=== PATIENT | male | born 1960 | race Caucasian/White ===

== ENCOUNTER 2016-09-04 23:40 | Emergency (ER) | payer OTHER ==
[2016-09-05 02:12] LABS: BASO # 0.1 K/mm3 (0.0-0.2); BASO % 1.1 % (0.0-1.0); EOS # 0.3 K/mm3 (0.0-0.50); EOS % 3.1 % (0.0-3.0); LARGE UNSTAINED CELL # 0.1 K/mm3 (0.0-0.4); LARGE UNSTAINED CELL % 1.5 % (0.0-4.0); LYMPH # 2.6 K/mm3 (1.5-4.5); LYMPH % 28.5 % (24.0-44.0); MEAN CORPUSCULAR HEMOGLOBIN 31.2 pg (27.0-33.0); MEAN CORPUSCULAR HGB CONC 33.8 g/dl (32.0-36.5); MEAN CORPUSCULAR VOLUME 92.3 fl (80.0-96.0); MONO # 0.7 K/mm3 (0.0-0.8); MONO % 7.5 % (0.0-5.0); NEUTROPHILS # 5.2 K/mm3 (1.8-7.7); NEUTROPHILS % 58.4 % (36.0-66.0); PLATELET COUNT, AUTOMATED 324 k/mm3 (150-450); RED CELL DISTRIBUTION WIDTH 13.1 % (11.5-14.5); WHITE BLOOD COUNT 8.8 K/mm3 (4.0-10.0)
[2016-09-05 02:29] LABS: ALBUMIN/GLOBULIN RATIO 1.29 (1.00-1.93); ALKALINE PHOSPHATASE 69 U/L (45-117); ALT/SGPT 26 U/L (12-78); AMYLASE 80 U/L (25-115); ANION GAP 10 MEQ/L (8-16); AST/SGOT 13 U/L (15-37); BILIRUBIN,DIRECT < 0.1 MG/DL (0.0-0.2); BILIRUBIN,TOTAL 0.2 MG/DL (0.2-1.0); BLOOD UREA NITROGEN 6 MG/DL (7-18); CALCIUM LEVEL 8.7 MG/DL (8.5-10.1); CARBON DIOXIDE LEVEL 28 MEQ/L (21-32); CHLORIDE LEVEL 101 MEQ/L (98-107); CREATININE FOR GFR 0.86 MG/DL (0.70-1.30); GLOMERULAR FILTRATION RATE > 60.0 (>56); GLUCOSE, FASTING 100 MG/DL (70-105); POTASSIUM SERUM 3.5 MEQ/L (3.5-5.1); SODIUM LEVEL 139 MEQ/L (136-145); TOTAL PROTEIN 7.1 GM/DL (6.4-8.2)
[2016-09-05] MEDS ORDERED: KETOROLAC 30 MG/ML VIAL (J1885) As Ordered ONE (04:03)
[2016-09-05] MEDS ORDERED: ISOVUE-370 76% 100ML VIAL (Q9967) As Ordered ONE (04:22)
--- NOTE | 2016-09-05 05:30 | REPUSA ---
CLINICAL HISTORY: Abdominal pain. TECHNIQUE: Multiple axial, sagittal and coronal CT images were obtained through the abdomen and pelvi s after administration of intravenous contrast material. COMMENTS: The liver is mildly enlarged with decreased attenuation without mass or defect. There is no intra or extrahepatic biliary ductal dilatation. The spleen is normal. The gallbladder is within normal limits . The pancreas is of normal contour and attenuation characteristics. There is no evidence of adrenal mass. Both kidneys demonstrate prompt and equal nephrograms. The kidneys are normal in size, shape and conf iguration. There is no evidence of renal or ureteral mass. No renal or ureteral calculi are identifie d. There is no hydroureter or hydronephrosis. No evidence for appendicitis. There is mild midsigmoid wall thickening. Sigmoid diverticulosis. No e vidence for small or large bowel obstruction. There is no evidence of abdominal ascites or lymphadeno lloyd. There is no evidence of intrinsic or extrinsic bladder mass. There is no pelvic ascites or lymphadeno lloyd. Diffusely thickened bladder. Moderate prostatomegaly. Images of the lung bases show no evidence of pleural or parenchymal mass. There are no pleural effusi ons. The bony structures are free of lytic or blastic lesions. Multilevel degenerative changes are seen in volving the thoracolumbar spine. Scattered calcifications are seen involving the aorta and major bran ches compatible with atherosclerosis. IMPRESSION: Prostatomegaly. Thickened bladder. Under distention, chronic bladder obstruction versus mild cystitis. Mild thickening of the mid aspect of the sigmoid. Under distention versus mild colitis. Thank you for your kind referral of this patient.
--- NOTE | 2016-09-05 05:56 | EDDOCDS ---
Physician Documentation [facility] Name: Joel Pablo Age: 55 yrs Sex: Male : 1960 Arrival Date: 09/04/2016 Time: 23:40 Bed I8 / 16 Private MD: Disposition: 09/05/16 05:35 Discharged to Home/Self Care. Impression: Noninfective gastroenteritis and colitis, unspecified. - Condition is Stable. - Prescriptions for Prednisone 20 mg Oral Tablet - take 3 tablet by ORAL route once daily for 5 days; 15 tablet. Cipro 500 mg Oral Tablet - take 1 tablet by ORAL route every 12 hours; 14 tablet. Flagyl 500 mg Oral Tablet - take 1 tablet by ORAL route every 12 hours for 7 days; 14 tablet. - Medication Reconciliation, Local Pharmacy Hours form. - Follow up: Private Physician; When: 1 - 2 days; Reason: Recheck today's complaints. - Problem is an ongoing problem. - Symptoms have improved. Historical: - Allergies: No known drug Allergies; - Home Meds: 1. atorvastatin 10 mg oral tab 1 tab nightly (Last dose: 09/03/2016) 2. divalproex 500 mg oral TbEC 2 times per day 1 tab in AM 2 tabs in PM (Last dose: 09/04/2016) 3. duloxetine 30 mg Oral cpDR 1 cap once daily (Last dose: 09/04/2016) 4. losartan 100 mg oral tab 1 tab nightly (Last dose: 09/03/2016) 5. meloxicam 7.5 mg oral tab 1 tab once daily (Last dose: 09/03/2016) 6. methocarbamol 500 mg Oral tab tid (Last dose: Unknown) 7. nortriptyline 25 mg Oral cap 2 caps nightly (Last dose: 09/03/2016) 8. omeprazole 40 mg Oral cpDR 1 cap once daily (Last dose: 09/03/2016) - PMHx: Anxiety; Chronic Back pain; Depression; Diverticulosis; GERD; Hypercholesterolemia; Hypertension; - PSHx: Hernia repair- Left inguinal; Hernia repair- Right inguinal; - Social history: Smoking status: Patient uses tobacco products, heavy tobacco smoker. No barriers to communication noted, The patient speaks fluent [place] Islander, Speaks appropriately for age. - Family history: Not pertinent. - : The pt / caregiver states he / she is not on anticoagulants. Home medication list is obtained from the patient, [employer] import data. - Exposure Risk Screening:: None identified. Vital Signs: 09/05 02:06 BP 160 / 89; Pulse 89; Resp 16; Temp 97.9(TE); Pulse Ox 97% on R/A; Weight 99.79 kg / kmg1 220 lbs (R); Height 6 ft. 1 in. (185.42 cm) (R); 04:17 BP 141 / 75; Pulse 70; Resp 18; Temp 97.1(TE); Pulse Ox 100% on R/A; Pain 6/10; anna 05:50 BP 145 / 71; Pulse 77; Resp 18; Temp 97.6; Pulse Ox 96% on R/A; Pain 6/10; mlc 02:06 Body Mass Index 29.03 (99.79 kg, 185.42 cm) kmg1 MDM: 01:27 Undress patient appropriately for examination ordered. aug 01:27 IV Saline Lock ordered. aug 01:28 Amylase Ordered. EDMS 01:28 Basic Metabolic Profile Ordered. EDMS 01:28 CBC with Diff Ordered. EDMS 01:28 Lipase Ordered. EDMS 01:28 Liver Profile Ordered. EDMS 01:28 Urinalysis Ordered. EDMS 01:28 NOTHING BY MOUTH+DIET ordered. EDMS 03:51 Basic Metabolic Profile Reviewed. cs11 03:51 CBC with Diff Reviewed. cs11 03:51 Liver Profile Reviewed. cs11 03:51 Amylase Reviewed. cs11 03:51 Lipase Reviewed. cs11 03:51 Urinalysis Reviewed. cs11 03:52 ketorolac 30 mg IVP once ordered. cs11 03:53 CT ABD & PELVIS: IV Contrast Only Ordered. EDMS 04:09 Urine Culture Ordered. EDMS 04:12 Financial registration complete. [facility] 04:16 [facility] Payment Agreement was scanned into [employer] and attached to record. [facility] Administered Medications: 04:00 Drug: ketorolac 30 mg [ketorolac 30 mg/mL (1 mL) injection solution (1 mL)] Route: IVP; kmg1 Site: right antecubital; Signatures: [facility] Usha Vale RN RN [facility] Elly Bob RN RN jan Schiff, Craig, DO DO cs11 Melinda Stanford RN RN mlc Hook, Sandra slh The chart was reviewed and I authenticate all verbal orders and agree with the evaluation and treatment provided.Attachments: 04:16 [facility] Payment Agreement [facility] MTDD
--- NOTE | 2016-09-05 05:56 | EDDOCDS ---
Nurse's Notes [facility] Name: Joel Pablo Age: 55 yrs Sex: Male : 1960 Arrival Date: 09/04/2016 Time: 23:40 Bed I8 / 16 Private MD: Diagnosis: Noninfective gastroenteritis and colitis, unspecified Presentation: 09/05 00:07 Presenting complaint: Patient states: Pain low in abdomen radiating upward into kmg1 "stomach" pain began Tuesday morning. Progressively getting worse. Suicide/Homicide risk assessment- the patient denies having any suicidal and/or homicidal ideations and does not present with any other emotional, behavioral or mental health complaints. Status: Patient is not a auto servicer or dependent. Transition of care: patient was not received from another setting of care. 00:07 Acuity: BERE Level 3 kmg1 00:07 Method Of Arrival: Walkin/Carried/Asstd kmg1 05:54 Adult Sepsis Screening: The patient does not have new or worsening altered mentation. mlc Patient's respiratory rate is less than 22. Systolic blood pressure is greater than 100. Patient has a qSOFA score of 0- Negative Sepsis Screen. Triage Assessment: 00:12 General: Appears in no apparent distress, comfortable, Behavior is appropriate for age, kmg1 cooperative, pleasant. Pain: Location: suprapubic area Pain currently is 9 out of 10 on a pain scale. Quality of pain is described as aching, sharp, Is continuous. HIV screening NA for this visit Offered previously. GI: Reports upper abdominal pain. Historical: - Allergies: No known drug Allergies; - Home Meds: 1. atorvastatin 10 mg oral tab 1 tab nightly (Last dose: 09/03/2016) 2. divalproex 500 mg oral TbEC 2 times per day 1 tab in AM 2 tabs in PM (Last dose: 09/04/2016) 3. duloxetine 30 mg Oral cpDR 1 cap once daily (Last dose: 09/04/2016) 4. losartan 100 mg oral tab 1 tab nightly (Last dose: 09/03/2016) 5. meloxicam 7.5 mg oral tab 1 tab once daily (Last dose: 09/03/2016) 6. methocarbamol 500 mg Oral tab tid (Last dose: Unknown) 7. nortriptyline 25 mg Oral cap 2 caps nightly (Last dose: 09/03/2016) 8. omeprazole 40 mg Oral cpDR 1 cap once daily (Last dose: 09/03/2016) - PMHx: Anxiety; Chronic Back pain; Depression; Diverticulosis; GERD; Hypercholesterolemia; Hypertension; - PSHx: Hernia repair- Left inguinal; Hernia repair- Right inguinal; - Social history: Smoking status: Patient uses tobacco products, heavy tobacco smoker. No barriers to communication noted, The patient speaks fluent Polish, Speaks appropriately for age. - Family history: Not pertinent. - : The pt / caregiver states he / she is not on anticoagulants. Home medication list is obtained from the patient, [employer] import data. - Exposure Risk Screening:: None identified. Screenin:05 Screening information is obtained from the patient. Fall risk: No risks identified. kmg1 Assistance ADL's: requires no assistance with activities of daily living. Abuse/DV Screen: The patient / caregiver reports he/she is: not in a situation that causes fear, pain or injury. Nutritional screening: No deficits noted. Advance Directives: There is no active DNR order. home support is adequate. Assessment: 02:06 General: Appears in no apparent distress, comfortable, Behavior is appropriate for age, kmg1 cooperative. Pain: Location: suprapubic area Pain currently is 9 out of 10 on a pain scale. Quality of pain is described as sharp. GI: Abdomen is non- distended Bowel sounds present X 4 quads. Abd is soft X 4 quads Abd is tender to palpation in suprapubic area Reports lower abdominal pain. 03:15 General: Appears in no apparent distress, comfortable, Behavior is appropriate for age, kmg1 cooperative. Pain: Location: suprapubic area Pain currently is 8 out of 10 on a pain scale. 04:29 General: Appears in no apparent distress, comfortable, Behavior is appropriate for age, kmg1 cooperative. Pain: Location: suprapubic area Pain currently is 6 out of 10 on a pain scale. Quality of pain is described as sharp. GI: Abdomen is non- distended. 05:50 General: Appears in no apparent distress, comfortable, Behavior is cooperative. Pain: mlc Pain currently is 6 out of 10 on a pain scale. Neurological: Level of Consciousness is awake, alert, Oriented to person, place, time. Respiratory: Airway is patent Respiratory effort is even, unlabored, Respiratory pattern is regular. Vital Signs: 02:06 BP 160 / 89; Pulse 89; Resp 16; Temp 97.9(TE); Pulse Ox 97% on R/A; Weight 99.79 kg kmg1 (R); Height 6 ft. 1 in. (185.42 cm) (R); 04:17 BP 141 / 75; Pulse 70; Resp 18; Temp 97.1(TE); Pulse Ox 100% on R/A; Pain 6/10; anna 05:50 BP 145 / 71; Pulse 77; Resp 18; Temp 97.6; Pulse Ox 96% on R/A; Pain 6/10; mlc 02:06 Body Mass Index 29.03 (99.79 kg, 185.42 cm) [facility] [place]als: 00:12 Log In Time: September 04, 2016 at 23:40. [facility] [place] Course: 09/04 23:59 Patient visited by Nuvia Bowman. [facility] 23:59 Patient moved to Waiting [facility] 09/05 00:08 Triage Initiated km 00:29 Patient moved to Pre RCE cz 01:03 Patient moved to I8 / 16 cz 02:05 Inserted saline lock: 18 gauge in right antecubital area. Labs drawn. (by ED staff). km Sent per order to lab. Urine collected. Clean catch specimen. Urine specimen sent to lab. 02:06 The patient / caregiver is instructed regarding the plan of care and ED course. kmg1 02:06 Amylase Sent. kmg1 02:06 Basic Metabolic Profile Sent. kmg1 02:06 CBC with Diff Sent. kmg1 02:06 Lipase Sent. kmg1 02:06 Liver Profile Sent. kmg1 02:06 Urinalysis Sent. kmg1 02:06 No procedures done that require assistance. kmg1 02:09 Patient visited by Usha Vale RN. kmg1 03:28 Jagdish Clancy DO is Attending Physician. cs11 03:28 Patient visited by Jagdish Clancy DO. cs11 04:16 [facility] Payment Agreement was scanned into [employer] and attached to record. [facility] 04:17 Patient visited by Kimmy Mays PCA. anna 04:17 Patient name changed from Joel\\S\\Sunny\\S\\Pablo\\S\\ to Joel\\S\\Abhilash\\S\\Samy. EDMS 04:29 Patient visited by Usha Vale RN. [facility] 05:34 CT ABD & PELVIS: IV Contrast Only Returned. EDMS 05:50 Discontinued IV lock intact, bleeding controlled, pressure dressing applied, No mlc redness/swelling at site. Administered Medications: 04:00 Drug: ketorolac 30 mg [ketorolac 30 mg/mL (1 mL) injection solution (1 mL)] Route: IVP; [facility] Site: right antecubital; Order Results: Lab Order: Amylase; SPEC'M 09/05/16 02:00 Test: AMYLASE; Value: 80; Range: 25-115; Units: U/L; Status: F Lab Order: Basic Metabolic Profile; SPEC'M 09/05/16 02:00 Test: GLUCOSE, FASTING; Value: 100; Range: 70-105; Units: MG/DL; Status: F Test: BLOOD UREA NITROGEN; Value: 6; Range: 7-18; Abnormal: Below low normal; Units: MG/DL; Status: F Test: CREATININE FOR GFR; Value: 0.86; Range: 0.70-1.30; Units: MG/DL; Status: F Test: GLOMERULAR FILTRATION RATE; Value: > 60.0; Range: >56; Status: F Test: SODIUM LEVEL; Value: 139; Range: 136-145; Units: MEQ/L; Status: F Test: POTASSIUM SERUM; Value: 3.5; Range: 3.5-5.1; Units: MEQ/L; Status: F Test: CHLORIDE LEVEL; Value: 101; Range: 98-107; Units: MEQ/L; Status: F Test: CARBON DIOXIDE LEVEL; Value: 28; Range: 21-32; Units: MEQ/L; Status: F Test: ANION GAP; Value: 10; Range: 8-16; Units: MEQ/L; Status: F Test: CALCIUM LEVEL; Value: 8.7; Range: 8.5-10.1; Units: MG/DL; Status: F Test Note: ; Units are mL/min/1.73 m2 Chronic Kidney Disease Staging per NKF: Stage I & II GFR >=60 Normal to Mildly Decreased Stage III GFR 30-59 Moderately Decreased Stage IV GFR 15-29 Severely Decreased Stage V GFR <15 Very Little GFR Left ESRD GFR <15 on 3RD PRESSMAN Lab Order: CBC with Diff; SPEC'M 09/05/16 02:00 Test: WHITE BLOOD COUNT; Value: 8.8; Range: 4.0-10.0; Units: K/mm3; Status: F Test: RED BLOOD COUNT; Value: 4.63; Range: 4.30-6.10; Units: M/mm3; Status: F Test: HEMOGLOBIN; Value: 14.4; Range: 14.0-18.0; Units: g/dl; Status: F Test: HEMATOCRIT; Value: 42.7; Range: 42.0-52.0; Units: %; Status: F Test: MEAN CORPUSCULAR VOLUME; Value: 92.3; Range: 80.0-96.0; Units: fl; Status: F Test: MEAN CORPUSCULAR HEMOGLOBIN; Value: 31.2; Range: 27.0-33.0; Units: pg; Status: F Test: MEAN CORPUSCULAR HGB CONC; Value: 33.8; Range: 32.0-36.5; Units: g/dl; Status: F Test: RED CELL DISTRIBUTION WIDTH; Value: 13.1; Range: 11.5-14.5; Units: %; Status: F Test: PLATELET COUNT, AUTOMATED; Value: 324; Range: 150-450; Units: k/mm3; Status: F Test: NEUTROPHILS %; Value: 58.4; Range: 36.0-66.0; Units: %; Status: F Test: LYMPH %; Value: 28.5; Range: 24.0-44.0; Units: %; Status: F Test: MONO %; Value: 7.5; Range: 0.0-5.0; Abnormal: Above high normal; Units: %; Status: F Test: EOS %; Value: 3.1; Range: 0.0-3.0; Abnormal: Above high normal; Units: %; Status: F Test: BASO %; Value: 1.1; Range: 0.0-1.0; Abnormal: Above high normal; Units: %; Status: F Test: LARGE UNSTAINED CELL %; Value: 1.5; Range: 0.0-4.0; Units: %; Status: F Test: NEUTROPHILS #; Value: 5.2; Range: 1.8-7.7; Units: K/mm3; Status: F Test: LYMPH #; Value: 2.6; Range: 1.5-4.5; Units: K/mm3; Status: F Test: MONO #; Value: 0.7; Range: 0.0-0.8; Units: K/mm3; Status: F Test: EOS #; Value: 0.3; Range: 0.0-0.50; Units: K/mm3; Status: F Test: BASO #; Value: 0.1; Range: 0.0-0.2; Units: K/mm3; Status: F Test: LARGE UNSTAINED CELL #; Value: 0.1; Range: 0.0-0.4; Units: K/mm3; Status: F Lab Order: Lipase; SPEC'M 09/05/16 02:00 Test: LIPASE; Value: 200; Range: 73-393; Units: U/L; Status: F Lab Order: Liver Profile; SPEC' 09/05/16 02:00 Test: AST/SGOT; Value: 13; Range: 15-37; Abnormal: Below low normal; Units: U/L; Status: F Test: ALT/SGPT; Value: 26; Range: 12-78; Units: U/L; Status: F Test: ALKALINE PHOSPHATASE; Value: 69; Range: 45-117; Units: U/L; Status: F Test: BILIRUBIN,TOTAL; Value: 0.2; Range: 0.2-1.0; Units: MG/DL; Status: F Test: BILIRUBIN,DIRECT; Value: < 0.1; Range: 0.0-0.2; Units: MG/DL; Status: F Test: TOTAL PROTEIN; Value: 7.1; Range: 6.4-8.2; Units: GM/DL; Status: F Test: ALBUMIN; Value: 4.0; Range: 3.2-5.2; Units: GM/DL; Status: F Test: ALBUMIN/GLOBULIN RATIO; Value: 1.29; Range: 1.00-1.93; Status: F Lab Order: Urinalysis; SPEC' 09/05/16 02:00 Test: APPEARANCE, URINE; Value: CLEAR; Range: CLEAR; Status: F Test: COLOR, URINE; Value: STRAW; Range: YELLOW; Status: F Test: PH,URINE; Value: 7.0; Range: 5.0-9.0; Units: UNITS; Status: F Test: SPECIFIC GRAVITY URINE AUTO; Value: 1.002; Range: 1.002-1.035; Status: F Test: PROTEIN, URINE AUTO; Value: NEGATIVE; Range: NEGATIVE; Units: mg/dL; Status: F Test: GLUCOSE, URINE (UA) AUTO; Value: NEGATIVE; Range: NEGATIVE; Units: mg/dL; Status: F Test: KETONE, URINE AUTO; Value: NEGATIVE; Range: NEGATIVE; Units: mg/dL; Status: F Test: UROBILINOGEN, URINE AUTO; Value: 0.2; Range: 0.0-2.0; Units: mg/dL; Status: F Test: BILIRUBIN, URINE AUTO; Value: NEGATIVE; Range: NEGATIVE; Status: F Test: NITRITE, URINE AUTO; Value: NEGATIVE; Range: NEGATIVE; Status: F Test: LEUKOCYTE ESTERASE, URINE AUTO; Value: NEGATIVE; Range: NEGATIVE; Status: F Test: BLOOD, URINE BLOOD; Value: NEGATIVE; Range: NEGATIVE; Status: F Test: WBC, URINE AUTO; Value: 0; Range: 0-3; Units: /HPF; Status: F Test: RBC, URINE AUTO; Value: 2; Range: 0-3; Units: /HPF; Status: F Test: BACTERIA, URINE AUTO; Value: NEGATIVE; Range: NEGATIVE; Status: F Test: SQUAMOUS EPITHELIAL CELL UR AU; Value: 0; Range: 0-6; Units: /HPF; Status: F Test: HYALINE CAST, URINE AUTO; Value: 0; Range: 0-1; Units: /LPF; Status: F Radiology Order: CT ABD & PELVIS: IV Contrast Only Test: CT ABD & PELVIS: IV Contrast Only REASON FOR EXAMINATION: Diverticulitis; ; CLINICAL HISTORY: Abdominal pain.; TECHNIQUE: Multiple axial, sagittal and coronal CT images were obtained through the abdomen and pelvi; s after administration of intravenous contrast material.; COMMENTS:; The liver is mildly enlarged with decreased attenuation without mass or defect. There is no intra or; extrahepatic biliary ductal dilatation. The spleen is normal. The gallbladder is within normal limits; . The pancreas is of normal contour and attenuation characteristics. There is no evidence of adrenal; mass.; Both kidneys demonstrate prompt and equal nephrograms. The kidneys are normal in size, shape and conf; iguration. There is no evidence of renal or ureteral mass. No renal or ureteral calculi are identifie; d. There is no hydroureter or hydronephrosis.; No evidence for appendicitis. There is mild midsigmoid wall thickening. Sigmoid diverticulosis. No e; vidence for small or large bowel obstruction. There is no evidence of abdominal ascites or lymphadeno; lloyd.; There is no evidence of intrinsic or extrinsic bladder mass. There is no pelvic ascites or lymphadeno; lloyd. Diffusely thickened bladder. Moderate prostatomegaly.; Images of the lung bases show no evidence of pleural or parenchymal mass. There are no pleural effusi; ons.; The bony structures are free of lytic or blastic lesions. Multilevel degenerative changes are seen in; volving the thoracolumbar spine. Scattered calcifications are seen involving the aorta and major bran; ches compatible with atherosclerosis.; IMPRESSION:; Prostatomegaly.; Thickened bladder. Under distention, chronic bladder obstruction versus mild cystitis.; Mild thickening of the mid aspect of the sigmoid. Under distention versus mild colitis.; Thank you for your kind referral of this patient.; ; Outcome: 05:35 Discharge ordered by Provider. cs11 05:50 Discharge Assessment: Patient awake, alert and oriented x 3. No cognitive and/or mlc functional deficits noted. Patient verbalized understanding of disposition instructions. patient administered narcotics - no. The following High Risk Discharge criteria are identified: None. Discharged to home ambulatory. Condition: good Condition: stable. Discharge instructions given to patient, Instructed on discharge instructions, follow up and referral plans. medication usage, Demonstrated understanding of instructions, medications, Pt was receptive of discharge instructions/ teaching. Prescriptions given X 3. CT Study completed. Property sent home with patient. 05:55 Patient left the ED. mlc Signatures: Dispatcher [employer] EDMS Usha Vale, RN RN kmg1 Lorenzo Moncada RN RN cz Ewald, Destiny, [employer] PROCESSING INSPECTOR Jagdish Glover DO DO cs11 Melinda Stanford RN RN mlc Hook, Sandra slh Beck, Gabriela gjb MTDD
--- NOTE | 2016-09-07 06:56 | EDDOCDS ---
Physician Documentation [facility] Name: Joel Pablo Age: 55 yrs Sex: Male : 1960 Arrival Date: 09/04/2016 Time: 23:40 Bed I8 / 16 Private MD: Disposition: 09/05/16 05:35 Discharged to Home/Self Care. Impression: Noninfective gastroenteritis and colitis, unspecified. - Condition is Stable. - Prescriptions for Prednisone 20 mg Oral Tablet - take 3 tablet by ORAL route once daily for 5 days; 15 tablet. Cipro 500 mg Oral Tablet - take 1 tablet by ORAL route every 12 hours; 14 tablet. Flagyl 500 mg Oral Tablet - take 1 tablet by ORAL route every 12 hours for 7 days; 14 tablet. - Medication Reconciliation, Local Pharmacy Hours form. - Follow up: Private Physician; When: 1 - 2 days; Reason: Recheck today's complaints. - Problem is an ongoing problem. - Symptoms have improved. Historical: - Allergies: No known drug Allergies; - Home Meds: 1. atorvastatin 10 mg oral tab 1 tab nightly (Last dose: 09/03/2016) 2. divalproex 500 mg oral TbEC 2 times per day 1 tab in AM 2 tabs in PM (Last dose: 09/04/2016) 3. duloxetine 30 mg Oral cpDR 1 cap once daily (Last dose: 09/04/2016) 4. losartan 100 mg oral tab 1 tab nightly (Last dose: 09/03/2016) 5. meloxicam 7.5 mg oral tab 1 tab once daily (Last dose: 09/03/2016) 6. methocarbamol 500 mg Oral tab tid (Last dose: Unknown) 7. nortriptyline 25 mg Oral cap 2 caps nightly (Last dose: 09/03/2016) 8. omeprazole 40 mg Oral cpDR 1 cap once daily (Last dose: 09/03/2016) - PMHx: Anxiety; Chronic Back pain; Depression; Diverticulosis; GERD; Hypercholesterolemia; Hypertension; - PSHx: Hernia repair- Left inguinal; Hernia repair- Right inguinal; - Social history: Smoking status: Patient uses tobacco products, heavy tobacco smoker. No barriers to communication noted, The patient speaks fluent Urdu, Speaks appropriately for age. - Family history: Not pertinent. - : The pt / caregiver states he / she is not on anticoagulants. Home medication list is obtained from the patient, [employer] import data. - Exposure Risk Screening:: None identified. Vital Signs: 09/05 02:06 BP 160 / 89; Pulse 89; Resp 16; Temp 97.9(TE); Pulse Ox 97% on R/A; Weight 99.79 kg / kmg1 220 lbs (R); Height 6 ft. 1 in. (185.42 cm) (R); 04:17 BP 141 / 75; Pulse 70; Resp 18; Temp 97.1(TE); Pulse Ox 100% on R/A; Pain 6/10; anna 05:50 BP 145 / 71; Pulse 77; Resp 18; Temp 97.6; Pulse Ox 96% on R/A; Pain 6/10; mlc 02:06 Body Mass Index 29.03 (99.79 kg, 185.42 cm) kmg1 MDM: 01:27 Undress patient appropriately for examination ordered. aug 01:27 IV Saline Lock ordered. aug 01:28 Amylase Ordered. EDMS 01:28 Basic Metabolic Profile Ordered. EDMS 01:28 CBC with Diff Ordered. EDMS 01:28 Lipase Ordered. EDMS 01:28 Liver Profile Ordered. EDMS 01:28 Urinalysis Ordered. EDMS 01:28 NOTHING BY MOUTH+DIET ordered. EDMS 03:51 Basic Metabolic Profile Reviewed. cs11 03:51 CBC with Diff Reviewed. cs11 03:51 Liver Profile Reviewed. cs11 03:51 Amylase Reviewed. cs11 03:51 Lipase Reviewed. cs11 03:51 Urinalysis Reviewed. cs11 03:52 ketorolac 30 mg IVP once ordered. cs11 03:53 CT ABD & PELVIS: IV Contrast Only Ordered. EDMS 04:09 Urine Culture Ordered. EDMS 04:12 Financial registration complete. [facility] 04:16 [facility] Payment Agreement was scanned into [employer] and attached to record. [facility] 18:20 T-Sheet-- Draft Copy was scanned into [employer] and attached to record. klr Administered Medications: 04:00 Drug: ketorolac 30 mg [ketorolac 30 mg/mL (1 mL) injection solution (1 mL)] Route: IVP; [facility] [place] Site: right antecubital; Signatures: Dispatcher [facility] EDHI Usha Vale RN RN [facility] [place] [place] Elly Bob RN RN jan Schiff, Craig, DO cs11 Melinda Stanford RN RN mlc Hook, Sandra slh Redder, Kathie klr The chart was reviewed and I authenticate all verbal orders and agree with the evaluation and treatment provided.Attachments: 04:16 [facility] Payment Agreement [facility] 18:20 T-Sheet-- Draft Copy klr Chart Complete MTDD
--- NOTE | 2016-09-07 06:56 | EDDOCDS ---
Nurse's Notes [facility] Name: Joel Pablo Age: 55 yrs Sex: Male : 1960 Arrival Date: 09/04/2016 Time: 23:40 Bed I8 / 16 Private MD: Diagnosis: Noninfective gastroenteritis and colitis, unspecified Presentation: 09/05 00:07 Presenting complaint: Patient states: Pain low in abdomen radiating upward into kmg1 "stomach" pain began Tuesday morning. Progressively getting worse. Suicide/Homicide risk assessment- the patient denies having any suicidal and/or homicidal ideations and does not present with any other emotional, behavioral or mental health complaints. Status: Patient is not a auto service writer or dependent. Transition of care: patient was not received from another setting of care. 00:07 Acuity: BERE Level 3 kmg1 00:07 Method Of Arrival: Walkin/Carried/Asstd kmg1 05:54 Adult Sepsis Screening: The patient does not have new or worsening altered mentation. mlc Patient's respiratory rate is less than 22. Systolic blood pressure is greater than 100. Patient has a qSOFA score of 0- Negative Sepsis Screen. Triage Assessment: 00:12 General: Appears in no apparent distress, comfortable, Behavior is appropriate for age, kmg1 cooperative, pleasant. Pain: Location: suprapubic area Pain currently is 9 out of 10 on a pain scale. Quality of pain is described as aching, sharp, Is continuous. HIV screening NA for this visit Offered previously. GI: Reports upper abdominal pain. Historical: - Allergies: No known drug Allergies; - Home Meds: 1. atorvastatin 10 mg oral tab 1 tab nightly (Last dose: 09/03/2016) 2. divalproex 500 mg oral TbEC 2 times per day 1 tab in AM 2 tabs in PM (Last dose: 09/04/2016) 3. duloxetine 30 mg Oral cpDR 1 cap once daily (Last dose: 09/04/2016) 4. losartan 100 mg oral tab 1 tab nightly (Last dose: 09/03/2016) 5. meloxicam 7.5 mg oral tab 1 tab once daily (Last dose: 09/03/2016) 6. methocarbamol 500 mg Oral tab tid (Last dose: Unknown) 7. nortriptyline 25 mg Oral cap 2 caps nightly (Last dose: 09/03/2016) 8. omeprazole 40 mg Oral cpDR 1 cap once daily (Last dose: 09/03/2016) - PMHx: Anxiety; Chronic Back pain; Depression; Diverticulosis; GERD; Hypercholesterolemia; Hypertension; - PSHx: Hernia repair- Left inguinal; Hernia repair- Right inguinal; - Social history: Smoking status: Patient uses tobacco products, heavy tobacco smoker. No barriers to communication noted, The patient speaks fluent Ukrainian, Speaks appropriately for age. - Family history: Not pertinent. - : The pt / caregiver states he / she is not on anticoagulants. Home medication list is obtained from the patient, [employer] import data. - Exposure Risk Screening:: None identified. Screenin:05 Screening information is obtained from the patient. Fall risk: No risks identified. kmg1 Assistance ADL's: requires no assistance with activities of daily living. Abuse/DV Screen: The patient / caregiver reports he/she is: not in a situation that causes fear, pain or injury. Nutritional screening: No deficits noted. Advance Directives: There is no active DNR order. home support is adequate. Assessment: 02:06 General: Appears in no apparent distress, comfortable, Behavior is appropriate for age, kmg1 cooperative. Pain: Location: suprapubic area Pain currently is 9 out of 10 on a pain scale. Quality of pain is described as sharp. GI: Abdomen is non- distended Bowel sounds present X 4 quads. Abd is soft X 4 quads Abd is tender to palpation in suprapubic area Reports lower abdominal pain. 03:15 General: Appears in no apparent distress, comfortable, Behavior is appropriate for age, kmg1 cooperative. Pain: Location: suprapubic area Pain currently is 8 out of 10 on a pain scale. 04:29 General: Appears in no apparent distress, comfortable, Behavior is appropriate for age, kmg1 cooperative. Pain: Location: suprapubic area Pain currently is 6 out of 10 on a pain scale. Quality of pain is described as sharp. GI: Abdomen is non- distended. 05:50 General: Appears in no apparent distress, comfortable, Behavior is cooperative. Pain: mlc Pain currently is 6 out of 10 on a pain scale. Neurological: Level of Consciousness is awake, alert, Oriented to person, place, time. Respiratory: Airway is patent Respiratory effort is even, unlabored, Respiratory pattern is regular. Vital Signs: 02:06 BP 160 / 89; Pulse 89; Resp 16; Temp 97.9(TE); Pulse Ox 97% on R/A; Weight 99.79 kg kmg1 (R); Height 6 ft. 1 in. (185.42 cm) (R); 04:17 BP 141 / 75; Pulse 70; Resp 18; Temp 97.1(TE); Pulse Ox 100% on R/A; Pain 6/10; anna 05:50 BP 145 / 71; Pulse 77; Resp 18; Temp 97.6; Pulse Ox 96% on R/A; Pain 6/10; mlc 02:06 Body Mass Index 29.03 (99.79 kg, 185.42 cm) [facility] Vitals: 00:12 Log In Time: September 04, 2016 at 23:40. [facility] ED Course: 09/04 23:59 Patient visited by Nuvia Bowman. [facility] 23:59 Patient moved to Waiting [facility] 09/05 00:08 Triage Initiated km 00:29 Patient moved to Pre RCE cz 01:03 Patient moved to I8 / 16 cz 02:05 Inserted saline lock: 18 gauge in right antecubital area. Labs drawn. (by ED staff). km Sent per order to lab. Urine collected. Clean catch specimen. Urine specimen sent to lab. 02:06 The patient / caregiver is instructed regarding the plan of care and ED course. kmg1 02:06 Amylase Sent. kmg1 02:06 Basic Metabolic Profile Sent. kmg1 02:06 CBC with Diff Sent. kmg1 02:06 Lipase Sent. kmg1 02:06 Liver Profile Sent. kmg1 02:06 Urinalysis Sent. kmg1 02:06 No procedures done that require assistance. kmg1 02:09 Patient visited by Usha Vale RN. kmg1 03:28 Jagdish Clancy DO is Attending Physician. cs11 03:28 Patient visited by Jagdish Clancy DO. cs11 04:16 [facility] Payment Agreement was scanned into [employer] and attached to record. [facility] 04:17 Patient visited by Kimmy Mays PCA. anna 04:17 Patient name changed from Joel\\S\\Sunny\\S\\Pablo\\S\\ to Joel\\S\\Abhilash\\S\\Samy. EDMS 04:29 Patient visited by Usha Vale RN. [facility] 05:34 CT ABD & PELVIS: IV Contrast Only Returned. EDMS 05:50 Discontinued IV lock intact, bleeding controlled, pressure dressing applied, No mlc redness/swelling at site. 18:20 T-Sheet-- Draft Copy was scanned into [employer] and attached to record. klr Administered Medications: 04:00 Drug: ketorolac 30 mg [ketorolac 30 mg/mL (1 mL) injection solution (1 mL)] Route: IVP; [facility] Site: right antecubital; Order Results: Lab Order: Amylase; SPEC'M 09/05/16 02:00 Test: AMYLASE; Value: 80; Range: 25-115; Units: U/L; Status: F Lab Order: Basic Metabolic Profile; SPEC'M 09/05/16 02:00 Test: GLUCOSE, FASTING; Value: 100; Range: 70-105; Units: MG/DL; Status: F Test: BLOOD UREA NITROGEN; Value: 6; Range: 7-18; Abnormal: Below low normal; Units: MG/DL; Status: F Test: CREATININE FOR GFR; Value: 0.86; Range: 0.70-1.30; Units: MG/DL; Status: F Test: GLOMERULAR FILTRATION RATE; Value: > 60.0; Range: >56; Status: F Test: SODIUM LEVEL; Value: 139; Range: 136-145; Units: MEQ/L; Status: F Test: POTASSIUM SERUM; Value: 3.5; Range: 3.5-5.1; Units: MEQ/L; Status: F Test: CHLORIDE LEVEL; Value: 101; Range: 98-107; Units: MEQ/L; Status: F Test: CARBON DIOXIDE LEVEL; Value: 28; Range: 21-32; Units: MEQ/L; Status: F Test: ANION GAP; Value: 10; Range: 8-16; Units: MEQ/L; Status: F Test: CALCIUM LEVEL; Value: 8.7; Range: 8.5-10.1; Units: MG/DL; Status: F Test Note: ; Units are mL/min/1.73 m2 Chronic Kidney Disease Staging per NKF: Stage I & II GFR >=60 Normal to Mildly Decreased Stage III GFR 30-59 Moderately Decreased Stage IV GFR 15-29 Severely Decreased Stage V GFR <15 Very Little GFR Left ESRD GFR <15 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 Lab Order: CBC with Diff; SPEC'M 09/05/16 02:00 Test: WHITE BLOOD COUNT; Value: 8.8; Range: 4.0-10.0; Units: K/mm3; Status: F Test: RED BLOOD COUNT; Value: 4.63; Range: 4.30-6.10; Units: M/mm3; Status: F Test: HEMOGLOBIN; Value: 14.4; Range: 14.0-18.0; Units: g/dl; Status: F Test: HEMATOCRIT; Value: 42.7; Range: 42.0-52.0; Units: %; Status: F Test: MEAN CORPUSCULAR VOLUME; Value: 92.3; Range: 80.0-96.0; Units: fl; Status: F Test: MEAN CORPUSCULAR HEMOGLOBIN; Value: 31.2; Range: 27.0-33.0; Units: pg; Status: F Test: MEAN CORPUSCULAR HGB CONC; Value: 33.8; Range: 32.0-36.5; Units: g/dl; Status: F Test: RED CELL DISTRIBUTION WIDTH; Value: 13.1; Range: 11.5-14.5; Units: %; Status: F Test: PLATELET COUNT, AUTOMATED; Value: 324; Range: 150-450; Units: k/mm3; Status: F Test: NEUTROPHILS %; Value: 58.4; Range: 36.0-66.0; Units: %; Status: F Test: LYMPH %; Value: 28.5; Range: 24.0-44.0; Units: %; Status: F Test: MONO %; Value: 7.5; Range: 0.0-5.0; Abnormal: Above high normal; Units: %; Status: F Test: EOS %; Value: 3.1; Range: 0.0-3.0; Abnormal: Above high normal; Units: %; Status: F Test: BASO %; Value: 1.1; Range: 0.0-1.0; Abnormal: Above high normal; Units: %; Status: F Test: LARGE UNSTAINED CELL %; Value: 1.5; Range: 0.0-4.0; Units: %; Status: F Test: NEUTROPHILS #; Value: 5.2; Range: 1.8-7.7; Units: K/mm3; Status: F Test: LYMPH #; Value: 2.6; Range: 1.5-4.5; Units: K/mm3; Status: F Test: MONO #; Value: 0.7; Range: 0.0-0.8; Units: K/mm3; Status: F Test: EOS #; Value: 0.3; Range: 0.0-0.50; Units: K/mm3; Status: F Test: BASO #; Value: 0.1; Range: 0.0-0.2; Units: K/mm3; Status: F Test: LARGE UNSTAINED CELL #; Value: 0.1; Range: 0.0-0.4; Units: K/mm3; Status: F Lab Order: Lipase; [facility]' 09/05/16 02:00 Test: LIPASE; Value: 200; Range: 73-393; Units: U/L; Status: F Lab Order: Liver Profile; [facility] 09/05/16 02:00 Test: AST/SGOT; Value: 13; Range: 15-37; Abnormal: Below low normal; Units: U/L; Status: F Test: ALT/SGPT; Value: 26; Range: 12-78; Units: U/L; Status: F Test: ALKALINE PHOSPHATASE; Value: 69; Range: 45-117; Units: U/L; Status: F Test: BILIRUBIN,TOTAL; Value: 0.2; Range: 0.2-1.0; Units: MG/DL; Status: F Test: BILIRUBIN,DIRECT; Value: < 0.1; Range: 0.0-0.2; Units: MG/DL; Status: F Test: TOTAL PROTEIN; Value: 7.1; Range: 6.4-8.2; Units: GM/DL; Status: F Test: ALBUMIN; Value: 4.0; Range: 3.2-5.2; Units: GM/DL; Status: F Test: ALBUMIN/GLOBULIN RATIO; Value: 1.29; Range: 1.00-1.93; Status: F Lab Order: Urinalysis; [facility]' 09/05/16 02:00 Test: APPEARANCE, URINE; Value: CLEAR; Range: CLEAR; Status: F Test: COLOR, URINE; Value: STRAW; Range: YELLOW; Status: F Test: PH,URINE; Value: 7.0; Range: 5.0-9.0; Units: UNITS; Status: F Test: SPECIFIC GRAVITY URINE AUTO; Value: 1.002; Range: 1.002-1.035; Status: F Test: PROTEIN, URINE AUTO; Value: NEGATIVE; Range: NEGATIVE; Units: mg/dL; Status: F Test: GLUCOSE, URINE (UA) AUTO; Value: NEGATIVE; Range: NEGATIVE; Units: mg/dL; Status: F Test: KETONE, URINE AUTO; Value: NEGATIVE; Range: NEGATIVE; Units: mg/dL; Status: F Test: UROBILINOGEN, URINE AUTO; Value: 0.2; Range: 0.0-2.0; Units: mg/dL; Status: F Test: BILIRUBIN, URINE AUTO; Value: NEGATIVE; Range: NEGATIVE; Status: F Test: NITRITE, URINE AUTO; Value: NEGATIVE; Range: NEGATIVE; Status: F Test: LEUKOCYTE ESTERASE, URINE AUTO; Value: NEGATIVE; Range: NEGATIVE; Status: F Test: BLOOD, URINE BLOOD; Value: NEGATIVE; Range: NEGATIVE; Status: F Test: WBC, URINE AUTO; Value: 0; Range: 0-3; Units: /HPF; Status: F Test: RBC, URINE AUTO; Value: 2; Range: 0-3; Units: /HPF; Status: F Test: BACTERIA, URINE AUTO; Value: NEGATIVE; Range: NEGATIVE; Status: F Test: SQUAMOUS EPITHELIAL CELL UR AU; Value: 0; Range: 0-6; Units: /HPF; Status: F Test: HYALINE CAST, URINE AUTO; Value: 0; Range: 0-1; Units: /LPF; Status: F Lab Order: Urine Culture; SPEC'M 09/05/16 02:00 Test: URINE CULTURE; Value: URINE CULTURE RESULT NO GROWTH; Status: F Radiology Order: CT ABD & PELVIS: IV Contrast Only Test: CT ABD & PELVIS: IV Contrast Only REASON FOR EXAMINATION: Diverticulitis; ; CLINICAL HISTORY: Abdominal pain.; TECHNIQUE: Multiple axial, sagittal and coronal CT images were obtained through the abdomen and pelvi; s after administration of intravenous contrast material.; COMMENTS:; The liver is mildly enlarged with decreased attenuation without mass or defect. There is no intra or; extrahepatic biliary ductal dilatation. The spleen is normal. The gallbladder is within normal limits; . The pancreas is of normal contour and attenuation characteristics. There is no evidence of adrenal; mass.; Both kidneys demonstrate prompt and equal nephrograms. The kidneys are normal in size, shape and conf; iguration. There is no evidence of renal or ureteral mass. No renal or ureteral calculi are identifie; d. There is no hydroureter or hydronephrosis.; No evidence for appendicitis. There is mild midsigmoid wall thickening. Sigmoid diverticulosis. No e; vidence for small or large bowel obstruction. There is no evidence of abdominal ascites or lymphadeno; lloyd.; There is no evidence of intrinsic or extrinsic bladder mass. There is no pelvic ascites or lymphadeno; lloyd. Diffusely thickened bladder. Moderate prostatomegaly.; Images of the lung bases show no evidence of pleural or parenchymal mass. There are no pleural effusi; ons.; The bony structures are free of lytic or blastic lesions. Multilevel degenerative changes are seen in; volving the thoracolumbar spine. Scattered calcifications are seen involving the aorta and major bran; ches compatible with atherosclerosis.; IMPRESSION:; Prostatomegaly.; Thickened bladder. Under distention, chronic bladder obstruction versus mild cystitis.; Mild thickening of the mid aspect of the sigmoid. Under distention versus mild colitis.; Thank you for your kind referral of this patient.; ; Outcome: 05:35 Discharge ordered by Provider. cs11 05:50 Discharge Assessment: Patient awake, alert and oriented x 3. No cognitive and/or mlc functional deficits noted. Patient verbalized understanding of disposition instructions. patient administered narcotics - no. The following High Risk Discharge criteria are identified: None. Discharged to home ambulatory. Condition: good Condition: stable. Discharge instructions given to patient, Instructed on discharge instructions, follow up and referral plans. medication usage, Demonstrated understanding of instructions, medications, Pt was receptive of discharge instructions/ teaching. Prescriptions given X 3. CT Study completed. Property sent home with patient. 05:55 Patient left the ED. mlc Signatures: [facility] Usha Vael RN RN kmg1 Lorenzo Moncada RN RN cz Ewald, Destiny, JEEP MECHANIC JEEP MECHANIC Jagdish Glover DO DO cs11 Melinda Stanford,RN RN Cortney Peterson Gabriela gjb Redder, Kathie klr Chart Complete MTDD
--- NOTE | 2016-09-07 06:56 | EDDOCDS ---
Physician Documentation [facility] Name: Joel Pablo Age: 55 yrs Sex: Male : 1960 Arrival Date: 09/04/2016 Time: 23:40 Bed I8 / 16 Private MD: Disposition: 09/05/16 05:35 Discharged to Home/Self Care. Impression: Noninfective gastroenteritis and colitis, unspecified. - Condition is Stable. - Prescriptions for Prednisone 20 mg Oral Tablet - take 3 tablet by ORAL route once daily for 5 days; 15 tablet. Cipro 500 mg Oral Tablet - take 1 tablet by ORAL route every 12 hours; 14 tablet. Flagyl 500 mg Oral Tablet - take 1 tablet by ORAL route every 12 hours for 7 days; 14 tablet. - Medication Reconciliation, Local Pharmacy Hours form. - Follow up: Private Physician; When: 1 - 2 days; Reason: Recheck today's complaints. - Problem is an ongoing problem. - Symptoms have improved. Historical: - Allergies: No known drug Allergies; - Home Meds: 1. atorvastatin 10 mg oral tab 1 tab nightly (Last dose: 09/03/2016) 2. divalproex 500 mg oral TbEC 2 times per day 1 tab in AM 2 tabs in PM (Last dose: 09/04/2016) 3. duloxetine 30 mg Oral cpDR 1 cap once daily (Last dose: 09/04/2016) 4. losartan 100 mg oral tab 1 tab nightly (Last dose: 09/03/2016) 5. meloxicam 7.5 mg oral tab 1 tab once daily (Last dose: 09/03/2016) 6. methocarbamol 500 mg Oral tab tid (Last dose: Unknown) 7. nortriptyline 25 mg Oral cap 2 caps nightly (Last dose: 09/03/2016) 8. omeprazole 40 mg Oral cpDR 1 cap once daily (Last dose: 09/03/2016) - PMHx: Anxiety; Chronic Back pain; Depression; Diverticulosis; GERD; Hypercholesterolemia; Hypertension; - PSHx: Hernia repair- Left inguinal; Hernia repair- Right inguinal; - Social history: Smoking status: Patient uses tobacco products, heavy tobacco smoker. No barriers to communication noted, The patient speaks fluent Persian, Speaks appropriately for age. - Family history: Not pertinent. - : The pt / caregiver states he / she is not on anticoagulants. Home medication list is obtained from the patient, [employer] import data. - Exposure Risk Screening:: None identified. Vital Signs: 09/05 02:06 BP 160 / 89; Pulse 89; Resp 16; Temp 97.9(TE); Pulse Ox 97% on R/A; Weight 99.79 kg / kmg1 220 lbs (R); Height 6 ft. 1 in. (185.42 cm) (R); 04:17 BP 141 / 75; Pulse 70; Resp 18; Temp 97.1(TE); Pulse Ox 100% on R/A; Pain 6/10; anna 05:50 BP 145 / 71; Pulse 77; Resp 18; Temp 97.6; Pulse Ox 96% on R/A; Pain 6/10; mlc 02:06 Body Mass Index 29.03 (99.79 kg, 185.42 cm) kmg1 MDM: 01:27 Undress patient appropriately for examination ordered. aug 01:27 IV Saline Lock ordered. aug 01:28 Amylase Ordered. EDMS 01:28 Basic Metabolic Profile Ordered. EDMS 01:28 CBC with Diff Ordered. EDMS 01:28 Lipase Ordered. EDMS 01:28 Liver Profile Ordered. EDMS 01:28 Urinalysis Ordered. EDMS 01:28 NOTHING BY MOUTH+DIET ordered. EDMS 03:51 Basic Metabolic Profile Reviewed. cs11 03:51 CBC with Diff Reviewed. cs11 03:51 Liver Profile Reviewed. cs11 03:51 Amylase Reviewed. cs11 03:51 Lipase Reviewed. cs11 03:51 Urinalysis Reviewed. cs11 03:52 ketorolac 30 mg IVP once ordered. cs11 03:53 CT ABD & PELVIS: IV Contrast Only Ordered. EDMS 04:09 Urine Culture Ordered. EDMS 04:[address] [facility] 04:16 [facility] Payment Agreement was scanned into [employer] and attached to record. [facility] 18:20 T-Sheet-- Draft Copy was scanned into [employer] and attached to record. klr Administered Medications: 04:00 Drug: ketorolac 30 mg [ketorolac 30 mg/mL (1 mL) injection solution (1 mL)] Route: IVP; [facility] Site: right antecubital; Signatures: Dispatcher [facility] EDAR Usha Vale RN RN [facility] Elly Bob RN RN jan Schiff, Craig, DO cs11 Melinda Stanford RN RN mlc Hook, Sandra slh Redder, Kathie klr The chart was reviewed and I authenticate all verbal orders and agree with the evaluation and treatment provided.Attachments: 04:16 [facility] Payment Agreement [facility] 18:20 T-Sheet-- Draft Copy klr Chart Complete MTDD
== END 2016-09-05 05:55 | disposition home or self-care (01) ==
LOC: M ED 23:40
DX: K52.9 Noninfective gastroenteritis and colitis, unspecified (principal); I10 Essential (primary) hypertension; F41.9 Anxiety disorder, unspecified; F32.9 Major depressive disorder, single episode, unspecified; M54.9 Dorsalgia, unspecified; G89.29 Other chronic pain; Z87.19 Personal history of other diseases of the digestive system; E78.00 Pure hypercholesterolemia, unspecified; K21.9 Gastro-esophageal reflux disease without esophagitis; Z79.899 Other long term (current) drug therapy; F17.210 Nicotine dependence, cigarettes, uncomplicated
CPT/HCPCS: 36415; 74177; 80048; 80076; 81001; 82150; 83690; 85025; 87086; 96374; 99284; J1885; Q9967

== ENCOUNTER 2016-09-13 14:07 | Emergency (ER) | payer OTHER ==
--- NOTE | 2016-09-13 14:58 | REP ---
SUPINE ABDOMEN: 09/13/2016 CLINICAL HISTORY: Abdominal pain. COMPARISON: CT abdomen pelvis with contrast 09/05/2016. FINDINGS: Left-sided pelvic surgical clips and bilateral herniorrhaphy noted and seen on the previous CT last week. Gas pattern is nonspecific. There is scattered stool and gas but no dilated loops or masses. No abnormal calcifications over the renal fossae, expected course of the ureters or bladder. Minor degenerative changes spine and hips. Bones without destructive lesion. IMPRESSION: 1. Some postoperative changes from prior bilateral inguinal herniorrhaphy and left pelvic surgical clips stable from last weeks' exam. 2. No acute finding with the gas pattern normal and no bony destructive lesions or abnormal calcifications. Signed by Isaiah Rizvi MD 09/13/2016 07:37 P
--- NOTE | 2016-09-13 15:37 | EDDOCDS ---
Nurse's Notes [facility] Name: Joel Pablo Age: 55 yrs Sex: Male : 1960 Arrival Date: 09/13/2016 Time: 14:07 Bed 5 Private MD: Martha Tan E. Diagnosis: Generalized abdominal pain-resolved Presentation: 09/13 14:10 Presenting complaint: EMS states: epigastric pain and sweating awakened him up at 0300. srm seen here and dx with colitis on the . just finished antibiotics. vomited x1 this am. Adult Sepsis Screening: The patient does not have new or worsening altered mentation. Systolic blood pressure is greater than 100. Patient has a qSOFA score of 0- Negative Sepsis Screen. Suicide/Homicide risk assessment- the patient denies having any suicidal and/or homicidal ideations and does not present with any other emotional, behavioral or mental health complaints. Status: Patient is not a equipment service lead or dependent. Transition of care: patient was not received from another setting of care. 14:10 Method Of Arrival: Ambulance [facility] 14:10 Acuity: BERE Level 3 [facility] 14:16 Care prior to arrival: IV initiated. Saline lock initiated. 20 LAC. [facility] Triage Assessment: 14:13 General: Appears in no apparent distress, Behavior is appropriate for age, cooperative. srm Pain: Pain currently is 5 out of 10 on a pain scale. HIV screening NA for this visit Offered previously. The patient is triaged at the bedside. See Assessment in Nurses Notes section of ED record. Cardiovascular: Heart tones present. Respiratory: Airway is patent Respiratory effort is even, unlabored, Breath sounds are clear bilaterally. GI: Reports upper abdominal pain. Derm: Skin is intact, Skin is dry, Skin is pink, warm & dry. Historical: - Allergies: no known allergies; - Home Meds: 1. atorvastatin 10 mg oral tab 1 tab nightly 2. duloxetine 30 mg Oral cpDR 1 cap once daily 3. divalproex 500 mg oral TbEC 2 times per day 1 tab in AM 2 tabs in PM 4. losartan 100 mg oral tab 1 tab nightly 5. meloxicam 7.5 mg oral tab 1 tab once daily 6. nortriptyline 25 mg Oral cap 2 caps nightly 7. omeprazole 40 mg Oral cpDR 1 cap once daily - PMHx: Anxiety; Chronic Back pain; Depression; Diverticulosis; GERD; Hypercholesterolemia; Hypertension; - PSHx: Hernia repair- Left inguinal; Hernia repair- Right inguinal; - The history from nurses notes was reviewed: and I agree with what is documented. - Social history: Smoking status: Patient uses tobacco products, current every day smoker. No barriers to communication noted, The patient speaks fluent Turkmen, Speaks appropriately for age. - Family history: Not pertinent. - : The pt / caregiver states he / she is not on anticoagulants. Home medication list is obtained from the patient. - Hospitalizations: : No recent hospitalization is reported. - Exposure Risk Screening:: None identified. - Immunization history:: All immunizations up-to-date. - Social history:: the patient is a non-smoker, the patient does not drink alcohol. Screenin:15 Screening information is obtained from the patient. Fall risk: No risks identified. srm Assistance ADL's: requires no assistance with activities of daily living. Abuse/DV Screen: The patient / caregiver reports he/she is: not in a situation that causes fear, pain or injury. Nutritional screening: No deficits noted. Advance Directives: There is no active DNR order. Advance Directives: Currently, there is no health care proxy. home support is adequate. Assessment: 14:15 General: see trieage note. GI: Abdomen is non- distended Bowel sounds present X 4 srm quads. Abd is soft and non tender X 4 quads. 15:23 Cardiovascular: Rhythm is sinus rhythm. srm 15:33 General: Patient instructed on discharge instructions. Patient asked if there were any jmb questions regarding discharge, patient stated no. IV discontinued per hospital policy. Patient signed discharge instructions. Patient discharged in stable condition. . Vital Signs: 14:16 BP 138 / 88 (auto/); srm 14:17 Pulse 70 MON; Pulse Ox 96% ; srm 14:18 BP 138 / 88; Pulse 72; Resp 18; Temp 97.6(O); Pulse Ox 97% on R/A; Weight 104.33 kg ct3 (R); Height 6 ft. 1 in. (185.42 cm) (R); 14:31 BP 132 / 85 (auto/); srm 14:32 Pulse 76 MON; Pulse Ox 92% ; srm 14:50 BP 147 / 80 (auto/); srm 14:50 Pulse 78 MON; Resp 18; Pulse Ox 96% ; srm 15:01 BP 164 / 77 (auto/); srm 15:01 Pulse 80 MON; Pulse Ox 95% ; srm 15:16 BP 135 / 83 (auto/); srm 15:16 Pulse 74 MON; srm 15:33 BP 128 / 81; Pulse 75; Resp 18; Temp 97.0(O); Pulse Ox 98% on R/A; Pain 0/10; jmb 14:18 Body Mass Index 30.35 (104.33 kg, 185.42 cm) ct3 Vitals: 14:18 Log In Time N/A - ambulance arrival. ct3 ED Course: 14:08 Patient visited by Nikia Copeland PCA. jlf 14:08 Martha Tan is Private Physician. jlf 14:08 Patient visited by Nikia Copeland PCA. jlf 14:08 Patient moved to Waiting jlf 14:09 Noemy Felix RN is Primary Nurse. jlf 14:09 Apolinar Mcgowan MD is Attending Physician. pc 14:09 Patient moved to 5 jlf 14:11 Triage Initiated srm 14:15 The patient / caregiver is instructed regarding the plan of care and ED course. Patient srm has correct armband on for positive identification. Placed in gown. Bed in low position. Call light in reach. retail experience specialist on. Pulse ox on. NIBP on. 14:15 Maintain field IV. Dressing intact. Good blood return noted. Site clean & dry. srm 14:16 Patient visited by Noemy Felix RN. srm 14:18 Patient visited by Candida Serna PCA. ct3 14:19 Patient visited by Candida Serna PCA. ct3 14:24 Patient visited by Apolinar Mcgowan MD. pc 14:40 Patient visited by Candida Serna PCA. ct3 15:23 Diet: Patient given snack. srm 15:24 Patient visited by Noemy Felix RN. srm 15:28 Martha Tan MD is Referral Physician. pc 15:33 Discontinued lock intact, bleeding controlled, pressure dressing applied, No jmb redness/swelling at site. No procedures done that require assistance. Order Results: There are currently no results for this order. Outcome: 15:28 Discharge ordered by Provider. pc 15:33 Discharge Assessment: Patient awake, alert and oriented x 3. No cognitive and/or jmb functional deficits noted. Patient verbalized understanding of disposition instructions. Patient awake and alert. obeys commands, Oriented to person, place and time. Patient verbalized understanding of disposition instructions. Patient has no functional deficits. patient administered narcotics - no. The following High Risk Discharge criteria are identified: None. Discharged to home ambulatory, with significant other. Condition: stable Condition: improved. Discharge instructions given to patient, Instructed on discharge instructions, follow up and referral plans. Demonstrated understanding of instructions, Pt was receptive of discharge instructions/ teaching. No special radiology studies were completed. Property sent home with patient. 15:36 Patient left the ED. [facility] Signatures: Apolinar Mcgowan MD MD pc Michelson, Staci, RN RN srm Taveras, Consuelo, FRONT DESK SUPERVISOR FRONT DESK SUPERVISOR ct3 Hernan Hinojosa RN RN jmb Forney, Jordain, FRONT DESK SUPERVISOR FRONT DESK SUPERVISOR jlf Corrections: (The following items were deleted from the chart) 14:19 14:18 BP 138 / 88; Pulse 72bpm; Resp 18bpm; Pulse Ox 97% RA; ct3 ct3 14:40 14:18 BP 138 / 88; Pulse 72bpm; Resp 18bpm; Pulse Ox 97% RA; 104.33 kg Reported; Height ct3 6 ft. 1 in. Reported; BMI: 30.3; ct3 MTDD
--- NOTE | 2016-09-13 15:37 | EDDOCDS ---
Physician Documentation [facility] Name: Joel Pablo Age: 55 yrs Sex: Male : 1960 Arrival Date: 09/13/2016 Time: 14:07 Bed 5 Private MD: Martha Tan E. Disposition: 09/13 15:26 Critical Care: Critical care not applicable. pc Disposition: 09/13/16 15:28 Discharged to Home/Self Care. Impression: Generalized abdominal pain - resolved. - Condition is Stable. - Discharge Instructions: Abdominal Pain, Adult. - Medication Reconciliation, Local Pharmacy Hours form. - Follow up: Martha Tan MD; When: As previously arranged; Reason: Continuance of care. - Problem is new. - Symptoms are resolved. HPI: 14:24 This 55 yrs old Male presents to ER via Ambulance with complaints of pc Abdominal Pain. 14:24 The history is obtained from the patient. He awoke at 3am with abdominal bloating, pc feeling like he might get sick, broke out into a sweat and the was completely pain free after 2 hours. He has not had any complaints since 5am. His called an ambulance just [employer] because he had pain, 12 hours [employer]. He denies any fevers, chills, Resp or symptoms. He had abdominal pain last week and was seen here, with normal labs and a CT showing sigmoid under distension versus mild colitis. He was diagnosed with noninfectious gastroenteritis but started on Cipro and Flagyl. He has not had any diarrhea, appetite changes. He currently has no complaints at all, except he is hungry and wants to eat. At their worst, the symptoms were moderate. In the emergency department, the symptoms have resolved. 14:31 The patient has experienced similar episodes in the past, a few times. pc Historical: - Allergies: no known allergies; - Home Meds: 1. atorvastatin 10 mg oral tab 1 tab nightly 2. duloxetine 30 mg Oral cpDR 1 cap once daily 3. divalproex 500 mg oral TbEC 2 times per day 1 tab in AM 2 tabs in PM 4. losartan 100 mg oral tab 1 tab nightly 5. meloxicam 7.5 mg oral tab 1 tab once daily 6. nortriptyline 25 mg Oral cap 2 caps nightly 7. omeprazole 40 mg Oral cpDR 1 cap once daily - PMHx: Anxiety; Chronic Back pain; Depression; Diverticulosis; GERD; Hypercholesterolemia; Hypertension; - PSHx: Hernia repair- Left inguinal; Hernia repair- Right inguinal; - The history from nurses notes was reviewed: and I agree with what is documented. - Social history: Smoking status: Patient uses tobacco products, current every day smoker. No barriers to communication noted, The patient speaks fluent Mohawk, Speaks appropriately for age. - Family history: Not pertinent. - : The pt / caregiver states he / she is not on anticoagulants. Home medication list is obtained from the patient. - Hospitalizations: : No recent hospitalization is reported. - Exposure Risk Screening:: None identified. - Immunization history:: All immunizations up-to-date. - Social history:: the patient is a non-smoker, the patient does not drink alcohol. ROS: 14:31 All systems are negative except as listed. pc Exam: 14:31 General Appearance: no acute distress, alert. pc 14:31 EENT: normal eye inspection, ears, nose and throat normal, pharynx normal, mucous membranes moist 14:31 Neck: The exam reveals no acute abnormalities. ROM is normal and painless. No nuchal rigidity is noted.. 14:31 Respiratory: no respiratory distress, normal breath sounds. 14:31 CVS: regular pulse rate, regular rhythm, normal S1 and S2, no murmurs, strong peripheral pulses, normal capillary refill. 14:31 Abdomen: soft, non-tender, no organomegaly, normal bowel sounds. 14:31 Back: normal inspection. 14:31 Skin: skin color is normal, warm, dry. 14:31 Extremities: The extremities have a grossly normal appearance, are non-tender, without acute ROM abnormalities. 14:31 Neuro: oriented x 3, cranial nerves normal as tested, no motor deficits, no sensory deficits. 14:31 Psych: normal mood. Vital Signs: 14:16 BP 138 / 88 (auto/); srm 14:17 Pulse 70 MON; Pulse Ox 96% ; srm 14:18 BP 138 / 88; Pulse 72; Resp 18; Temp 97.6(O); Pulse Ox 97% on R/A; Weight 104.33 kg / ct3 230.01 lbs (R); Height 6 ft. 1 in. (185.42 cm) (R); 14:31 BP 132 / 85 (auto/); srm 14:32 Pulse 76 MON; Pulse Ox 92% ; srm 14:50 BP 147 / 80 (auto/); srm 14:50 Pulse 78 MON; Resp 18; Pulse Ox 96% ; srm 15:01 BP 164 / 77 (auto/); srm 15:01 Pulse 80 MON; Pulse Ox 95% ; srm 15:16 BP 135 / 83 (auto/); srm 15:16 Pulse 74 MON; srm 15:33 BP 128 / 81; Pulse 75; Resp 18; Temp 97.0(O); Pulse Ox 98% on R/A; Pain 0/10; jmb 14:18 Body Mass Index 30.35 (104.33 kg, 185.42 cm) ct3 MDM: 14:10 ECG WITH READING ER PHYS+CARDIAG ordered. EDMS 14:26 KUB Ordered. EDMS 14:31 Differential Diagnosis: abdominal pain, resolved;. Plan: KUB, food. pc 14:37 Test interpretation: EKG. pc 15:26 Data reviewed: old medical records, vital signs, nurses notes, all radiology studies pc and available results. Test interpretation: X-RAY - interpreted by Radiologist and personally reviewed, KUB; no acute disease. The patient has been re-examined and re-evaluated. The clinical presentation did not require any ED treatment or interventions. Disposition: The historical points, examination findings, and any diagnostic results supporting the provided diagnosis, were discussed with the patient or legal guardian. The need for outpatient follow up with the provider listed on their discharge instructions was discussed. They were encouraged to return to [facility], or the nearest ED, if symptoms worsen/persist, or for any other questions/concerns. EC:37 Rate is 71 beats/min. Rhythm is regular, Normal Sinus Rhythm. QRS [place] is Normal. HI pc interval is normal. QRS interval is normal. QT interval is normal. No Q waves. T waves are Normal. No ST changes noted. Clinical impression: Normal Sinus Rhythm and Incomplete RBBB. No change from previous ECG in October,. Signatures: Dispatcher [employer] EDApolinar Pascual MD MD pc Michelson, Staci, RN RN srm Becker, Joshua, RN RN jmb MTDD
--- NOTE | 2016-09-14 20:41 | ECGEPIP ---
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
--- NOTE | 2016-09-15 16:37 | EDDOCDS ---
Physician Documentation [facility] Name: Joel Pablo Age: 55 yrs Sex: Male : 1960 Arrival Date: 09/13/2016 Time: 14:07 Bed 5 Private MD: Martha Tan E. Disposition: 09/13 15:26 Critical Care: Critical care not applicable. pc Disposition: 09/13/16 15:28 Discharged to Home/Self Care. Impression: Generalized abdominal pain - resolved. - Condition is Stable. - Discharge Instructions: Abdominal Pain, Adult. - Medication Reconciliation, Local Pharmacy Hours form. - Follow up: Martha Tan MD; When: As previously arranged; Reason: Continuance of care. - Problem is new. - Symptoms are resolved. HPI: 14:24 This 55 yrs old Male presents to ER via Ambulance with complaints of pc Abdominal Pain. 14:24 The history is obtained from the patient. He awoke at 3am with abdominal bloating, pc feeling like he might get sick, broke out into a sweat and the was completely pain free after 2 hours. He has not had any complaints since 5am. His called an ambulance just [employer] because he had pain, 12 hours [employer]. He denies any fevers, chills, Resp or symptoms. He had abdominal pain last week and was seen here, with normal labs and a CT showing sigmoid under distension versus mild colitis. He was diagnosed with noninfectious gastroenteritis but started on Cipro and Flagyl. He has not had any diarrhea, appetite changes. He currently has no complaints at all, except he is hungry and wants to eat. At their worst, the symptoms were moderate. In the emergency department, the symptoms have resolved. 14:31 The patient has experienced similar episodes in the past, a few times. pc Historical: - Allergies: no known allergies; - Home Meds: 1. atorvastatin 10 mg oral tab 1 tab nightly 2. duloxetine 30 mg Oral cpDR 1 cap once daily 3. divalproex 500 mg oral TbEC 2 times per day 1 tab in AM 2 tabs in PM 4. losartan 100 mg oral tab 1 tab nightly 5. meloxicam 7.5 mg oral tab 1 tab once daily 6. nortriptyline 25 mg Oral cap 2 caps nightly 7. omeprazole 40 mg Oral cpDR 1 cap once daily - PMHx: Anxiety; Chronic Back pain; Depression; Diverticulosis; GERD; Hypercholesterolemia; Hypertension; - PSHx: Hernia repair- Left inguinal; Hernia repair- Right inguinal; - The history from nurses notes was reviewed: and I agree with what is documented. - Social history: Smoking status: Patient uses tobacco products, current every day smoker. No barriers to communication noted, The patient speaks fluent Lithuanian, Speaks appropriately for age. - Family history: Not pertinent. - : The pt / caregiver states he / she is not on anticoagulants. Home medication list is obtained from the patient. - Hospitalizations: : No recent hospitalization is reported. - Exposure Risk Screening:: None identified. - Immunization history:: All immunizations up-to-date. - Social history:: the patient is a non-smoker, the patient does not drink alcohol. ROS: 14:31 All systems are negative except as listed. pc Exam: 14:31 General Appearance: no acute distress, alert. pc 14:31 EENT: normal eye inspection, ears, nose and throat normal, pharynx normal, mucous membranes moist 14:31 Neck: The exam reveals no acute abnormalities. ROM is normal and painless. No nuchal rigidity is noted.. 14:31 Respiratory: no respiratory distress, normal breath sounds. 14:31 CVS: regular pulse rate, regular rhythm, normal S1 and S2, no murmurs, strong peripheral pulses, normal capillary refill. 14:31 Abdomen: soft, non-tender, no organomegaly, normal bowel sounds. 14:31 Back: normal inspection. 14:31 Skin: skin color is normal, warm, dry. 14:31 Extremities: The extremities have a grossly normal appearance, are non-tender, without acute ROM abnormalities. 14:31 Neuro: oriented x 3, cranial nerves normal as tested, no motor deficits, no sensory deficits. 14:31 Psych: normal mood. Vital Signs: 14:16 BP 138 / 88 (auto/); srm 14:17 Pulse 70 MON; Pulse Ox 96% ; srm 14:18 BP 138 / 88; Pulse 72; Resp 18; Temp 97.6(O); Pulse Ox 97% on R/A; Weight 104.33 kg / ct3 230.01 lbs (R); Height 6 ft. 1 in. (185.42 cm) (R); 14:31 BP 132 / 85 (auto/); srm 14:32 Pulse 76 MON; Pulse Ox 92% ; srm 14:50 BP 147 / 80 (auto/); srm 14:50 Pulse 78 MON; Resp 18; Pulse Ox 96% ; srm 15:01 BP 164 / 77 (auto/); srm 15:01 Pulse 80 MON; Pulse Ox 95% ; srm 15:16 BP 135 / 83 (auto/); srm 15:16 Pulse 74 MON; srm 15:33 BP 128 / 81; Pulse 75; Resp 18; Temp 97.0(O); Pulse Ox 98% on R/A; Pain 0/10; jmb 15:41 BP 165 / 92; Pulse 120; Resp 18; Temp 97.7(TE); Pulse Ox 98% on R/A; lr2 14:18 Body Mass Index 30.35 (104.33 kg, 185.42 cm) ct3 MDM: 14:10 ECG WITH READING ER PHYS+CARDIAG ordered. EDMS 14:26 KUB Ordered. EDMS 14:31 Differential Diagnosis: abdominal pain, resolved;. Plan: KUB, food. pc 14:37 Test interpretation: EKG. pc 15:26 Data reviewed: old medical records, vital signs, nurses notes, all radiology studies pc and available results. Test interpretation: X-RAY - interpreted by Radiologist and personally reviewed, ALESSIA; no acute disease. The patient has been re-examined and re-evaluated. The clinical presentation did not require any ED treatment or interventions. Disposition: The historical points, examination findings, and any diagnostic results supporting the provided diagnosis, were discussed with the patient or legal guardian. The need for outpatient follow up with the provider listed on their discharge instructions was discussed. They were encouraged to return to [facility], or the nearest ED, if symptoms worsen/persist, or for any other questions/concerns. 09/14 11:43 ECG/EKG was scanned into Whatever and attached to record. gb 11:44 Trend VS was scanned into Whatever and attached to record. gb 11:44 Rhythm Strip was scanned into Whatever and attached to record. gb EC/30 14:37 Rate is 71 beats/min. Rhythm is regular, Normal Sinus Rhythm. QRS [place] is Normal. [place] pc interval is normal. QRS interval is normal. QT interval is normal. No Q waves. T waves are Normal. No ST changes noted. Clinical impression: Normal Sinus Rhythm and Incomplete RBBB. No change from previous ECG in October,. Signatures: Dispatcher [employer] EDMS Apolinar Mcgowan MD MD pc Michelson, Staci, RN RN srm Barnhardt, Gloria, Reg Reg gb Becker, Joshua, RN RN jmb The chart was reviewed and I authenticate all verbal orders and agree with the evaluation and treatment provided.Attachments: 09/14 11:43 ECG/EKG Chart Complete MTDD
--- NOTE | 2016-09-15 16:37 | EDDOCDS ---
Nurse's Notes [facility] Name: Osmany Holder Age: 55 yrs Sex: Male : 1960 Arrival Date: 09/13/2016 Time: 14:07 Bed 5 Private MD: Martha Tan E. Diagnosis: Generalized abdominal pain-resolved Presentation: 09/13 14:10 Presenting complaint: EMS states: epigastric pain and sweating awakened him up at 0300. srm seen here and dx with colitis on the . just finished antibiotics. vomited x1 this am. Adult Sepsis Screening: The patient does not have new or worsening altered mentation. Systolic blood pressure is greater than 100. Patient has a qSOFA score of 0- Negative Sepsis Screen. Suicide/Homicide risk assessment- the patient denies having any suicidal and/or homicidal ideations and does not present with any other emotional, behavioral or mental health complaints. 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 Transition of care: patient was not received from another setting of care. 14:10 Method Of Arrival: Ambulance [facility] 14:10 Acuity: BERE Level 3 [facility] 14:16 Care prior to arrival: IV initiated. Saline lock initiated. 20 LAC. [facility] Triage Assessment: 14:13 General: Appears in no apparent distress, Behavior is appropriate for age, cooperative. srm Pain: Pain currently is 5 out of 10 on a pain scale. HIV screening NA for this visit Offered previously. The patient is triaged at the bedside. See Assessment in Nurses Notes section of ED record. Cardiovascular: Heart tones present. Respiratory: Airway is patent Respiratory effort is even, unlabored, Breath sounds are clear bilaterally. GI: Reports upper abdominal pain. Derm: Skin is intact, Skin is dry, Skin is pink, warm & dry. Historical: - Allergies: no known allergies; - Home Meds: 1. atorvastatin 10 mg oral tab 1 tab nightly 2. duloxetine 30 mg Oral cpDR 1 cap once daily 3. divalproex 500 mg oral TbEC 2 times per day 1 tab in AM 2 tabs in PM 4. losartan 100 mg oral tab 1 tab nightly 5. meloxicam 7.5 mg oral tab 1 tab once daily 6. nortriptyline 25 mg Oral cap 2 caps nightly 7. omeprazole 40 mg Oral cpDR 1 cap once daily - PMHx: Anxiety; Chronic Back pain; Depression; Diverticulosis; GERD; Hypercholesterolemia; Hypertension; - PSHx: Hernia repair- Left inguinal; Hernia repair- Right inguinal; - The history from nurses notes was reviewed: and I agree with what is documented. - Social history: Smoking status: Patient uses tobacco products, current every day smoker. No barriers to communication noted, The patient speaks fluent Telugu, Speaks appropriately for age. - Family history: Not pertinent. - : The pt / caregiver states he / she is not on anticoagulants. Home medication list is obtained from the patient. - Hospitalizations: : No recent hospitalization is reported. - Exposure Risk Screening:: None identified. - Immunization history:: All immunizations up-to-date. - Social history:: the patient is a non-smoker, the patient does not drink alcohol. Screenin:15 Screening information is obtained from the patient. Fall risk: No risks identified. srm Assistance ADL's: requires no assistance with activities of daily living. Abuse/DV Screen: The patient / caregiver reports he/she is: not in a situation that causes fear, pain or injury. Nutritional screening: No deficits noted. Advance Directives: There is no active DNR order. Advance Directives: Currently, there is no health care proxy. home support is adequate. Assessment: 14:15 General: see trieage note. GI: Abdomen is non- distended Bowel sounds present X 4 srm quads. Abd is soft and non tender X 4 quads. 15:23 Cardiovascular: Rhythm is sinus rhythm. srm 15:33 General: Patient instructed on discharge instructions. Patient asked if there were any jmb questions regarding discharge, patient stated no. IV discontinued per hospital policy. Patient signed discharge instructions. Patient discharged in stable condition. . Vital Signs: 14:16 BP 138 / 88 (auto/); srm 14:17 Pulse 70 MON; Pulse Ox 96% ; srm 14:18 BP 138 / 88; Pulse 72; Resp 18; Temp 97.6(O); Pulse Ox 97% on R/A; Weight 104.33 kg ct3 (R); Height 6 ft. 1 in. (185.42 cm) (R); 14:31 BP 132 / 85 (auto/); srm 14:32 Pulse 76 MON; Pulse Ox 92% ; srm 14:50 BP 147 / 80 (auto/); srm 14:50 Pulse 78 MON; Resp 18; Pulse Ox 96% ; srm 15:01 BP 164 / 77 (auto/); srm 15:01 Pulse 80 MON; Pulse Ox 95% ; srm 15:16 BP 135 / 83 (auto/); srm 15:16 Pulse 74 MON; srm 15:33 BP 128 / 81; Pulse 75; Resp 18; Temp 97.0(O); Pulse Ox 98% on R/A; Pain 0/10; jmb 15:41 BP 165 / 92; Pulse 120; Resp 18; Temp 97.7(TE); Pulse Ox 98% on R/A; lr2 14:18 Body Mass Index 30.35 (104.33 kg, 185.42 cm) ct3 Vitals: 14:18 Log In Time N/A - ambulance arrival. ct3 ED Course: 14:08 Patient visited by Nikia Copeland PCA. jlf 14:08 Martha Tan is Private Physician. jlf 14:08 Patient visited by Nikia Copeland PCA. jlf 14:08 Patient moved to Waiting jlf 14:09 Noemy Felix RN is Primary Nurse. jlf 14:09 Apolinar Mcgowan MD is Attending Physician. pc 14:09 Patient moved to jlf 14:11 Triage Initiated srm 14:15 The patient / caregiver is instructed regarding the plan of care and ED course. Patient srm has correct armband on for positive identification. Placed in gown. Bed in low position. Call light in reach. case monitor on. Pulse ox on. NIBP on. 14:15 Maintain field IV. Dressing intact. Good blood return noted. Site clean & dry. srm 14:16 Patient visited by Noemy Felix RN. srm 14:18 Patient visited by Candida Serna PCA. ct3 14:19 Patient visited by Candida Serna PCA. ct3 14:24 Patient visited by Apolinar Mcgowan MD. pc 14:40 Patient visited by Candida Srena PCA. ct3 15:23 Diet: Patient given snack. srm 15:24 Patient visited by Noemy Felix RN. srm 15:28 Martha Tan MD is Referral Physician. pc 15:33 Discontinued lock intact, bleeding controlled, pressure dressing applied, No jmb redness/swelling at site. No procedures done that require assistance. 15:37 KUB Returned. EDMS 09/14 11:43 ECG/EKG was scanned into [employer] and attached to record. gb 11:44 Trend VS was scanned into [employer] and attached to record. gb 11:44 Rhythm Strip was scanned into [employer] and attached to record. gb 21:22 EKG-ADULT Returned. 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; : 1960 Requested By: Apolinar Downey; Order Number: [id number] Reading MD: Santa Santiago; Measurements; Intervals [place]; Rate: 71 P: 20; AR: 148 QRS: 26; QRSD: 109 T: 21; QT: 381; QTc: 415; Interpretive Statements; SINUS RHYTHM; INCOMPLETE RIGHT BUNDLE BRANCH BLOCK; DECREASED RATE 11/12/15; Electronically Signed On 09-14-2016 20:41:27 EST by Santa Santiago; Radiology Order: KUB Test: KUB REASON FOR EXAMINATION: Abdomen Pain; SUPINE ABDOMEN: 09/13/2016; ; CLINICAL HISTORY: Abdominal pain.; ; COMPARISON: CT abdomen pelvis with contrast 09/05/2016.; ; FINDINGS: Left-sided pelvic surgical clips and bilateral herniorrhaphy noted and; seen on the previous CT last week. Gas pattern is nonspecific. There is; scattered stool and gas but no dilated loops or masses. No abnormal; calcifications over the renal fossae, expected course of the ureters or bladder.; Minor degenerative changes spine and hips. Bones without destructive lesion.; ; IMPRESSION:; ; 1. Some postoperative changes from prior bilateral inguinal herniorrhaphy and; left pelvic surgical clips stable from last weeks' exam.; ; 2. No acute finding with the gas pattern normal and no bony destructive lesions; or abnormal calcifications.; ; ; Signed by; Isaiah Rizvi MD 09/13/2016 07:37 P; Outcome: 09/13 15:28 Discharge ordered by Provider. pc 15:33 Discharge Assessment: Patient awake, alert and oriented x 3. No cognitive and/or jmb functional deficits noted. Patient verbalized understanding of disposition instructions. Patient awake and alert. obeys commands, Oriented to person, place and time. Patient verbalized understanding of disposition instructions. Patient has no functional deficits. patient administered narcotics - no. The following High Risk Discharge criteria are identified: None. Discharged to home ambulatory, with significant other. Condition: stable Condition: improved. Discharge instructions given to patient, Instructed on discharge instructions, follow up and referral plans. Demonstrated understanding of instructions, Pt was receptive of discharge instructions/ teaching. No special radiology studies were completed. Property sent home with patient. 15:36 Patient left the ED. tereso Signatures: Dispatcher [employer] EDMS Apolianr Mcgowan MD MD pc Michelson, Staci, RN RN Melinda Chaidez, Reg Reg gb Serna, Candida, HOME APPLIANCE INSTALLER HOME APPLIANCE INSTALLER ct3 Hernan Hinojosa RN RN jmb Forney, Jordain, HOME APPLIANCE INSTALLER HOME APPLIANCE INSTALLER jlf Bouchra Ventura lr2 Corrections: (The following items were deleted from the chart) 14:19 14:18 BP 138 / 88; Pulse 72bpm; Resp 18bpm; Pulse Ox 97% RA; ct3 ct3 14:40 14:18 BP 138 / 88; Pulse 72bpm; Resp 18bpm; Pulse Ox 97% RA; 104.33 kg Reported; Height ct3 6 ft. 1 in. Reported; BMI: 30.3; ct3 Chart Complete MTDD
--- NOTE | 2016-09-15 16:37 | EDDOCDS ---
Physician Documentation [facility] Name: Joel Pablo Age: 55 yrs Sex: Male : 1960 Arrival Date: 09/13/2016 Time: 14:07 Bed 5 Private MD: Martha Tan E. Disposition: 09/13 15:26 Critical Care: Critical care not applicable. pc Disposition: 09/13/16 15:28 Discharged to Home/Self Care. Impression: Generalized abdominal pain - resolved. - Condition is Stable. - Discharge Instructions: Abdominal Pain, Adult. - Medication Reconciliation, Local Pharmacy Hours form. - Follow up: Martha Tan MD; When: As previously arranged; Reason: Continuance of care. - Problem is new. - Symptoms are resolved. HPI: 14:24 This 55 yrs old Male presents to ER via Ambulance with complaints of pc Abdominal Pain. 14:24 The history is obtained from the patient. He awoke at 3am with abdominal bloating, pc feeling like he might get sick, broke out into a sweat and the was completely pain free after 2 hours. He has not had any complaints since 5am. 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 He denies any fevers, chills, Resp or symptoms. He had abdominal pain last week and was seen here, with normal labs and a CT showing sigmoid under distension versus mild colitis. He was diagnosed with noninfectious gastroenteritis but started on Cipro and Flagyl. He has not had any diarrhea, appetite changes. He currently has no complaints at all, except he is hungry and wants to eat. At their worst, the symptoms were moderate. In the emergency department, the symptoms have resolved. 14:31 The patient has experienced similar episodes in the past, a few times. pc Historical: - Allergies: no known allergies; - Home Meds: 1. atorvastatin 10 mg oral tab 1 tab nightly 2. duloxetine 30 mg Oral cpDR 1 cap once daily 3. divalproex 500 mg oral TbEC 2 times per day 1 tab in AM 2 tabs in PM 4. losartan 100 mg oral tab 1 tab nightly 5. meloxicam 7.5 mg oral tab 1 tab once daily 6. nortriptyline 25 mg Oral cap 2 caps nightly 7. omeprazole 40 mg Oral cpDR 1 cap once daily - PMHx: Anxiety; Chronic Back pain; Depression; Diverticulosis; GERD; Hypercholesterolemia; Hypertension; - PSHx: Hernia repair- Left inguinal; Hernia repair- Right inguinal; - The history from nurses notes was reviewed: and I agree with what is documented. - Social history: Smoking status: Patient uses tobacco products, current every day smoker. No barriers to communication noted, The patient speaks fluent Maltese, Speaks appropriately for age. - Family history: Not pertinent. - : The pt / caregiver states he / she is not on anticoagulants. Home medication list is obtained from the patient. - Hospitalizations: : No recent hospitalization is reported. - Exposure Risk Screening:: None identified. - Immunization history:: All immunizations up-to-date. - Social history:: the patient is a non-smoker, the patient does not drink alcohol. ROS: 14:31 All systems are negative except as listed. pc Exam: 14:31 General Appearance: no acute distress, alert. pc 14:31 EENT: normal eye inspection, ears, nose and throat normal, pharynx normal, mucous membranes moist 14:31 Neck: The exam reveals no acute abnormalities. ROM is normal and painless. No nuchal rigidity is noted.. 14:31 Respiratory: no respiratory distress, normal breath sounds. 14:31 CVS: regular pulse rate, regular rhythm, normal S1 and S2, no murmurs, strong peripheral pulses, normal capillary refill. 14:31 Abdomen: soft, non-tender, no organomegaly, normal bowel sounds. 14:31 Back: normal inspection. 14:31 Skin: skin color is normal, warm, dry. 14:31 Extremities: The extremities have a grossly normal appearance, are non-tender, without acute ROM abnormalities. 14:31 Neuro: oriented x 3, cranial nerves normal as tested, no motor deficits, no sensory deficits. 14:31 Psych: normal mood. Vital Signs: 14:16 BP 138 / 88 (auto/); srm 14:17 Pulse 70 MON; Pulse Ox 96% ; srm 14:18 BP 138 / 88; Pulse 72; Resp 18; Temp 97.6(O); Pulse Ox 97% on R/A; Weight 104.33 kg / ct3 230.01 lbs (R); Height 6 ft. 1 in. (185.42 cm) (R); 14:31 BP 132 / 85 (auto/); srm 14:32 Pulse 76 MON; Pulse Ox 92% ; srm 14:50 BP 147 / 80 (auto/); srm 14:50 Pulse 78 MON; Resp 18; Pulse Ox 96% ; srm 15:01 BP 164 / 77 (auto/); srm 15:01 Pulse 80 MON; Pulse Ox 95% ; srm 15:16 BP 135 / 83 (auto/); srm 15:16 Pulse 74 MON; srm 15:33 BP 128 / 81; Pulse 75; Resp 18; Temp 97.0(O); Pulse Ox 98% on R/A; Pain 0/10; jmb 15:41 BP 165 / 92; Pulse 120; Resp 18; Temp 97.7(TE); Pulse Ox 98% on R/A; lr2 14:18 Body Mass Index 30.35 (104.33 kg, 185.42 cm) ct3 MDM: 14:10 ECG WITH READING ER PHYS+CARDIAG ordered. EDMS 14:26 KUB Ordered. EDMS 14:31 Differential Diagnosis: abdominal pain, resolved;. Plan: KUB, food. pc 14:37 Test interpretation: EKG. pc 15:26 Data reviewed: old medical records, vital signs, nurses notes, all radiology studies pc and available results. Test interpretation: X-RAY - interpreted by Radiologist and personally reviewed, ALESSIA; no acute disease. The patient has been re-examined and re-evaluated. The clinical presentation did not require any ED treatment or interventions. Disposition: The historical points, examination findings, and any diagnostic results supporting the provided diagnosis, were discussed with the patient or legal guardian. The need for outpatient follow up with the provider listed on their discharge instructions was discussed. They were encouraged to return to [facility], or the nearest ED, if symptoms worsen/persist, or for any other questions/concerns. 09/14 11:43 ECG/EKG was scanned into [employer] and attached to record. gb 11:44 Trend VS was scanned into [employer] and attached to record. gb 11:44 Rhythm Strip was scanned into [employer] and attached to record. gb EC/30 14:37 Rate is 71 beats/min. Rhythm is regular, Normal Sinus Rhythm. QRS [place] is Normal. [place] pc interval is normal. QRS interval is normal. QT interval is normal. No Q waves. T waves are Normal. No ST changes noted. Clinical impression: Normal Sinus Rhythm and Incomplete RBBB. No change from previous ECG in October,. Signatures: Dispatcher [employer] EDMS Apolinar Mcgowan MD MD pc Michelson, Staci, RN RN srm Barnhardt, Gloria, Reg Reg gb Becker, Joshua, RN RN jmb The chart was reviewed and I authenticate all verbal orders and agree with the evaluation and treatment provided.Attachments: 09/14 11:43 ECG/EKG Chart Complete MTDD
== END 2016-09-13 15:36 | disposition home or self-care (01) ==
LOC: M ED 14:07
DX: R10.84 Generalized abdominal pain (principal); G89.29 Other chronic pain; K21.9 Gastro-esophageal reflux disease without esophagitis; F41.9 Anxiety disorder, unspecified; F32.9 Major depressive disorder, single episode, unspecified; E78.00 Pure hypercholesterolemia, unspecified; I10 Essential (primary) hypertension; F17.200 Nicotine dependence, unspecified, uncomplicated; Z79.899 Other long term (current) drug therapy

== ENCOUNTER → 2016-09-21 | Outpatient (REF) | payer OTHER ==
[2016-09-21 20:53] LABS: BLOOD UREA NITROGEN 6 MG/DL (7-18); CREATININE FOR GFR 0.87 MG/DL (0.70-1.30); GLOMERULAR FILTRATION RATE > 60.0 (>56); GLUCOSE, FASTING 92 MG/DL (70-105)
[2016-09-21 20:54] LABS: ALKALINE PHOSPHATASE 58 U/L (45-117); ALT/SGPT 38 U/L (12-78); ANION GAP 8 MEQ/L (8-16); AST/SGOT 22 U/L (15-37); BILIRUBIN,TOTAL 0.3 MG/DL (0.2-1.0); CALCIUM LEVEL 9.2 MG/DL (8.5-10.1); CARBON DIOXIDE LEVEL 32 MEQ/L (21-32); CHLORIDE LEVEL 104 MEQ/L (98-107); CHOLESTEROL LEVEL 200 MG/DL (<200); SODIUM LEVEL 144 MEQ/L (136-145); TOTAL PROTEIN 6.6 GM/DL (6.4-8.2); TRIGLYCERIDES LEVEL 281 MG/DL (<150)
[2016-09-21 20:55] LABS: ALBUMIN 3.8 GM/DL (3.2-5.2); ALBUMIN/GLOBULIN RATIO 1.36 (1.00-1.93); FREE T4 0.97 NG/DL (0.76-1.46)
== END ==
LOC: M SFHCPLAZ 09:26
PROVIDERS: ATTEND Nurse Practitioner Family
DX: I10 Essential (primary) hypertension (principal); E78.5 Hyperlipidemia, unspecified; E55.9 Vitamin D deficiency, unspecified

== ENCOUNTER 2016-09-25 18:09 | Emergency (ER) | payer OTHER ==
[2016-09-25] MEDS ORDERED: NORCO, ANEXSIA 5/325MG TABLET (HYDROcodone/ACETAMINOPHEN) As Ordered ONE (18:52)
[2016-09-25] MEDS ORDERED: METHOCARBAMOL 500 MG TAB As Ordered ONE (18:53)
[2016-09-25] MEDS ORDERED: NORCO 5/325MG TABLET (BULK) As Ordered ONE (19:58)
--- NOTE | 2016-09-25 20:13 | EDDOCDS ---
Nurse's Notes [facility] Name: Joel Pablo Age: 55 yrs Sex: Male : 1960 Arrival Date: 09/25/2016 Time: 18:09 Bed TR6 Private MD: Lakisha Calles M. Diagnosis: Low back pain Presentation: 09/25 18:12 Presenting complaint: Patient states: Left hip pain radiating to lower back since rs3 yesterday. started after he helped his friend with wheelchair. has no relief with Motrin, ice and lidocaine patch. Acute neurological deficits are not present. Mechanism of Injury: No Mechanism of Injury. Adult Sepsis Screening: The patient does not have new or worsening altered mentation. Patient's respiratory rate is less than 22. Systolic blood pressure is greater than 100. Patient has a qSOFA score of 0- Negative Sepsis Screen. Suicide/Homicide risk assessment- the patient denies having any suicidal and/or homicidal ideations and does not present with any other emotional, behavioral or mental health complaints. 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 Transition of care: patient was not received from another setting of care. 18:12 Acuity: BERE Level 4 rs3 18:12 Method Of Arrival: Walkin/Carried/Asstd rs3 Triage Assessment: 18:16 General: Appears in no apparent distress. Pain: Location: lumbar area. HIV screening NA rs3 for this visit Offered previously. Musculoskeletal: Reports Pain is 7 out of 10 on a pain scale. Historical: - Allergies: no known allergies; - Home Meds: 1. atorvastatin 10 mg oral tab 1 tab nightly 2. divalproex 500 mg oral TbEC 2 times per day 1 tab in AM 2 tabs in PM 3. duloxetine 30 mg Oral cpDR 1 cap once daily 4. losartan 100 mg oral tab 1 tab nightly 5. meloxicam 7.5 mg oral tab 1 tab once daily 6. nortriptyline 25 mg Oral cap 2 caps nightly 7. omeprazole 40 mg Oral cpDR 1 cap once daily - PMHx: Anxiety; Chronic Back pain; Depression; Diverticulosis; GERD; Hypercholesterolemia; Hypertension; - PSHx: Hernia repair- Left inguinal; Hernia repair- Right inguinal; - Social history: Smoking status: Patient uses tobacco products, light tobacco smoker. No barriers to communication noted, The patient speaks fluent Czech. - Family history: Not pertinent. - : The pt / caregiver states he / she is not on anticoagulants. Home medication list is obtained from the patient. - Exposure Risk Screening:: None identified. Screenin:57 Screening information is obtained from the patient. Fall risk: No risks identified. ck1 Assistance ADL's: requires no assistance with activities of daily living. Abuse/DV Screen: The patient / caregiver reports he/she is: not in a situation that causes fear, pain or injury. Nutritional screening: No deficits noted. Advance Directives: Currently, there is no health care proxy. home support is adequate. Assessment: 18:56 General: Appears in no apparent distress, comfortable, Behavior is appropriate for age, ck1 cooperative. Pain: Location: lumbar area Pain currently is 9 out of 10 on a pain scale. : Denies burning with urination, inability to void. Derm: Skin is intact, is healthy with good turgor, Skin is pink, warm & dry. 20:00 Reassessment: Patient appears in no apparent distress at this time. Patient states ttb feeling better. Patient states symptoms have improved. pt requests medicaid cab. Called per request. . General: Appears in no apparent distress, Behavior is appropriate for age, cooperative, pleasant. Neurological: Level of Consciousness is awake, alert. Respiratory: No deficits noted. Airway is patent. Vital Signs: 18:10 BP 151 / 76; Pulse 105; Resp 18; Temp 98.2(O); Pulse Ox 98% ; Weight 104.33 kg; Height dem1 6 ft. 1 in. (185.42 cm); Pain 9/10; 20:00 BP 135 / 81; Pulse 88; Resp 18 S; Temp 97.6(O); Pulse Ox 98% on R/A; Pain 8/10; jp4 18:10 Body Mass Index 30.34 (104.33 kg, 185.42 cm) [facility] Vitals: 18:10 Log In Time: September 25, 2016 at 18:09. [facility] ED Course: 18:10 Patient visited by Janiya Singh. [facility] [place] 18:10 Lakisha Calles is Private Physician. dem1 18:10 Patient moved to Waiting dem1 18:11 Patient moved to Pre RCE dem1 18:15 Triage Initiated rs3 18:36 [facility] ck[facility] 18:36 Judy Pino MD is Attending Physician. ck7 18:36 Patient visited by Rosendo Ivey RPA-C. ck7 18:36 Patient moved to Triage 2 jp4 18:56 Patient moved to TR2 ck1 18:58 The patient / caregiver is instructed regarding the plan of care and ED course. ck1 19:12 Patient visited by Rosendo Ivey RPA-C. ck7 19:23 Patient moved to PR1 / 25 [facility] 19:33 [facility] Payment Agreement was scanned into [employer] and attached to record. ks16 19:48 Patient visited by Rosendo Ivey RPA-C. ck7 19:48 Lakisha Calles is Referral Physician. ck7 20:00 Patient visited by Koby Brown. jp4 20:00 No IV's were initiated during this patient's visit. No procedures done that require ttb assistance. 20:01 Patient moved to TR6 rs3 Administered Medications: 18:56 Drug: HYDROcodone-acetaminophen 1 tabs [hydrocodone 5 mg-acetaminophen 325 mg tablet (1 ck1 tabs)] Route: PO; 19:58 Follow up: Response: Confirmed pt not driving. kmg1 18:56 Drug: Methocarbamol 1 grams [methocarbamol 500 mg tablet (2 tabs)] Route: PO; ck1 19:58 Drug: HYDROcodone-acetaminophen 4 pack- 1 packets [hydrocodone 5 mg-acetaminophen 325 kmg1 mg tablet (1 tabs)] {Co-Signature: ttb (Carmela Simons RN).} Route: PO; 19:58 Follow up: Response: Med's dispensed home kmg1 Point of Care Testing: Urine Dip: 19:01 pH: 7.0; ; Specific [place]: 1.010; Ketones: Negative; Glucose: Negative; Protein: mlb1 Negative; Leukocytes: Negative; Nitrite: Negative ; Blood: Negative; Bilirubin: Negative ; Urobilinogen: Normal Ranges: Order Results: There are currently no results for this order. Outcome: 19:48 Discharge ordered by Provider. ck7 20:00 Discharge Assessment: Patient awake, alert and oriented x 3. No cognitive and/or ttb functional deficits noted. Patient verbalized understanding of disposition instructions. Patient awake and alert. patient administered narcotics - yes. Pt provided with safe discharge. The following High Risk Discharge criteria are identified: None. Discharged to home ambulatory. Condition: good Condition: stable Condition: improved. Discharge instructions given to patient, Instructed on discharge instructions, follow up and referral plans. medication usage, no driving heavy equipment, no drinking with medication, Demonstrated understanding of instructions, medications, Pt was receptive of discharge instructions/ teaching. Prescriptions given X 2. No special radiology studies were completed. Property :Personal belongings accompany Pt. 20:12 Patient left the ED. ttb Signatures: Usha Vale, RN RN kmg1 Steve Mason RN RN mlb1 Maryse Argueta,RN RN ck1 Sheyla Thomas,RN RN rs3 Janiya Singh1 Rosendo Ivey, RPA-C RPA-Cck7 Carmela Simons, KEANU COLUNGA ttb Hernan Hinojosa RN RN jmb Stephanie, Koby jp4 Darby Bernal, Reg Reg ks16 Carmela Simons RN ttb MTDD
--- NOTE | 2016-09-25 20:13 | EDDOCDS ---
Physician Documentation [facility] Name: Joel Pablo Age: 55 yrs Sex: Male : 1960 Arrival Date: 09/25/2016 Time: 18:09 Bed TR6 Private MD: Lakisha Calles M. Disposition: 09/25/16 19:48 Discharged to Home/Self Care. Impression: Low back pain. - Condition is Stable. - Discharge Instructions: Back Pain, Adult. - Prescriptions for [place] 5- 325 mg Oral Tablet - take 1 tablet by ORAL route every 6 hours As needed MDD: 4 tabs; 6 tablet. Robaxin 500 mg Oral Tablet - take 2 tablet by ORAL route every 6 hours As needed; 40 tablet. - Medication Reconciliation, Local Pharmacy Hours form. - Follow up: Lakisha Calles; When: 2 - 3 days; Reason: Recheck today's complaints, Continuance of care. - Problem is new. - Symptoms have improved. - Notes: USE MEDICATIONS INSTRUCTED, FOLLOW UP WITH YOUR DOCTOR ON TUESDAY Historical: - Allergies: no known allergies; - Home Meds: 1. atorvastatin 10 mg oral tab 1 tab nightly 2. divalproex 500 mg oral TbEC 2 times per day 1 tab in AM 2 tabs in PM 3. duloxetine 30 mg Oral cpDR 1 cap once daily 4. losartan 100 mg oral tab 1 tab nightly 5. meloxicam 7.5 mg oral tab 1 tab once daily 6. nortriptyline 25 mg Oral cap 2 caps nightly 7. omeprazole 40 mg Oral cpDR 1 cap once daily - PMHx: Anxiety; Chronic Back pain; Depression; Diverticulosis; GERD; Hypercholesterolemia; Hypertension; - PSHx: Hernia repair- Left inguinal; Hernia repair- Right inguinal; - Social history: Smoking status: Patient uses tobacco products, light tobacco smoker. No barriers to communication noted, The patient speaks fluent Sinhala. - Family history: Not pertinent. - : The pt / caregiver states he / she is not on anticoagulants. Home medication list is obtained from the patient. - Exposure Risk Screening:: None identified. Vital Signs: 09/25 18:10 BP 151 / 76; Pulse 105; Resp 18; Temp 98.2(O); Pulse Ox 98% ; Weight 104.33 kg / 230.01 dem1 lbs; Height 6 ft. 1 in. (185.42 cm); Pain 9/10; 20:00 BP 135 / 81; Pulse 88; Resp 18 S; Temp 97.6(O); Pulse Ox 98% on R/A; Pain 8/10; jp4 18:10 Body Mass Index 30.34 (104.33 kg, 185.42 cm) dem1 MDM: 18:51 Urine Dip ordered. ck7 18:51 HYDROcodone-acetaminophen 5 mg-325 mg 1 tabs PO once ordered. ck7 18:51 Methocarbamol 1 grams PO once ordered. ck7 18:51 Spine. Lumbosacral, Complete Ordered. EDMS 19:32 Financial registration complete. ks16 19:33 [facility] Payment Agreement was scanned into [email or web address] and attached to record. ks16 19:49 HYDROcodone-acetaminophen 4 pack- 5 mg-325 mg 1 packets PO Per package directions; ck7 Dispense with patient. 1 po q4h prn for pain ordered. Point of Care Testing: Urine Dip: 19:01 pH: 7.0; ; Specific [place]: 1.010; Ketones: Negative; Glucose: Negative; Protein: mlb1 Negative; Leukocytes: Negative; Nitrite: Negative ; Blood: Negative; Bilirubin: Negative ; Urobilinogen: Normal Ranges: Administered Medications: 18:56 Drug: HYDROcodone-acetaminophen 1 tabs [hydrocodone 5 mg-acetaminophen 325 mg tablet (1 ck1 tabs)] Route: PO; 19:58 Follow up: Response: Confirmed pt not driving. kmg1 18:56 Drug: Methocarbamol 1 grams [methocarbamol 500 mg tablet (2 tabs)] Route: PO; ck1 19:58 Drug: HYDROcodone-acetaminophen 4 pack- 1 packets [hydrocodone 5 mg-acetaminophen 325 kmg1 mg tablet (1 tabs)] {Co-Signature: ttb (Carmela Simons RN).} Route: PO; 19:58 Follow up: Response: Med's dispensed home kmg1 Signatures: Dispatcher [employer] EDMS Sheyla Thomas RN RN rs3 Rosendo Ivey RPA-C RPA-CckCarmela Nicholson RN RN ttb Darby Bernal, Reg Reg ks16 Usha Vale RN kmg1 Maryse Argueta RN ck1 Carmela Simons RN ttb The chart was reviewed and I authenticate all verbal orders and agree with the evaluation and treatment provided.Attachments: 19:33 [facility] Payment Agreement ks16 MTDD
--- NOTE | 2016-09-26 10:59 | REP ---
LUMBAR SPINE COMPLETE: 09/25/2016. Clinical history: Back pain. Comparison: 01/05/2009, MRI lumbar spine 03/12/2016. Findings: Five views provided. The AP view shows pedicles, spinous and transverse processes intact. There is no scoliosis. Sacral ala and foramina intact. SI joints unremarkable. Lower thoracic levels and visualized ribs intact. Oblique images show minor hypertrophic facet change at L4-5 and L5-S1. I do not see spondylolysis or spondylolisthesis. There is degenerative disc change at all levels in the lumbar spine with marginal osteophytes. Most disc show slight loss of height sparing relatively the L3-4 level. No compression deformity. Impression: 1. Degenerative disc and facet arthritic changes as described. No compression fracture or malalignment. No spondylolysis. Signed by Isaiah Rizvi MD 09/26/2016 07:01 P
--- NOTE | 2016-09-27 21:13 | EDDOCDS ---
Physician Documentation [facility] Name: Joel Pablo Age: 55 yrs Sex: Male : 1960 Arrival Date: 09/25/2016 Time: 18:09 Bed TR6 Private MD: Lakisha Calles M. Disposition: 09/25/16 19:48 Discharged to Home/Self Care. Impression: Low back pain. - Condition is Stable. - Discharge Instructions: Back Pain, Adult. - Prescriptions for [place] 5- 325 mg Oral Tablet - take 1 tablet by ORAL route every 6 hours As needed MDD: 4 tabs; 6 tablet. Robaxin 500 mg Oral Tablet - take 2 tablet by ORAL route every 6 hours As needed; 40 tablet. - Medication Reconciliation, Local Pharmacy Hours form. - Follow up: Lakisha Calles; When: 2 - 3 days; Reason: Recheck today's complaints, Continuance of care. - Problem is new. - Symptoms have improved. - Notes: USE MEDICATIONS INSTRUCTED, FOLLOW UP WITH YOUR DOCTOR ON TUESDAY Historical: - Allergies: no known allergies; - Home Meds: 1. atorvastatin 10 mg oral tab 1 tab nightly 2. divalproex 500 mg oral TbEC 2 times per day 1 tab in AM 2 tabs in PM 3. duloxetine 30 mg Oral cpDR 1 cap once daily 4. losartan 100 mg oral tab 1 tab nightly 5. meloxicam 7.5 mg oral tab 1 tab once daily 6. nortriptyline 25 mg Oral cap 2 caps nightly 7. omeprazole 40 mg Oral cpDR 1 cap once daily - PMHx: Anxiety; Chronic Back pain; Depression; Diverticulosis; GERD; Hypercholesterolemia; Hypertension; - PSHx: Hernia repair- Left inguinal; Hernia repair- Right inguinal; - Social history: Smoking status: Patient uses tobacco products, light tobacco smoker. No barriers to communication noted, The patient speaks fluent Kyrgyz. - Family history: Not pertinent. - : The pt / caregiver states he / she is not on anticoagulants. Home medication list is obtained from the patient. - Exposure Risk Screening:: None identified. Vital Signs: 09/25 18:10 BP 151 / 76; Pulse 105; Resp 18; Temp 98.2(O); Pulse Ox 98% ; Weight 104.33 kg / 230.01 dem1 lbs; Height 6 ft. 1 in. (185.42 cm); Pain 9/10; 20:00 BP 135 / 81; Pulse 88; Resp 18 S; Temp 97.6(O); Pulse Ox 98% on R/A; Pain 8/10; jp4 18:10 Body Mass Index 30.34 (104.33 kg, 185.42 cm) dem1 MDM: 18:51 Urine Dip ordered. ck7 18:51 HYDROcodone-acetaminophen 5 mg-325 mg 1 tabs PO once ordered. ck7 18:51 Methocarbamol 1 grams PO once ordered. ck7 18:51 Spine. Lumbosacral, Complete Ordered. EDMS 19:32 Financial registration complete. ks16 19:33 [facility] Payment Agreement was scanned into [employer] and attached to record. ks16 19:49 HYDROcodone-acetaminophen 4 pack- 5 mg-325 mg 1 packets PO Per package directions; ck7 Dispense with patient. 1 po q4h prn for pain ordered. 09/26 22:51 T-Sheet-- Draft Copy was scanned into [employer] and attached to record. klr Point of Care Testing: Urine Dip: 09/25 19:01 pH: 7.0; ; Specific [place]: 1.010; Ketones: Negative; Glucose: Negative; Protein: mlb1 Negative; Leukocytes: Negative; Nitrite: Negative ; Blood: Negative; Bilirubin: Negative ; Urobilinogen: Normal Ranges: Administered Medications: 18:56 Drug: HYDROcodone-acetaminophen 1 tabs [hydrocodone 5 mg-acetaminophen 325 mg tablet (1 ck1 tabs)] Route: PO; 19:58 Follow up: Response: Confirmed pt not driving. kmg1 18:56 Drug: Methocarbamol 1 grams [methocarbamol 500 mg tablet (2 tabs)] Route: PO; ck1 19:58 Drug: HYDROcodone-acetaminophen 4 pack- 1 packets [hydrocodone 5 mg-acetaminophen 325 kmg1 mg tablet (1 tabs)] {Co-Signature: ttb (Carmela Simons RN).} Route: PO; 19:58 Follow up: Response: Med's dispensed home kmg1 Signatures: Dispatcher [employer] EDMS Sheyla Thomas RN RN rs3 Rosendo Ivey, VERA-C RPA-Cck7 Carmela Simons RN RN ttb Darby Bernal Reg Reg ks16 Kaylan Camargo Kelly RN kmg1 Maryse Argueta RN ck1 Carmela Simons RN ttb The chart was reviewed and I authenticate all verbal orders and agree with the evaluation and treatment provided.Attachments: 19:33 [facility] Payment Agreement ks16 09/26 22:51 T-Sheet-- Draft Copy klr Chart Complete MTDD
--- NOTE | 2016-09-27 21:13 | EDDOCDS ---
Nurse's Notes [facility] Name: Joel Pablo Age: 55 yrs Sex: Male : 1960 Arrival Date: 09/25/2016 Time: 18:09 Bed TR6 Private MD: Lakisha Calles M. Diagnosis: Low back pain Presentation: 09/25 18:12 Presenting complaint: Patient states: Left hip pain radiating to lower back since rs3 yesterday. started after he helped his friend with wheelchair. has no relief with Motrin, ice and lidocaine patch. Acute neurological deficits are not present. Mechanism of Injury: No Mechanism of Injury. Adult Sepsis Screening: The patient does not have new or worsening altered mentation. Patient's respiratory rate is less than 22. Systolic blood pressure is greater than 100. Patient has a qSOFA score of 0- Negative Sepsis Screen. Suicide/Homicide risk assessment- the patient denies having any suicidal and/or homicidal ideations and does not present with any other emotional, behavioral or mental health complaints. Status: Patient is not a line servicer or dependent. Transition of care: patient was not received from another setting of care. 18:12 Acuity: BERE Level 4 rs3 18:12 Method Of Arrival: Walkin/Carried/Asstd rs3 Triage Assessment: 18:16 General: Appears in no apparent distress. Pain: Location: lumbar area. HIV screening NA rs3 for this visit Offered previously. Musculoskeletal: Reports Pain is 7 out of 10 on a pain scale. Historical: - Allergies: no known allergies; - Home Meds: 1. atorvastatin 10 mg oral tab 1 tab nightly 2. divalproex 500 mg oral TbEC 2 times per day 1 tab in AM 2 tabs in PM 3. duloxetine 30 mg Oral cpDR 1 cap once daily 4. losartan 100 mg oral tab 1 tab nightly 5. meloxicam 7.5 mg oral tab 1 tab once daily 6. nortriptyline 25 mg Oral cap 2 caps nightly 7. omeprazole 40 mg Oral cpDR 1 cap once daily - PMHx: Anxiety; Chronic Back pain; Depression; Diverticulosis; GERD; Hypercholesterolemia; Hypertension; - PSHx: Hernia repair- Left inguinal; Hernia repair- Right inguinal; - Social history: Smoking status: Patient uses tobacco products, light tobacco smoker. No barriers to communication noted, The patient speaks fluent Divehi. - Family history: Not pertinent. - : The pt / caregiver states he / she is not on anticoagulants. Home medication list is obtained from the patient. - Exposure Risk Screening:: None identified. Screenin:57 Screening information is obtained from the patient. Fall risk: No risks identified. ck1 Assistance ADL's: requires no assistance with activities of daily living. Abuse/DV Screen: The patient / caregiver reports he/she is: not in a situation that causes fear, pain or injury. Nutritional screening: No deficits noted. Advance Directives: Currently, there is no health care proxy. home support is adequate. Assessment: 18:56 General: Appears in no apparent distress, comfortable, Behavior is appropriate for age, ck1 cooperative. Pain: Location: lumbar area Pain currently is 9 out of 10 on a pain scale. : Denies burning with urination, inability to void. Derm: Skin is intact, is healthy with good turgor, Skin is pink, warm & dry. 20:00 Reassessment: Patient appears in no apparent distress at this time. Patient states ttb feeling better. Patient states symptoms have improved. pt requests medicaid cab. Called per request. . General: Appears in no apparent distress, Behavior is appropriate for age, cooperative, pleasant. Neurological: Level of Consciousness is awake, alert. Respiratory: No deficits noted. Airway is patent. Vital Signs: 18:10 BP 151 / 76; Pulse 105; Resp 18; Temp 98.2(O); Pulse Ox 98% ; Weight 104.33 kg; Height dem1 6 ft. 1 in. (185.42 cm); Pain 9/10; 20:00 BP 135 / 81; Pulse 88; Resp 18 S; Temp 97.6(O); Pulse Ox 98% on R/A; Pain 8/10; jp4 18:10 Body Mass Index 30.34 (104.33 kg, 185.42 cm) [facility] Vitals: 18:10 Log In Time: September 25, 2016 at 18:09. [facility] ED Course: 18:10 Patient visited by Janiya Singh. [facility]1 18:10 Lakisha Calles is Private Physician. dem1 18:10 Patient moved to Waiting dem1 18:11 Patient moved to Pre RCE dem1 18:15 Triage Initiated rs3 18:36 [facility] ck7 18:36 Judy Pino MD is Attending Physician. ck7 18:36 Patient visited by Rosendo Ivey RPA-C. ck7 18:36 Patient moved to Triage 2 jp4 18:56 Patient moved to TR2 ck1 18:58 The patient / caregiver is instructed regarding the plan of care and ED course. ck1 19:12 Patient visited by Rosendo Ivey RPA-C. ck7 19:23 Patient moved to PR1 / 25 jmb 19:33 [facility] Payment Agreement was scanned into [employer] and attached to record. ks16 19:48 Patient visited by Rosendo Ivey RPA-C. ck7 19:48 Lakisha Calles is Referral Physician. ck7 20:00 Patient visited by Koby Brown. jp4 20:00 No IV's were initiated during this patient's visit. No procedures done that require ttb assistance. 20:01 Patient moved to TR6 rs3 0212 11:11 Spine. Lumbosacral, Complete Returned. EDMS 22:51 T-Sheet-- Draft Copy was scanned into [employer] and attached to record. klr Administered Medications: 02 18:56 Drug: HYDROcodone-acetaminophen 1 tabs [hydrocodone 5 mg-acetaminophen 325 mg tablet (1 ck1 tabs)] Route: PO; 19:58 Follow up: Response: Confirmed pt not driving. kmg1 18:56 Drug: Methocarbamol 1 grams [methocarbamol 500 mg tablet (2 tabs)] Route: PO; ck1 19:58 Drug: HYDROcodone-acetaminophen 4 pack- 1 packets [hydrocodone 5 mg-acetaminophen 325 kmg1 mg tablet (1 tabs)] {Co-Signature: ttb (Carmela Simons RN).} Route: PO; 19:58 Follow up: Response: Med's dispensed home kmg1 Point of Care Testing: Urine Dip: 19:01 pH: 7.0; ; Specific [place]: 1.010; Ketones: Negative; Glucose: Negative; Protein: mlb1 Negative; Leukocytes: Negative; Nitrite: Negative ; Blood: Negative; Bilirubin: Negative ; Urobilinogen: Normal Ranges: Order Results: Radiology Order: Spine. Lumbosacral, Complete Test: Spine. Lumbosacral, Complete REASON FOR EXAMINATION: Deformity/Swelling; LUMBAR SPINE COMPLETE: 09/25/2016.; ; Clinical history: Back pain.; ; Comparison: 01/05/2009, MRI lumbar spine 03/12/2016.; ; Findings: Five views provided. The AP view shows pedicles, spinous and; transverse processes intact. There is no scoliosis. Sacral ala and foramina; intact. SI joints unremarkable. Lower thoracic levels and visualized ribs; intact. Oblique images show minor hypertrophic facet change at L4-5 and L5-S1.; I do not see spondylolysis or spondylolisthesis. There is degenerative disc; change at all levels in the lumbar spine with marginal osteophytes. Most disc; show slight loss of height sparing relatively the L3-4 level. No compression; deformity.; ; Impression:; ; 1. Degenerative disc and facet arthritic changes as described. No compression; fracture or malalignment. No spondylolysis.; ; ; Signed by; Isaiah Rizvi MD 09/26/2016 07:01 P; Outcome: 19:48 Discharge ordered by Provider. ck7 20:00 Discharge Assessment: Patient awake, alert and oriented x 3. No cognitive and/or ttb functional deficits noted. Patient verbalized understanding of disposition instructions. Patient awake and alert. patient administered narcotics - yes. Pt provided with safe discharge. The following High Risk Discharge criteria are identified: None. Discharged to home ambulatory. Condition: good Condition: stable Condition: improved. Discharge instructions given to patient, Instructed on discharge instructions, follow up and referral plans. medication usage, no driving heavy equipment, no drinking with medication, Demonstrated understanding of instructions, medications, Pt was receptive of discharge instructions/ teaching. Prescriptions given X 2. No special radiology studies were completed. Property :Personal belongings accompany Pt. 20:12 Patient left the ED. ttb Signatures: Dispatcher [employer] EDMS Usha Vale RN RN kmg1 Steve Mason RN RN mlb1 Maryse Argueta RN RN ck1 Sheyla Thomas RN RN rs3 Janiya Singh1 Rosendo Ivey, RPA-C RPA-Cck7 Carmela Simons RN RN ttb Hernan Hinojosa RN RN jmb Pignone, Jared jp4 Sorenson, Kimberly Kevin Reg ks16 Kaylan Camargo RN ttb Chart Complete MTDD
--- NOTE | 2016-09-27 21:13 | EDDOCDS ---
Physician Documentation [facility] Name: Joel Pablo Age: 55 yrs Sex: Male : 1960 Arrival Date: 09/25/2016 Time: 18:09 Bed TR6 Private MD: Lakisha Calles M. Disposition: 09/25/16 19:48 Discharged to Home/Self Care. Impression: Low back pain. - Condition is Stable. - Discharge Instructions: Back Pain, Adult. - Prescriptions for [place] 5- 325 mg Oral Tablet - take 1 tablet by ORAL route every 6 hours As needed MDD: 4 tabs; 6 tablet. Robaxin 500 mg Oral Tablet - take 2 tablet by ORAL route every 6 hours As needed; 40 tablet. - Medication Reconciliation, Local Pharmacy Hours form. - Follow up: Lakisha Calles; When: 2 - 3 days; Reason: Recheck today's complaints, Continuance of care. - Problem is new. - Symptoms have improved. - Notes: USE MEDICATIONS INSTRUCTED, FOLLOW UP WITH YOUR DOCTOR ON TUESDAY Historical: - Allergies: no known allergies; - Home Meds: 1. atorvastatin 10 mg oral tab 1 tab nightly 2. divalproex 500 mg oral TbEC 2 times per day 1 tab in AM 2 tabs in PM 3. duloxetine 30 mg Oral cpDR 1 cap once daily 4. losartan 100 mg oral tab 1 tab nightly 5. meloxicam 7.5 mg oral tab 1 tab once daily 6. nortriptyline 25 mg Oral cap 2 caps nightly 7. omeprazole 40 mg Oral cpDR 1 cap once daily - PMHx: Anxiety; Chronic Back pain; Depression; Diverticulosis; GERD; Hypercholesterolemia; Hypertension; - PSHx: Hernia repair- Left inguinal; Hernia repair- Right inguinal; - Social history: Smoking status: Patient uses tobacco products, light tobacco smoker. No barriers to communication noted, The patient speaks fluent Montenegrin. - Family history: Not pertinent. - : The pt / caregiver states he / she is not on anticoagulants. Home medication list is obtained from the patient. - Exposure Risk Screening:: None identified. Vital Signs: 09/25 18:10 BP 151 / 76; Pulse 105; Resp 18; Temp 98.2(O); Pulse Ox 98% ; Weight 104.33 kg / 230.01 dem1 lbs; Height 6 ft. 1 in. (185.42 cm); Pain 9/10; 20:00 BP 135 / 81; Pulse 88; Resp 18 S; Temp 97.6(O); Pulse Ox 98% on R/A; Pain 8/10; jp4 18:10 Body Mass Index 30.34 (104.33 kg, 185.42 cm) dem1 MDM: 18:51 Urine Dip ordered. ck7 18:51 HYDROcodone-acetaminophen 5 mg-325 mg 1 tabs PO once ordered. ck7 18:51 Methocarbamol 1 grams PO once ordered. ck7 18:51 Spine. Lumbosacral, Complete Ordered. EDMS 19:32 Financial registration complete. ks16 19:33 [facility] Payment Agreement was scanned into [employer] and attached to record. ks16 19:49 HYDROcodone-acetaminophen 4 pack- 5 mg-325 mg 1 packets PO Per package directions; ck7 Dispense with patient. 1 po q4h prn for pain ordered. 09/26 22:51 T-Sheet-- Draft Copy was scanned into [employer] and attached to record. klr Point of Care Testing: Urine Dip: 09/25 19:01 pH: 7.0; ; Specific [place]: 1.010; Ketones: Negative; Glucose: Negative; Protein: mlb1 Negative; Leukocytes: Negative; Nitrite: Negative ; Blood: Negative; Bilirubin: Negative ; Urobilinogen: Normal Ranges: Administered Medications: 18:56 Drug: HYDROcodone-acetaminophen 1 tabs [hydrocodone 5 mg-acetaminophen 325 mg tablet (1 ck1 tabs)] Route: PO; 19:58 Follow up: Response: Confirmed pt not driving. kmg1 18:56 Drug: Methocarbamol 1 grams [methocarbamol 500 mg tablet (2 tabs)] Route: PO; ck1 19:58 Drug: HYDROcodone-acetaminophen 4 pack- 1 packets [hydrocodone 5 mg-acetaminophen 325 kmg1 mg tablet (1 tabs)] {Co-Signature: ttb (Carmela Simons RN).} Route: PO; 19:58 Follow up: Response: Med's dispensed home kmg1 Signatures: Dispatcher [employer] EDMS Sheyla Thomas RN RN rs3 Rosendo Ivey, VERA-C RPA-Cck7 Carmela Simons RN RN ttb Darby Bernal Reg Reg ks16 Kaylan Camargo Kelly RN kmg1 Maryse Argueta RN ck1 Carmela Simons RN ttb The chart was reviewed and I authenticate all verbal orders and agree with the evaluation and treatment provided.Attachments: 19:33 [facility] Payment Agreement ks16 09/26 22:51 T-Sheet-- Draft Copy klr Chart Complete MTDD
== END 2016-09-25 20:12 | disposition home or self-care (01) ==
LOC: M ED 18:09
DX: M54.5 Low back pain (principal); G89.29 Other chronic pain; I10 Essential (primary) hypertension; F41.9 Anxiety disorder, unspecified; F33.9 Major depressive disorder, recurrent, unspecified; K57.30 Diverticulosis of large intestine without perforation or abscess without bleeding; K21.9 Gastro-esophageal reflux disease without esophagitis; E78.5 Hyperlipidemia, unspecified; F17.200 Nicotine dependence, unspecified, uncomplicated; Z79.899 Other long term (current) drug therapy; Z79.1 Long term (current) use of non-steroidal anti-inflammatories (NSAID)

== ENCOUNTER 2016-11-16 22:41 | Emergency (ER) | payer OTHER ==
[~2016-11-16] VITALS: Ht 185.4 cm; Wt 104.3 kg
[2016-11-16] MEDS ORDERED: VITA200015 (22:52)
[2016-11-16] MEDS ORDERED: BACL10TA2 (22:52)
[2016-11-16] MEDS ORDERED: DULO1CAP2 (22:52)
[2016-11-16] MEDS ORDERED: LOSA100T36 PO (22:52)
[2016-11-16] MEDS ORDERED: NORT25CA2 (22:52)
[2016-11-16] MEDS ORDERED: OMEP40CA2 PO (22:52)
[2016-11-16] MEDS ORDERED: DIVA500T9 (22:52)
[2016-11-16] MEDS ORDERED: ATOR1TAB19 PO (22:52)
[2016-11-17] MEDS ORDERED: ONDANSETRON 4MG/2ML VIAL (J2405) IV ONE (00:30)
[2016-11-17] MEDS ORDERED: KETOROLAC 30 MG/ML VIAL (J1885) IV ONE (01:15)
[2016-11-17 01:33] LABS: ALBUMIN/GLOBULIN RATIO 1.29 (1.00-1.93); ALKALINE PHOSPHATASE 65 U/L (45-117); ALT/SGPT 27 U/L (12-78); AMYLASE 92 U/L (25-115); ANION GAP 6 MEQ/L (8-16); AST/SGOT 15 U/L (15-37); BILIRUBIN,DIRECT 0.2 MG/DL (0.0-0.2); BILIRUBIN,TOTAL 0.4 MG/DL (0.2-1.0); BLOOD UREA NITROGEN 9 MG/DL (7-18); CALCIUM LEVEL 9.7 MG/DL (8.5-10.1); CARBON DIOXIDE LEVEL 29 MEQ/L (21-32); CHLORIDE LEVEL 103 MEQ/L (98-107); CREATININE FOR GFR 0.82 MG/DL (0.70-1.30); GLOMERULAR FILTRATION RATE > 60.0 (>56); GLUCOSE, FASTING 111 MG/DL (70-105); POTASSIUM SERUM 3.7 MEQ/L (3.5-5.1); SODIUM LEVEL 138 MEQ/L (136-145); TOTAL PROTEIN 7.1 GM/DL (6.4-8.2)
[2016-11-17 01:34] LABS: BASO % 0.4 % (0.0-1.0); EOS # 0.1 K/mm3 (0.0-0.50); EOS % 1.4 % (0.0-3.0); LARGE UNSTAINED CELL # 0.2 K/mm3 (0.0-0.4); LARGE UNSTAINED CELL % 1.9 % (0.0-4.0); LYMPH # 2.5 K/mm3 (1.5-4.5); LYMPH % 28.4 % (24.0-44.0); MEAN CORPUSCULAR HEMOGLOBIN 31.2 pg (27.0-33.0); MEAN CORPUSCULAR HGB CONC 34.9 g/dl (32.0-36.5); MEAN CORPUSCULAR VOLUME 89.4 fl (80.0-96.0); MONO # 0.8 K/mm3 (0.0-0.8); MONO % 9.6 % (0.0-5.0); NEUTROPHILS # 4.9 K/mm3 (1.8-7.7); NEUTROPHILS % 58.3 % (36.0-66.0); PLATELET COUNT, AUTOMATED 327 k/mm3 (150-450); RED CELL DISTRIBUTION WIDTH 12.5 % (11.5-14.5); WHITE BLOOD COUNT 8.3 K/mm3 (4.0-10.0)
--- NOTE | 2016-11-17 01:40 | REPUSA ---
CT of the abdomen and pelvis without contrast Clinical statement: Pain. Technique: Multiple axial CT images were obtained from the base of the lungs to the floor of the pelv is utilizing 5 mm axial slices without administration of contrast. Coronal and sagittal reconstructio ns were also obtained. Comparison: 11/11/2015. Findings: Chest: The visualized lung bases are clear. Abdomen: The kidneys are normal in size bilaterally. There is no evidence of hydronephrosis or nephro lithiasis. The liver, spleen, pancreas, gallbladder and adrenal glands are unremarkable. The aorta de monstrates normal caliber and contour. There is no abdominal lymphadenopathy or ascites. Pelvis: The bowel is unremarkable, with no obstructive or inflammatory changes. The appendix is joão l. The urinary bladder is within normal limits. There is no pelvic lymphadenopathy or ascites. The ot her pelvic structures appear unremarkable. Bones: There are no suspicious osseous abnormalities seen. Impression: Unremarkable CT examination of the abdomen and pelvis.
[2016-11-17] MEDS ORDERED: traMADol 50 MG TAB PO ONE (02:30)
[2016-11-17 02:39] VITALS: BP 125/81
== END 2016-11-17 02:48 | disposition home or self-care (01) ==
LOC: M ED 23:35
DX: R10.9 Unspecified abdominal pain (principal); M54.9 Dorsalgia, unspecified; G89.29 Other chronic pain; K21.9 Gastro-esophageal reflux disease without esophagitis; F33.9 Major depressive disorder, recurrent, unspecified; F41.9 Anxiety disorder, unspecified; K57.30 Diverticulosis of large intestine without perforation or abscess without bleeding; Z87.891 Personal history of nicotine dependence; Z79.899 Other long term (current) drug therapy
CPT/HCPCS: 74176; 80048; 80076; 81001; 82150; 82550; 82553; 83690; 85025; 87086; 93041; 96374; 96375; 99284; J1885; J2405

== ENCOUNTER 2016-11-22 19:43 | Emergency (ER) | payer OTHER ==
[~2016-11-22] VITALS: Ht 185.4 cm; Wt 102.1 kg
[~2016-11-22 19:43] MED LIST: ATOR1TAB19 PO; BACL10TA2; DIVA500T9; DULO1CAP2; LOSA100T36 PO; NORT25CA2; OMEP40CA2 PO; VITA200015
[2016-11-22 22:50] VITALS: BP 137/82
[2016-11-22] MEDS ORDERED: MEDR4PAK PO (22:55)
[2016-11-22] MEDS ORDERED: ZANA4TAB PO (22:55)
[2016-11-22] MEDS ORDERED: predniSONE 20 MG TAB PO ONE (23:00)
[2016-11-22] MEDS ORDERED: tiZANidine 4 MG TAB PO ONE (23:00)
== END 2016-11-22 23:03 | disposition home or self-care (01) ==
LOC: M ED 20:34
DX: M54.5 Low back pain (principal); I10 Essential (primary) hypertension; K21.0 Gastro-esophageal reflux disease with esophagitis; Z79.899 Other long term (current) drug therapy; Z72.0 Tobacco use

== ENCOUNTER 2017-02-04 03:17 | Emergency (ER) | payer OTHER ==
[~2017-02-04] VITALS: Ht 185.4 cm; Wt 104.5 kg
[~2017-02-04 03:17] MED LIST changes: +MEDR4PAK PO; +ZANA4TAB PO
[2017-02-04] MEDS ORDERED: NAPR500T PO (04:29)
[2017-02-04] MEDS ORDERED: PERC5TAB12 PO (04:29)
[2017-02-04] MEDS ORDERED: OXYCODONE/APAP 5MG/325MG(BULK FOR ED) 1 TABLET PO ONE (04:30)
[2017-02-04] MEDS ORDERED: KETOROLAC 60 MG/2 ML VIAL (J1885) IM ONE (04:30)
[2017-02-04 05:11] VITALS: BP 108/72
== END 2017-02-04 05:57 | disposition home or self-care (01) ==
LOC: EDBD 03:17 → M ED 03:48
DX: M54.5 Low back pain (principal); M51.36 Other intervertebral disc degeneration, lumbar region; F31.9 Bipolar disorder, unspecified

== ENCOUNTER → 2017-03-09 | Outpatient (CLI) | payer OTHER ==
[~2017-03-09] MED LIST changes: +BACL10TA2 PO; +DIVA500T3 PO; +NAPR500T PO; +PERC5TAB12 PO; +TRAM50TA2 PO
--- NOTE | 2017-03-09 23:49 | ECWPNPC ---
PATIENT NAME: OSMANY HOLDER : 1960 GENDER: MALE VISIT DATE: 03/09/2017 DISCHARGE DATE: 03/09/17 1434 VISIT LOCKED DATE TIME: PHYSICIAN: AUSTIN REN RESOURCE: AUSTIN REN REASON FOR APPOINTMENT 1. BACK PAIN HISTORY OF PRESENT ILLNESS FALL RISK SCREENIN56 Y/O MALE REFERRED BY [facility] FOR CHRONIC LOW BACK PAIN WITH LEFT SIDED SCIATICA.DESCRIBES PAIN CONSTANT,SHARP AND STABBING.RATING PAIN VAS 8/10.HAS TRIALED LESI LAST YEAR THAT WASNT HELPFUL AND SECOND ONE AGGREVATED PAIN.STARTED BACLOFEN 10MG TID ONE MONTH AGO WITH VERY LITTLE IMPROVEMENT.PAIN IS AGGREVATED BY WALKING OR LIFTING.PAIN IS RELIEVED SOMEWHAT WITH BACLOFEN.REPORTS PT DONE SEVERAL YEARS AGO WAS INEFFECTIVE.DENIES RECENT FEVER,ILLNESS OR WEIGHT LOSS.DENIES BOWEL OR BLADDER INCONTINENCE. SCREENING :NO FALLS IN THE PAST YEAR PAIN SCREENING: PATIENT HAS A COMPLAINT OF ACUTE OR CHRONIC PAIN :YES CURRENT MEDICATIONS TAKING SALICYLIC ACID 17 % SOLUTION 1 DROP TO AFFECTED AREA NEEDED EXTERNALLY ONCE A DAY TAKING LOSARTAN POTASSIUM 100 MG TABLET 1 TABLET ORALLY ONCE A DAY TAKING ATORVASTATIN CALCIUM 10 MG TABLET 1 TABLET ORALLY ONCE A DAY TAKING OMEPRAZOLE 40 MG CAPSULE DELAYED RELEASE 1 CAPSULE ORALLY TWICE A DAY TAKING NORTRIPTYLINE HCL 25 MG CAPSULE 1 CAPSULE ORALLY ONCE A DAY TAKING DEPAKOTE 500 MG TABLET DELAYED RELEASE 1 TABLET IN AM- 2 TABLETS IN EVENING ORALLY DIRECTED TAKING DULOXETINE HCL 30 MG CAPSULE DELAYED RELEASE PARTICLES 1 CAPSULE ORALLY EVERY DAY TAKING VITAMIN D 2000 UNIT TABLET 1 TABLET ORALLY ONCE A DAY TAKING BACLOFEN 10 MG TABLET 1 TABLET WITH FOOD OR MILK ORALLY THREE TIMES A DAY PRN TAKING DIVALPROEX SODIUM 500 MG TABLET DELAYED RELEASE ORALLY MEDICATION LIST REVIEWED AND RECONCILED WITH THE PATIENT PAST MEDICAL HISTORY COLONOSCOPY 2012. REPEAT 5 YEARS (2017) BIPOLAR HTN HYPERLIPIDEMIA REFLUX DIVERTICULOSIS ALLERGIES N.K.D.A. SURGICAL HISTORY BILATERAL INQUINAL HERNIA COLONOSCOPY DR. ROTH FAMILY HISTORY FATHER: 34 YRS, DIAGNOSED WITH HEART DISEASE MOTHER: ALIVE 88 YRS, DIAGNOSED WITH HEART DISEASE, CANCER SIBLINGS: ALIVE SON(S): ALIVE DAUGHTER(S): ALIVE 3 BROTHER(S) , 2 SISTER(S) . 1 SON(S) , 1 DAUGHTER(S) - HEALTHY. SOCIAL HISTORY GENERAL: TOBACCO USE ARE YOU A:CURRENT SMOKER HOW MANY CIGARETTES A DAY DO YOU SMOKE?5 OR LESS HOW SOON AFTER YOU WAKE UP DO YOU SMOKE YOUR FIRST CIGARETTE?AFTER 60 MIN HOW OFTEN DO YOU SMOKE CIGARETTES?EVERY DAY PATIENT COUNSELED ON THE DANGERS OF TOBACCO USE AND URGED TO QUIT:03/09/2017 ARE YOU INTERESTED IN QUITTING?NOT READY TO QUIT COUNSELED THE PATIENT ON SMOKING EFFECTS, EDUCATION [id number]/26/2017 SMOKING CESSATION INFORMATION GIVEN03/09/2017 LUNG CANCER SCREENING SMOKING STATUS:CURRENT SMOKER ALCOHOL SCREENING POINTS0 INTERPRETATIONNEGATIVE RECREATIONAL DRUG USE DRUG USE?YES CAFFEINE CAFFEINE USE?YES 5 / DAY SEXUAL HX HAD SEX IN THE LAST 12 MONTHS (VAGINAL, ORAL, OR ANAL)?YES WITHWOMEN ONLY USE PROTECTION?NO HAVE YOU EVER HAD AN STD?NO HIV / HEP-C SCREENING HIV TEST OFFERED TO PATIENT:YES DATE OFFERED:10/18/2016 TEST ACCEPTED:NO REASON:PATIENT DECLINED OCCUPATION: UNEMPLOYED ON [employer]. DIET: REGULAR, NO CONCENTRATED SWEETS.. EXERCISE: WALKS A LOT. MARITAL STATUS: / ROGELIO. PETS: 2 CATS/ LAURO TAZY. GNOSTICISM [id number] MORAVIAN LANGUAGE MALDIVIAN. EDUCATION 12 GRADE GRADUATE. LEARNING BARRIERS / SPECIAL NEEDS CHANGE FROM LAST VISIT?NO NEW PATIENT BARRIERS TO LEARNING?NO HEARING IMPAIRED?NO VISION IMPAIRED?NO READING GLASSES COGNITIVELY IMPAIRED?NO READINESS TO LEARN?YES LEARNING PREFERENCES?NO LEARNING CAPABILITIES PRESENT?YES EMOTIONAL BARRIERS?NO SPECIAL DEVICES?NO CABLE SPLICER NEEDED?NO ADVANCE DIRECTIVES HEALTH CARE PROXY?NO WOULD YOU LIKE MORE INFORMATION?NO DO YOU HAVE A DNR?NO WOULD YOU LIKE MORE INFORMATION?NO LIVING WILL?NO WOULD YOU LIKE MORE INFORMATION?NO POWER OF AIR CREW MEMBER?NO HOUSING: LIVES WITH . DOMESTIC VIOLENCE NONE. REVIEW OF SYSTEMS REVIEWED BY: PROVIDER: AUSTIN NAILS . CONSTITUTIONAL: ANY CHANGE IN YOUR MEDICAL CONDITION? NO . CHILLS NO . FEVER NO . INFECTION: DO YOU HAVE NEW INFECTIONS? NO . DO YOU HAVE HISTORY OF MRSA? NO . MUSCULOSKELETAL: ANY NEW PATTERNS OF PAIN OR NUMBNESS? NO . SYTEMIC LUPUS NO . GASTROENTEROLOGY: ANY NEW CHANGE IN BOWEL CONTROL? NO . BARRETTS ESOPHAGUS NO . CIRRHOSIS NO . HEPATITIS NO . LIVER FAILURE NO . ACID REFLUX NO . UNEXPLAINED WEIGHT LOSS NO . GENITOURINARY: ANY NEW CHANGE IN BLADDER CONTROL? NO . IS THERE A CHANCE YOU COULD BE ? NO . HEMATOLOGY/LYMPH: DO YOU TAKE ANY BLOOD THINNERS? (FOR EXAMPLE- COUMADIN, PLAVIX, AGGRENOX, PLATEL, PRADAXA, OR XARELTO) NO . WHEN WAS YOUR LAST DOSE? DATE: TIME: . LOW PLATELET COUNT NO . SICKLE CELL DISEASE NO . VON WILLIEBRANDS NO . FACTOR V LEIDEN NO . THALLASEMIA NO . ANEMIA NO . EASY BRUISING NO . NEUROLOGY: HAVE YOU FALLEN IN THE PAST 6 MONTHS? NO . ANY NEW EXTREMITY NUMBNESS OR WEAKNESS? NO . HEAD INJURY NO . DEMENTIA NO . CEREBRAL PALSY NO . MULTIPLE SCLEROSIS NO . DIZZINESS NO . HEADACHE NO . STROKES NO . VERTIGO NO . CARDIOLOGY: DO YOU HAVE A PACEMAKER OR DEFIBRILLATOR? NO . ANGINA NO . HEART ATTACK NO . HEART SURGERY NO . CONGESTIVE HEART FAILURE/FLUID OVERLOAD NO . CHEST PAIN NO . HIGH BLOOD PRESSURE NO . IRREGULAR HEART BEAT NO . RESPIRATORY: HAVE YOU BEEN SICK IN THE PAST WEEK? NO . FEVER NO . FLU LIKE SYMPTOMS? NO . CPAP NO . BYPAP NO . ASTHMA NO . EMPHYSEMA NO . CHRONIC LUNG DISEASES NO . SHORTNESS OF BREATH ON EXERTION NO . COUGH NO . SNORING NO . INTEGUMENTARY: DO YOU HAVE ANY RASHES OR OPEN SORES? NO . ALLERGIC/IMMUNO: ARE YOU ALLERGIC TO SHELLFISH OR IV DYE? NO . ANY NEW ALLERGIES? NO . PSYCHIATRIC: DO YOU HAVE THOUGHTS OF HURTING YOURSELF OR SOMEONE ELSE? NO . ARE YOU ABUSED, NEGLECTED, OR IN AN UNSAFE ENVIRONMENT? NO . ENDOCRINOLOGY: ARE YOU DIABETIC? NO . THYROID DISORDER NO . OTHER: DO YOU NEED ANY PRESCRIPTIONS? NO . IF YES, PLEASE LIST: ____ . ANY NEW PROBLEMS WITH YOUR MEDICATIONS? NO . WHEN DID YOU LAST EAT? ____ . WHEN DID YOU LAST DRINK? ____ . WHAT DID YOU LAST DRINK? ____ . NAME OF PERSON DRIVING YOU HOME? ____ . DO YOU HAVE ANY OTHER QUESTIONS OR CONCERNS NO . VITAL SIGNS WT 222.4 LBS, HT 71", BMI 31.02 INDEX, BP 142/78 MM HG, HR 77 /MIN, RR 18 /MIN, TEMP 96.0 F, OXYGEN SAT % 96%, SAFE IN ENV? (Y/N) Y, NA INITIALS TL 1324, REVIEWED BY: EM. EXAMINATION GENERAL EXAMINATION: GENERAL APPEARANCE:COOPERATIVE , COMFORTABLE. PSYCHAFFECT NORMAL. HEENT:NORMOCEPHALIC.PERRLA. NECK:NO THYROID ABNORMALITY, NO LYMPHADENOPATHY, NO MASS, NO CAROTID BRUIT, TRACHEA MIDLINE. LUNGS:LUNG [place] ARE CLEAR TO AUSCULTATION BILATERALLY. GOOD MOVEMENT OF AIR. HEART:S1, S2 IN A REGULAR RATE AND RHYTHM. NO SIGNIFICANT MURMURS, RUBS OR GALLOPS NOTED. BACK:TENDERNESS OVER L/S AXIS AND L/S PARASPINALS.SPECIFIC POINT TENDERNESS OVER LEFT SIJ.. ABDOMEN:PROTRUBERANT AND SOFT. ASSESSMENTS SACROILIAC JOINT PAIN - M53.3 (PRIMARY) LUMBAR SPONDYLOSIS - M47.816 TREATMENT SACROILIAC JOINT PAIN REFILL BACLOFEN TABLET, 10 MG, 1 TABLET WITH FOOD OR MILK, ORALLY, THREE TIMES A DAY PRN, 30 DAY(S), 90, REFILLS 0 START TRAMADOL HCL TABLET, 50 MG, 1 TABLET NEEDED, ORALLY, EVERY 6 HRS PRN MDD 4, 30 DAY(S), 45, REFILLS 0 NOTES: LEFT SIJ,ANATOMY OF THE SACROILIAC JOINT MATERIAL WAS PRINTED, REVIEWEAD AND GIVEN TO PT. PROCEDURE CODES FA211 ESTABILISHED PATIENT [facility] CHARGE DISPOSITION & COMMUNICATION FOLLOW UP POST PROC (REASON: LEFT SIJ) ELECTRONICALLY SIGNED BY JESU SOMERS ON 03/09/2017 AT 02:43 PM EDT DISCLAIMER : THIS IS A VISIT SUMMARY EXTRACTED FROM THE [employer] [employer] CHART. IT IS NOT A COPY OF THE [employer] PROGRESS NOTE. MTDD
== END ==
LOC: M PAIN 13:20
PROVIDERS: ATTEND Nurse Practitioner Family
DX: G89.29 Other chronic pain (principal); M53.3 Sacrococcygeal disorders, not elsewhere classified; M47.816 Spondylosis without myelopathy or radiculopathy, lumbar region; F31.9 Bipolar disorder, unspecified; I10 Essential (primary) hypertension; E78.5 Hyperlipidemia, unspecified; K21.9 Gastro-esophageal reflux disease without esophagitis; F17.210 Nicotine dependence, cigarettes, uncomplicated; E55.9 Vitamin D deficiency, unspecified

== ENCOUNTER → 2017-04-07 | Outpatient (REF) | payer OTHER ==
[2017-04-07 12:50] LABS: ALBUMIN/GLOBULIN RATIO 1.25 (1.00-1.93); ALKALINE PHOSPHATASE 65 U/L (45-117); ALT/SGPT 28 U/L (12-78); ANION GAP 10 MEQ/L (8-16); AST/SGOT 11 U/L (15-37); BILIRUBIN,TOTAL 0.3 MG/DL (0.2-1.0); BLOOD UREA NITROGEN 7 MG/DL (7-18); CALCIUM LEVEL 9.1 MG/DL (8.5-10.1); CARBON DIOXIDE LEVEL 28 MEQ/L (21-32); CHLORIDE LEVEL 104 MEQ/L (98-107); CREATININE FOR GFR 0.85 MG/DL (0.70-1.30); GLOMERULAR FILTRATION RATE > 60.0 (>56); GLUCOSE, FASTING 85 MG/DL (70-105); POTASSIUM SERUM 3.9 MEQ/L (3.5-5.1); SODIUM LEVEL 142 MEQ/L (136-145); TOTAL PROTEIN 7.2 GM/DL (6.4-8.2)
== END ==
LOC: M SFHCPLAZ 09:16
PROVIDERS: ATTEND Nurse Practitioner Family
DX: I10 Essential (primary) hypertension (principal); E55.9 Vitamin D deficiency, unspecified

== ENCOUNTER 2017-04-12 16:35 | Emergency (ER) | payer OTHER ==
[~2017-04-12] VITALS: Ht 185.4 cm; Wt 104.5 kg
[~2017-04-12 16:35] MED LIST changes: -BACL10TA2 PO; -DIVA500T3 PO; -TRAM50TA2 PO
[2017-04-12] MEDS ORDERED: TRAM50TA2 PO (16:48)
[2017-04-12] MEDS ORDERED: BACL10TA2 PO (16:48)
[2017-04-12] MEDS ORDERED: DIVA500T3 PO (16:48)
[2017-04-12] MEDS ORDERED: MORPHINE 4 MG/ML 1ML SYRINGE IV ONE (18:45)
--- NOTE | 2017-04-12 19:40 | REPUSA ---
MRI of the lumbar spine without contrast Clinical statement: Pain. Technique: Multiecho multiplanar MRI images of the lumbar spine were obtained without administration of contrast. No comparison is available. Findings: The lumbar vertebral bodies are in satisfactory position and alignment. No fractures or dis locations are demonstrated. Normal heterogeneous bone marrow signal is noted. No osseous tumors are s een. The intervertebral disc heights are well maintained and demonstrate normal signal. The filum ter minale and conus medullaris appear unremarkable. The spinal cord demonstrates normal signal and conto ur. The surrounding soft tissues are within normal limits. At the lumbar vertebral levels, there is no evidence of disc herniation or protrusion. There is no ce ntral canal stenosis. The neural foramina are patent bilaterally. Impression: Unremarkable MRI examination of the lumbar spine.
[2017-04-12 19:50] VITALS: BP 129/81
[2017-04-12 20:01] LABS: BASO % 0.6 % (0.0-1.0); EOS # 0.2 K/mm3 (0.0-0.50); LARGE UNSTAINED CELL # 0.1 K/mm3 (0.0-0.4); LARGE UNSTAINED CELL % 1.9 % (0.0-4.0); LYMPH # 2.3 K/mm3 (1.5-4.5); LYMPH % 36.6 % (24.0-44.0); MEAN CORPUSCULAR HEMOGLOBIN 30.9 pg (27.0-33.0); MEAN CORPUSCULAR HGB CONC 34.3 g/dl (32.0-36.5); MEAN CORPUSCULAR VOLUME 90.1 fl (80.0-96.0); MONO # 0.5 K/mm3 (0.0-0.8); MONO % 7.6 % (0.0-5.0); NEUTROPHILS # 3.2 K/mm3 (1.8-7.7); NEUTROPHILS % 50.2 % (36.0-66.0); PLATELET COUNT, AUTOMATED 333 k/mm3 (150-450); RED CELL DISTRIBUTION WIDTH 12.3 % (11.5-14.5); WHITE BLOOD COUNT 6.3 K/mm3 (4.0-10.0)
[2017-04-12 20:06] LABS: ANION GAP 9 MEQ/L (8-16); BLOOD UREA NITROGEN 8 MG/DL (7-18); CALCIUM LEVEL 9.4 MG/DL (8.5-10.1); CARBON DIOXIDE LEVEL 29 MEQ/L (21-32); CHLORIDE LEVEL 102 MEQ/L (98-107); CREATININE FOR GFR 0.87 MG/DL (0.70-1.30); GLOMERULAR FILTRATION RATE > 60.0 (>56); GLUCOSE, FASTING 80 MG/DL (70-105); SODIUM LEVEL 140 MEQ/L (136-145)
== END 2017-04-12 21:16 | disposition home or self-care (01) ==
LOC: M ED 16:35
DX: M54.5 Low back pain (principal); I10 Essential (primary) hypertension; K21.9 Gastro-esophageal reflux disease without esophagitis; F31.9 Bipolar disorder, unspecified; F17.200 Nicotine dependence, unspecified, uncomplicated; Z79.899 Other long term (current) drug therapy

== ENCOUNTER → 2017-05-03 | Outpatient (CLI) | payer OTHER ==
[~2017-05-03] MED LIST changes: +BACL10TA2 PO; +BUPIVACAINE HCL 0.25% 30 ML VIAL As Ordered ONE; +DIVA500T3 PO; +ISOVUE-M 300 61% 15ML VIAL (Q9967) As Ordered ONE; +LIDOCAINE 1% SDV INJ 30 ML VIAL As Ordered ONE; +TRAM50TA2 PO; +TRIAMCINOLONE ACETONIDE SUSP 40 MG/ML VIAL (J3301) As Ordered ONE; +diazePAM 5 MG TAB As Ordered ONE; +oxyCODONE 5MG TAB As Ordered ONE
--- NOTE | 2017-05-03 11:26 | REP ---
Partial SI joint series: Four views. History: Left SI joint injection for pain. 26 seconds of fluoroscopy time is reported. Findings: A sequence of four last image hold fluoroscopic spot radiographs of the left SI joint document various needle positions and contrast injections. Signed by Daniel Leong MD 05/03/2017 11:18 A
--- NOTE | 2017-05-04 00:18 | ECWPNPC ---
PATIENT NAME: OSMANY HOLDER : 1960 GENDER: MALE VISIT DATE: 05/03/2017 DISCHARGE DATE: 05/03/17 1134 VISIT LOCKED DATE TIME: PHYSICIAN: SORIN BOWENS RESOURCE: SORIN BOWENS REASON FOR APPOINTMENT 1. L SIJ HISTORY OF PRESENT ILLNESS HISTORY OF PRESENT ILLNESS: PAIN THE PATIENT DESCRIBES THE PAIN... FALL RISK SCREENING: SCREENING :NO FALLS IN THE PAST YEAR CURRENT MEDICATIONS TAKING OMEPRAZOLE 40 MG CAPSULE DELAYED RELEASE 1 CAPSULE ORALLY TWICE A DAY, NOTES: 05/02/171999 TAKING NORTRIPTYLINE HCL 25 MG CAPSULE 1 CAPSULE ORALLY ONCE A DAY, NOTES: 05/02/171999 TAKING DEPAKOTE 500 MG TABLET DELAYED RELEASE 1 TABLET IN AM- 2 TABLETS IN EVENING ORALLY DIRECTED, NOTES: 05/02/171999 TAKING DULOXETINE HCL 30 MG CAPSULE DELAYED RELEASE PARTICLES 1 CAPSULE ORALLY EVERY DAY, NOTES: 05/02/17 0800 TAKING DIVALPROEX SODIUM 500 MG TABLET DELAYED RELEASE ORALLY , NOTES: 05/02/171999 TAKING BACLOFEN 10 MG TABLET 1 TABLET WITH FOOD OR MILK ORALLY THREE TIMES A DAY PRN, NOTES: TAKING TRAMADOL HCL 50 MG TABLET 1 TABLET NEEDED ORALLY EVERY 6 HRS PRN MDD 4, NOTES: 04/30/17 TAKING ATORVASTATIN CALCIUM 10 MG TABLET 1 TABLET ONCE A DAY ORALLY 90 DAYS , NOTES: 05/02/171999 TAKING VITAMIN D 2000 UNIT TABLET 1 TABLET ORALLY ONCE A DAY, NOTES: 05/02/17 0800 TAKING OMEPRAZOLE 40 MG CAPSULE DELAYED RELEASE 1 CAPSULE TWICE A DAY ORALLY 90 DAYS , NOTES: 05/02/171999 TAKING LOSARTAN POTASSIUM 100 MG TABLET 1 TABLET ONCE A DAY ORALLY 90 DAYS , NOTES: 05/02/171999 NOT-TAKING SALICYLIC ACID 17 % SOLUTION 1 DROP TO AFFECTED AREA NEEDED EXTERNALLY ONCE A DAY, NOTES: NOT USING MEDICATION LIST REVIEWED AND RECONCILED WITH THE PATIENT PAST MEDICAL HISTORY COLONOSCOPY 2013. REPEAT 5 YEARS (2018) BIPOLAR HTN HYPERLIPIDEMIA REFLUX DIVERTICULOSIS ALLERGIES N.K.D.A. SURGICAL HISTORY BILATERAL INQUINAL HERNIA COLONOSCOPY DR. ROTH SOCIAL HISTORY GENERAL: TOBACCO USE ARE YOU A:CURRENT SMOKER HOW MANY CIGARETTES A DAY DO YOU SMOKE?5 OR LESS HOW SOON AFTER YOU WAKE UP DO YOU SMOKE YOUR FIRST CIGARETTE?AFTER 60 MIN HOW OFTEN DO YOU SMOKE CIGARETTES?EVERY DAY PATIENT COUNSELED ON THE DANGERS OF TOBACCO USE AND URGED TO QUIT:05/03/2017 ARE YOU INTERESTED IN QUITTING?NOT READY TO QUIT CUTTING DOWN COUNSELED THE PATIENT ON SMOKING EFFECTS, EDUCATION [id number]/19/2017 SMOKING CESSATION INFORMATION GIVEN03/09/2017 LUNG CANCER SCREENING SMOKING STATUS:CURRENT SMOKER ALCOHOL SCREENING DID YOU HAVE A DRINK CONTAINING ALCOHOL IN THE PAST YEAR?NO POINTS0 INTERPRETATIONNEGATIVE RECREATIONAL DRUG USE DRUG USE?YES CAFFEINE CAFFEINE USE?YES 5 / DAY SEXUAL HX HAD SEX IN THE LAST 12 MONTHS (VAGINAL, ORAL, OR ANAL)?YES WITHWOMEN ONLY USE PROTECTION?NO HAVE YOU EVER HAD AN STD?NO HIV / HEP-C SCREENING HIV TEST OFFERED TO PATIENT:YES DATE OFFERED:10/18/2016 TEST ACCEPTED:NO REASON:PATIENT DECLINED OCCUPATION: UNEMPLOYED ON [employer]. DIET: REGULAR, NO CONCENTRATED SWEETS.. EXERCISE: WALKS A LOT. MARITAL STATUS: / ROGELIO. PETS: 2 CATS/ LAURO TAZY. RESTORATION [id number] BAPTISM LANGUAGE WELSH. EDUCATION 12 GRADE GRADUATE. LEARNING BARRIERS / SPECIAL NEEDS CHANGE FROM LAST VISIT?NO NEW PATIENT BARRIERS TO LEARNING?NO HEARING IMPAIRED?NO VISION IMPAIRED?NO READING GLASSES COGNITIVELY IMPAIRED?NO READINESS TO LEARN?YES LEARNING PREFERENCES?NO LEARNING CAPABILITIES PRESENT?YES EMOTIONAL BARRIERS?NO SPECIAL DEVICES?NO CONTROL ENGINEER NEEDED?NO PAIN CLINIC PFS, CLERGY, PUBLIC HEALTH REFERRALS HAS THE PATIENT BEEN EDUCATED REGARDING HIS/HER PLAN OF CARE?YES HAS THE PATIENT BEEN EDUCATED REGARDING PAIN, THE RISK FOR PAIN, THE IMPORTANCE OF EFFECTIVE PAIN MANAGEMENT, AND THE PAIN ASSESSMENT PROCESS?YES ADVANCE DIRECTIVES HEALTH CARE PROXY?NO WOULD YOU LIKE MORE INFORMATION?NO DO YOU HAVE A DNR?NO WOULD YOU LIKE MORE INFORMATION?NO LIVING WILL?NO WOULD YOU LIKE MORE INFORMATION?NO POWER OF DIRECTOR OF REHABILITATIVE SERVICES?NO HOUSING: LIVES WITH . DOMESTIC VIOLENCE NONE. REVIEW OF SYSTEMS REVIEWED BY: PROVIDER: . CONSTITUTIONAL: ANY CHANGE IN YOUR MEDICAL CONDITION? NO . CHILLS NO . FEVER NO . INFECTION: DO YOU HAVE NEW INFECTIONS? NO . DO YOU HAVE HISTORY OF MRSA? NO . MUSCULOSKELETAL: ANY NEW PATTERNS OF PAIN OR NUMBNESS? NO . GASTROENTEROLOGY: ANY NEW CHANGE IN BOWEL CONTROL? NO . GENITOURINARY: ANY NEW CHANGE IN BLADDER CONTROL? NO . IS THERE A CHANCE YOU COULD BE ? NO . HEMATOLOGY/LYMPH: DO YOU TAKE ANY BLOOD THINNERS? (FOR EXAMPLE- COUMADIN, PLAVIX, AGGRENOX, PLATEL, PRADAXA, OR XARELTO) NO . WHEN WAS YOUR LAST DOSE? DATE: TIME: . NEUROLOGY: HAVE YOU FALLEN IN THE PAST 6 MONTHS? NO . ANY NEW EXTREMITY NUMBNESS OR WEAKNESS? NO . CARDIOLOGY: DO YOU HAVE A PACEMAKER OR DEFIBRILLATOR? NO . RESPIRATORY: HAVE YOU BEEN SICK IN THE PAST WEEK? NO . FEVER NO . FLU LIKE SYMPTOMS? NO . COUGH NO . INTEGUMENTARY: DO YOU HAVE ANY RASHES OR OPEN SORES? NO . ALLERGIC/IMMUNO: ARE YOU ALLERGIC TO SHELLFISH OR IV DYE? NO . ANY NEW ALLERGIES? NO . PSYCHIATRIC: DO YOU HAVE THOUGHTS OF HURTING YOURSELF OR SOMEONE ELSE? NO . ARE YOU ABUSED, NEGLECTED, OR IN AN UNSAFE ENVIRONMENT? NO . ENDOCRINOLOGY: ARE YOU DIABETIC? NO . OTHER: DO YOU NEED ANY PRESCRIPTIONS? YES . IF YES, PLEASE LIST: ____TRAMADOL . ANY NEW PROBLEMS WITH YOUR MEDICATIONS? NO . WHEN DID YOU LAST EAT? ____05/02/17 2300 . WHEN DID YOU LAST DRINK? ____05/02/17 0800 . WHAT DID YOU LAST DRINK? ____WATER . NAME OF PERSON DRIVING YOU HOME? ____[employer]ICA[employer] . DO YOU HAVE ANY OTHER QUESTIONS OR CONCERNS NO . VITAL SIGNS WT 213 LBS, HT 71", BMI 29.70 INDEX, BP 127/76 MM HG, HR 86 /MIN, RR 18 /MIN, TEMP 98.3 F, OXYGEN SAT % 97%, SAFE IN ENV? (Y/N) YES, NA INITIALS AW 0918, REVIEWED BY: LAS. RAMOS SACROILIITIS, NOT ELSEWHERE CLASSIFIED - M46.1 (PRIMARY) PROCEDURES PN SI PRE PROCEDURE DIAGNOSIS SACROILIITIS, SACROILIAC JOINT DYSFUNCTION POST PROCEDURE DIAGNOSIS SACROILIITIS, SACROILIAC JOINT DYSFUNCTION PROCEDURE LEFT SACROILIAC JOINT BLOCK SURGEON DR. SORIN BOWENS [facility] RN NONE ANESTHESIA LOCAL PRE PROCEDURE NOTE PATIENT WITH HISTORY OF CHRONIC LOW BACK PAIN. I EVALUATED THE PATIENT AND REVIEWED THE CHART. I WENT OVER THE RISKS, ALTERNATIVES, AND BENEFITS ASSOCIATED WITH THIS PROCEDURE. THE PATIENT WOULD LIKE TO PROCEED AND GAVE CONSENT TO PERFORM THE PROCEDURE. THE PATIENT DENIES UNEXPLAINABLE WEIGHT LOSS, FEVER, CHILLS, OR NEW CHANGES IN URINARY OR BOWEL CONTROL DESCRIPTION OF PROCEDURE THE PATIENT WAS BROUGHT TO THE PROCEDURE ROOM AND PLACED IN THE PRONE POSITION. THE LUMBOSACRAL AREA WAS CLEANED WITH CHLORAPREP SOLUTION AND DRAPED ASEPTICALLY. THE PROCEDURE WAS DONE UNDER STERILE CONDITIONS. I CHECKED LATERALITY AND THE LEVEL WHERE THE PROCEDURE WAS GOING TO BE PERFORMED WITH THE PATIENT AND THE SUPPORTING STAFF AT THE MOMENT OF THE TIME OUT IN THE PROCEDURE ROOM. UNDER FLUOROSCOPIC GUIDANCE, TARGET POINT WAS SELECTED AT THE LOWER BORDER OF THE LEFT SACROILIAC JOINT. TARGET POINT WAS SELECTED AFTER MEDIAL ROTATION AND TILT OF THE MAGNIFIER OF THE C-ARM. LIDOCAINE WAS USED TO NUMB THE SKIN AND SUBCUTANEOUS TISSUE BELOW IT. A SPINAL NEEDLE, 22-GAUGE, WAS ADVANCED UNDER FLUOROSCOPIC GUIDANCE AND FOLLOWING PATIENT FEEDBACK UNTIL THE TARGET AREA WAS TOUCHED. THE POSITION OF THE NEEDLE WAS VERIFIED WITH AP AND LATERAL VIEWS. AFTER PROPER POSITION OF THE NEEDLE WAS ACHIEVED, ISOVUE M DYE 30%, 0.25 ML, WAS INJECTED SHOWING SPREAD OF THE DYE. THEN, A SOLUTION OF 20 MG OF KENALOG WAS INJECTED IN RIGHT JOINT WITH 3 ML OF BUPIVACAINE 0.125%. THERE WAS NO EVIDENCE OF BLOOD, PARESTHESIA OR CEREBROSPINAL FLUID DURING THE PROCEDURE. THE PATIENT WAS SENT TO THE RECOVERY ROOM. THE PATIENT WAS MOVING THE EXTREMITIES AND DOING WELL. THERE WAS NO COMPLICATION DURING THE PROCEDURE. FLUOROSCOPY TIME WAS 26 SECONDS POST PROCEDURE NOTE THE PATIENT WILL BE SEEN IN A FOLLOW UP IN THE NEXT FEW WEEKS. INSTRUCTIONS WERE GIVEN, QUESTIONS WERE ANSWERED, AND THE PATIENT EXPRESSED UNDERSTANDING AND AGREED WITH THE PLAN. I, ROBERT LÓPEZ, DOCUMENTED THE ABOVE INFORMATION ACTING A SCRIBE FOR DR. BOWENS. I HAVE REVIEWED THE ABOVE DOCUMENT, WRITTEN BY ROBERT MURCIA AND I VERIFY THAT IT IS [facility] FLUORO GUIDANCE (PAIN)[id number] PROCEDURE CODES 54246 INJECT SACROILIAC JOINT 6045F RADXPS IN END [id number] PXD DISPOSITION & COMMUNICATION FOLLOW UP 3 WEEKS ELECTRONICALLY SIGNED BY SORIN BOWENS MD ON 05/03/2017 AT 09:18 PM EDT DISCLAIMER : THIS IS A VISIT SUMMARY EXTRACTED FROM THE [facility] CHART. IT IS NOT A COPY OF THE [facility] PROGRESS NOTE. THEODORA
== END ==
LOC: M PAIN 10:00
PROVIDERS: ATTEND Anesthesiology
DX: G89.29 Other chronic pain (principal); M46.1 Sacroiliitis, not elsewhere classified; M53.88 Other specified dorsopathies, sacral and sacrococcygeal region; I10 Essential (primary) hypertension; E78.5 Hyperlipidemia, unspecified; K21.9 Gastro-esophageal reflux disease without esophagitis; E55.9 Vitamin D deficiency, unspecified; F31.9 Bipolar disorder, unspecified; F17.210 Nicotine dependence, cigarettes, uncomplicated; Z79.899 Other long term (current) drug therapy
CPT/HCPCS: 27096; J3301; Q9967

== ENCOUNTER → 2017-10-10 | Outpatient (CLI) | payer OTHER | LOC: M PAIN 13:15 | DX: G89.29 Other chronic pain (principal); M53.3 Sacrococcygeal disorders, not elsewhere classified; F31.9 Bipolar disorder, unspecified; I10 Essential (primary) hypertension; E78.5 Hyperlipidemia, unspecified; K21.9 Gastro-esophageal reflux disease without esophagitis; K57.90 Diverticulosis of intestine, part unspecified, without perforation or abscess without bleeding; F17.210 Nicotine dependence, cigarettes, uncomplicated; Z79.899 Other long term (current) drug therapy | CPT/HCPCS: G0463 ==

== ENCOUNTER → 2017-10-27 | Outpatient (REF) | payer OTHER ==
[2017-10-27 12:26] LABS: BASO # 0.1 10^3/uL (0.0-0.2); BASO % 0.5 % (0.0-1.0); EOS # 0.2 10^3/uL (0.0-0.50); EOS % 2.4 % (0.0-3.0); HEMATOCRIT 43.5 % (42.0-52.0); HEMOGLOBIN 14.8 g/dl (14.0-18.0); IMMATURE GRANULOCYTE % 0.2 % (0-3.0); LYMPH # 2.3 10^3/uL (1.5-4.5); LYMPH % 24.5 % (24.0-44.0); MEAN CORPUSCULAR HEMOGLOBIN 30.3 pg (27.0-33.0); MEAN CORPUSCULAR VOLUME 89.1 fl (80.0-96.0); MONO # 0.9 10^3/uL (0.0-0.8); MONO % 9.1 % (0.0-5.0); NEUTROPHILS # 5.9 10^3/uL (1.8-7.7); NEUTROPHILS % 63.3 % (36.0-66.0); PLATELET COUNT, AUTOMATED 343 10^3/uL (150-450); RED BLOOD COUNT 4.88 10^6/uL (4.30-6.10); RED CELL DISTRIBUTION WIDTH 12.9 % (11.5-14.5); WHITE BLOOD COUNT 9.3 10^3/uL (4.0-10.0)
[2017-10-27 12:42] LABS: ALBUMIN/GLOBULIN RATIO 1.43 (1.00-1.93); ALKALINE PHOSPHATASE 66 U/L (45-117); ALT/SGPT 26 U/L (12-78); AMYLASE 89 U/L (25-115); ANION GAP 10 MEQ/L (8-16); AST/SGOT 12 U/L (7-37); BILIRUBIN,TOTAL 0.4 MG/DL (0.2-1.0); BLOOD UREA NITROGEN 4 MG/DL (7-18); CALCIUM LEVEL 9.3 MG/DL (8.5-10.1); CARBON DIOXIDE LEVEL 28 MEQ/L (21-32); CHLORIDE LEVEL 100 MEQ/L (98-107); CHOLESTEROL LEVEL 242 MG/DL (<200); CHOLESTEROL RISK RATIO 7.562 (<5); CREATININE FOR GFR 0.74 MG/DL (0.70-1.30); GLOMERULAR FILTRATION RATE > 60.0 (>56); GLUCOSE, FASTING 80 MG/DL (70-100); HDL CHOLESTEROL 32 MG/DL (>40); LDL CHOLESTEROL 153.8 MG/DL (<100); LIPASE 157 U/L (73-393); NON-HDL-C 210 MG/DL; POTASSIUM SERUM 3.9 MEQ/L (3.5-5.1); PSA SCREENING 0.75 NG/ML (< 4.0); SODIUM LEVEL 138 MEQ/L (136-145); TOTAL PROTEIN 6.8 GM/DL (6.4-8.2); TRIGLYCERIDES LEVEL 281 MG/DL (<150)
[2017-10-27 16:33] LABS: CREATININE, URINE 69.3 MG/DL; MALB URINE SIEMENS < 5.0 MG/L; MAU/CREAT RATIO 7.2 MCG/MG (0.0-30.0)
== END ==
LOC: M SFHCPLAZ 09:45
DX: K21.9 Gastro-esophageal reflux disease without esophagitis (principal); R10.13 Epigastric pain; I10 Essential (primary) hypertension; E78.5 Hyperlipidemia, unspecified; Z12.5 Encounter for screening for malignant neoplasm of prostate

== ENCOUNTER → 2017-10-31 | Outpatient (REF) | payer OTHER ==
[2017-11-02 14:15] LABS: H PYLORI STOOL ANTIGEN Negative (Negative)
== END ==
LOC: M SFHCPLAZ 11-01 09:58
DX: K21.9 Gastro-esophageal reflux disease without esophagitis (principal)
CPT/HCPCS: 87338

== ENCOUNTER → 2017-10-31 | Outpatient (CLI) | payer OTHER | LOC: M RAD 05:04 | DX: R10.13 Epigastric pain (principal) | CPT/HCPCS: 76705 ==

== ENCOUNTER → 2017-11-01 | Outpatient (CLI) | payer OTHER ==
[~2017-11-01] MED LIST changes: -ATOR1TAB19 PO; -BACL10TA2; -BACL10TA2 PO; +BUPIVACAINE HCL 0.25% 30 ML VIAL As Ordered; -BUPIVACAINE HCL 0.25% 30 ML VIAL As Ordered ONE; -DIVA500T3 PO; -DIVA500T9; -DULO1CAP2; +ISOVUE-M 300 61% 15ML VIAL (Q9967) As Ordered; -ISOVUE-M 300 61% 15ML VIAL (Q9967) As Ordered ONE; +LIDOCAINE 1% SDV INJ 30 ML VIAL As Ordered; -LIDOCAINE 1% SDV INJ 30 ML VIAL As Ordered ONE; -LOSA100T36 PO; -MEDR4PAK PO; -NAPR500T PO; -NORT25CA2; -OMEP40CA2 PO; -PERC5TAB12 PO; -TRAM50TA2 PO; +TRIAMCINOLONE ACETONIDE SUSP 40 MG/ML VIAL (J3301) As Ordered; -TRIAMCINOLONE ACETONIDE SUSP 40 MG/ML VIAL (J3301) As Ordered ONE; -VITA200015; -ZANA4TAB PO; +diazePAM 5 MG TAB As Ordered; -diazePAM 5 MG TAB As Ordered ONE; +oxyCODONE 5MG TAB As Ordered; -oxyCODONE 5MG TAB As Ordered ONE
== END ==
LOC: M PAIN 10:00
DX: G89.29 Other chronic pain (principal); M46.1 Sacroiliitis, not elsewhere classified; I10 Essential (primary) hypertension; E78.5 Hyperlipidemia, unspecified; E55.9 Vitamin D deficiency, unspecified; F31.9 Bipolar disorder, unspecified; K21.9 Gastro-esophageal reflux disease without esophagitis; F17.210 Nicotine dependence, cigarettes, uncomplicated; Z79.82 Long term (current) use of aspirin; Z79.891 Long term (current) use of opiate analgesic; Z79.899 Other long term (current) drug therapy
CPT/HCPCS: J3301

== ENCOUNTER → 2017-12-07 | Outpatient (CLI) | payer OTHER | LOC: M RAD 13:15 | DX: F17.210 Nicotine dependence, cigarettes, uncomplicated (principal); Z12.2 Encounter for screening for malignant neoplasm of respiratory organs (principal) | CPT/HCPCS: G0297 ==

== ENCOUNTER 2017-12-17 20:28 | Emergency (ER) | payer OTHER ==
[2017-12-17 21:24] LABS: BASO % 0.3 % (0.0-1.0); EOS # 0.1 10^3/uL (0.0-0.50); EOS % 0.7 % (0.0-3.0); HEMATOCRIT 47.8 % (42.0-52.0); HEMOGLOBIN 16.6 g/dl (13.5-17.5); IMMATURE GRANULOCYTE % 0.2 % (0-3.0); LYMPH # 0.6 10^3/uL (1.5-4.5); LYMPH % 4.3 % (24.0-44.0); MEAN CORPUSCULAR HEMOGLOBIN 30.6 pg (27.0-33.0); MEAN CORPUSCULAR HGB CONC 34.7 g/dl (32.0-36.5); MONO # 0.6 10^3/uL (0.0-0.8); MONO % 4.7 % (0.0-5.0); NEUTROPHILS # 12.1 10^3/uL (1.8-7.7); NEUTROPHILS % 89.8 % (36.0-66.0); PLATELET COUNT, AUTOMATED 328 10^3/uL (150-450); RED BLOOD COUNT 5.43 10^6/uL (4.30-6.10); RED CELL DISTRIBUTION WIDTH 12.9 % (11.5-14.5); WHITE BLOOD COUNT 13.5 10^3/uL (4.0-10.0)
[2017-12-17] MEDS: NS 1,000 ML IV (21:35)
[2017-12-17] MEDS: MORPHINE 2 MG/ML 1ML SYRINGE (J2270) IV (21:36)
[2017-12-17] MEDS: METOCLOPRAMIDE INJ 10MG/2ML VIAL (J2765) IV (21:36)
[2017-12-17 21:38] LABS: ALBUMIN 3.9 GM/DL (3.2-5.2); ALBUMIN/GLOBULIN RATIO 1.15 (1.00-1.93); ALKALINE PHOSPHATASE 72 U/L (45-117); ALT/SGPT 25 U/L (12-78); ANION GAP 8 MEQ/L (8-16); AST/SGOT 19 U/L (7-37); BILIRUBIN,DIRECT 0.1 MG/DL (0.0-0.2); BILIRUBIN,TOTAL 0.6 MG/DL (0.2-1.0); BLOOD UREA NITROGEN 9 MG/DL (7-18); CALCIUM LEVEL 9.1 MG/DL (8.5-10.1); CARBON DIOXIDE LEVEL 25 MEQ/L (21-32); CHLORIDE LEVEL 104 MEQ/L (98-107); CK-MB VALUE MASS 1.1 NG/ML (<3.6); CPK CREATINE PHOSPHOKINASE 98 U/L (39-308); CREATININE FOR GFR 0.76 MG/DL (0.70-1.30); GLOMERULAR FILTRATION RATE > 60.0 (>56); GLUCOSE, FASTING 101 MG/DL (70-100); LIPASE 193 U/L (73-393); MB/CK RELATIVE INDEX 1.12 (< OR =4); POTASSIUM SERUM 3.3 MEQ/L (3.5-5.1); SODIUM LEVEL 137 MEQ/L (136-145); TOTAL PROTEIN 7.3 GM/DL (6.4-8.2); TROPONIN I < 0.02 NG/ML (< 0.10)
[2017-12-17] MEDS ORDERED: ISOVUE-370 76% 100ML VIAL (Q9967) As Ordered (21:43)
== END 2017-12-17 23:41 | disposition home or self-care (01) ==
LOC: M ED 20:28
DX: K52.9 Noninfective gastroenteritis and colitis, unspecified (principal); K42.9 Umbilical hernia without obstruction or gangrene; K21.9 Gastro-esophageal reflux disease without esophagitis; K76.0 Fatty (change of) liver, not elsewhere classified; F17.200 Nicotine dependence, unspecified, uncomplicated; Z79.82 Long term (current) use of aspirin; Z79.899 Other long term (current) drug therapy
CPT/HCPCS: Q9967

== ENCOUNTER → 2018-01-26 | Outpatient (CLI) | payer OTHER | LOC: M PAIN 10:45 | DX: M53.3 Sacrococcygeal disorders, not elsewhere classified (principal); M47.817 Spondylosis without myelopathy or radiculopathy, lumbosacral region; F31.9 Bipolar disorder, unspecified; I10 Essential (primary) hypertension; E78.5 Hyperlipidemia, unspecified; K21.9 Gastro-esophageal reflux disease without esophagitis; F17.210 Nicotine dependence, cigarettes, uncomplicated; Z79.82 Long term (current) use of aspirin; Z79.899 Other long term (current) drug therapy | CPT/HCPCS: G0463 ==

== ENCOUNTER → 2018-02-07 | Outpatient (CLI) | payer OTHER ==
[~2018-02-07] MED LIST changes: -TRIAMCINOLONE ACETONIDE SUSP 40 MG/ML VIAL (J3301) As Ordered; -diazePAM 5 MG TAB As Ordered; -oxyCODONE 5MG TAB As Ordered
== END ==
LOC: M PAIN 11:00
DX: G89.29 Other chronic pain (principal); M47.816 Spondylosis without myelopathy or radiculopathy, lumbar region; M47.817 Spondylosis without myelopathy or radiculopathy, lumbosacral region; F31.9 Bipolar disorder, unspecified; I10 Essential (primary) hypertension; E78.5 Hyperlipidemia, unspecified; K21.9 Gastro-esophageal reflux disease without esophagitis; F17.210 Nicotine dependence, cigarettes, uncomplicated; Z79.82 Long term (current) use of aspirin; Z79.899 Other long term (current) drug therapy
CPT/HCPCS: Q9967

== ENCOUNTER 2018-04-12 22:58 | Inpatient (IN) | payer MEDICAID, OTHER ==
[2018-04-13 00:01] LABS: AMPHETAMINES LEVEL URINE NEGATIVE (NEGATIVE); BARBITURATES URINE NEGATIVE (NEGATIVE); BENZODIAZEPINES URINE NEGATIVE (NEGATIVE); CANNABINOIDS URINE POSITIVE (NEGATIVE); COCAINE METABOLITE URINE NEGATIVE (NEGATIVE); METHADONE URINE NEGATIVE (NEGATIVE); OPIATES URINE NEGATIVE (NEGATIVE); PHENCYCLIDINE URINE NEGATIVE (NEGATIVE)
[2018-04-13 00:20] LABS: HEMATOCRIT 43.1 % (42.0-52.0); HEMOGLOBIN 15.2 g/dl (13.5-17.5); MEAN CORPUSCULAR HEMOGLOBIN 30.8 pg (27.0-33.0); MEAN CORPUSCULAR HGB CONC 35.3 g/dl (32.0-36.5); MEAN CORPUSCULAR VOLUME 87.2 fl (80.0-96.0); PLATELET COUNT, AUTOMATED 380 10^3/uL (150-450); RED BLOOD COUNT 4.94 10^6/uL (4.30-6.10); RED CELL DISTRIBUTION WIDTH 12.4 % (11.5-14.5); WHITE BLOOD COUNT 10.8 10^3/uL (4.0-10.0)
[2018-04-13 00:44] LABS: ALBUMIN/GLOBULIN RATIO 1.38 (1.00-1.93); ALKALINE PHOSPHATASE 71 U/L (45-117); ALT/SGPT 22 U/L (12-78); ANION GAP 9 MEQ/L (8-16); AST/SGOT 14 U/L (7-37); BILIRUBIN,DIRECT 0.2 MG/DL (0.0-0.2); BILIRUBIN,TOTAL 0.8 MG/DL (0.2-1.0); BLOOD UREA NITROGEN 6 MG/DL (7-18); CALCIUM LEVEL 9.2 MG/DL (8.5-10.1); CARBON DIOXIDE LEVEL 26 MEQ/L (21-32); CHLORIDE LEVEL 100 MEQ/L (98-107); CREATININE FOR GFR 0.79 MG/DL (0.70-1.30); ETHYL ALCOHOL (ETHANOL) < 0.003 % (0.000-0.010); GLOMERULAR FILTRATION RATE > 60.0 (>56); GLUCOSE, FASTING 89 MG/DL (70-100); POTASSIUM SERUM 3.7 MEQ/L (3.5-5.1); SALICYLATE LEVEL 2.4 MG/DL (5.0-30.0); SODIUM LEVEL 135 MEQ/L (136-145); THYROID STIMULATING HORMONE 0.468 uIU/ML (0.358-3.740); TOTAL PROTEIN 6.9 GM/DL (6.4-8.2); VALPROIC ACID (DEPAKOTE) < 3.0 UG/ML (50.0-100.0)
[2018-04-13 00:48] LABS: ACETAMINOPHEN LEVEL < 2.0 UG/ML (10.0-30.0)
[2018-04-13] MEDS ORDERED: traZODone 50 MG TAB PO (01:15)
[2018-04-13] MEDS ORDERED: MOM 30ML SUSPENSION UDC PO (01:15)
[2018-04-13] MEDS: MAALOX 30 ML SUSP *UDC PO (07:33)
[2018-04-13] MEDS: DULoxetine 30 MG CAP (CYMBALTA) PO (10:05)
[2018-04-13] MEDS: DIVALPROEX 500 MG TAB PO ×2 (10:05→20:32)
[2018-04-13] MEDS: LORazepam 1 MG TAB PO ×2 (10:05→17:50)
[2018-04-13] MEDS: NICOTINE 21MG/24HR 1 EA TRANSDERMAL TD (12:42)
[2018-04-13] MEDS: VITAMIN D 1,000 INTERNATIONAL UNITS TABLET PO (13:35)
[2018-04-13] MEDS: MELOXICAM (MOBIC) 7.5 MG TAB PO (13:35)
[2018-04-13] MEDS: PANTOPRAZOLE 40MG TAB (PROTONIX) PO (13:35)
[2018-04-13] MEDS: ASPIRIN 81 MG ENTERIC TAB PO (13:35)
[2018-04-13] MEDS: traMADol 50 MG TAB PO ×2 (13:36→20:34)
[2018-04-13] MEDS: ATORVASTATIN 20 MG TAB PO (20:32)
[2018-04-13] MEDS: LOSARTAN 50 MG TAB PO (20:33)
[2018-04-14] MEDS: DULoxetine 30 MG CAP (CYMBALTA) PO (07:48)
[2018-04-14] MEDS: NICOTINE 21MG/24HR 1 EA TRANSDERMAL TD (07:48)
[2018-04-14] MEDS: PANTOPRAZOLE 40MG TAB (PROTONIX) PO (07:48)
[2018-04-14] MEDS: MELOXICAM (MOBIC) 7.5 MG TAB PO (07:49)
[2018-04-14] MEDS: LORazepam 1 MG TAB PO ×2 (07:49→17:40)
[2018-04-14] MEDS: VITAMIN D 1,000 INTERNATIONAL UNITS TABLET PO (07:49)
[2018-04-14] MEDS: ASPIRIN 81 MG ENTERIC TAB PO (07:49)
[2018-04-14] MEDS: DIVALPROEX 500 MG TAB PO ×2 (07:49→20:23)
[2018-04-14] MEDS: traMADol 50 MG TAB PO (17:44)
[2018-04-14] MEDS: ATORVASTATIN 20 MG TAB PO (20:22)
[2018-04-14] MEDS: LOSARTAN 50 MG TAB PO (20:23)
[2018-04-15] MEDS: PANTOPRAZOLE 40MG TAB (PROTONIX) PO (08:01)
[2018-04-15] MEDS: ASPIRIN 81 MG ENTERIC TAB PO (08:01)
[2018-04-15] MEDS: MELOXICAM (MOBIC) 7.5 MG TAB PO (08:01)
[2018-04-15] MEDS: VITAMIN D 1,000 INTERNATIONAL UNITS TABLET PO (08:01)
[2018-04-15] MEDS: DIVALPROEX 500 MG TAB PO (08:01)
[2018-04-15] MEDS: DULoxetine 30 MG CAP (CYMBALTA) PO (08:01)
[2018-04-15] MEDS: NICOTINE 21MG/24HR 1 EA TRANSDERMAL TD (08:02)
[2018-04-15] MEDS: traMADol 50 MG TAB PO ×2 (08:02→15:30)
[2018-04-15] MEDS: LORazepam 1 MG TAB PO ×2 (12:53→19:59)
[2018-04-15] MEDS: ATORVASTATIN 20 MG TAB PO (20:00)
[2018-04-15] MEDS: LOSARTAN 50 MG TAB PO (20:00)
[2018-04-16] MEDS: MELOXICAM (MOBIC) 7.5 MG TAB PO (08:14)
[2018-04-16] MEDS: ASPIRIN 81 MG ENTERIC TAB PO (08:15)
[2018-04-16] MEDS: DULoxetine 30 MG CAP (CYMBALTA) PO (08:15)
[2018-04-16] MEDS: VITAMIN D 1,000 INTERNATIONAL UNITS TABLET PO (08:15)
[2018-04-16] MEDS: NICOTINE 21MG/24HR 1 EA TRANSDERMAL TD (08:15)
[2018-04-16] MEDS: PANTOPRAZOLE 40MG TAB (PROTONIX) PO (08:15)
[2018-04-16] MEDS: DIVALPROEX 500 MG TAB PO ×2 (08:15→20:07)
[2018-04-16] MEDS: ACETAMINOPHEN TAB 650MG DOSE (2X325MG) PO (09:07)
[2018-04-16] MEDS: LORazepam 1 MG TAB PO ×3 (11:30→20:09)
[2018-04-16] MEDS: traMADol 50 MG TAB PO ×2 (11:31→20:09)
[2018-04-16] MEDS: ATORVASTATIN 20 MG TAB PO (20:07)
[2018-04-16] MEDS: LOSARTAN 50 MG TAB PO (20:08)
[2018-04-16] MEDS: MIRTAZAPINE 15 MG TAB PO (20:08)
[2018-04-17] MEDS: NICOTINE 21MG/24HR 1 EA TRANSDERMAL TD (08:16)
[2018-04-17] MEDS: LORazepam 1 MG TAB PO ×2 (08:17→16:32)
[2018-04-17] MEDS: ASPIRIN 81 MG ENTERIC TAB PO (08:18)
[2018-04-17] MEDS: MELOXICAM (MOBIC) 7.5 MG TAB PO (08:18)
[2018-04-17] MEDS: DULoxetine 30 MG CAP (CYMBALTA) PO (08:18)
[2018-04-17] MEDS: DIVALPROEX 500 MG TAB PO ×2 (08:18→20:11)
[2018-04-17] MEDS: VITAMIN D 1,000 INTERNATIONAL UNITS TABLET PO (08:18)
[2018-04-17] MEDS: PANTOPRAZOLE 40MG TAB (PROTONIX) PO (08:18)
[2018-04-17 11:27] LABS: VALPROIC ACID (DEPAKOTE) 73.5 UG/ML (50.0-100.0)
[2018-04-17] MEDS: traMADol 50 MG TAB PO (16:31)
[2018-04-17] MEDS: MIRTAZAPINE 15 MG TAB PO (20:11)
[2018-04-17] MEDS: LOSARTAN 50 MG TAB PO (20:12)
[2018-04-17] MEDS: ATORVASTATIN 20 MG TAB PO (20:13)
[2018-04-18] MEDS: MELOXICAM (MOBIC) 7.5 MG TAB PO (08:09)
[2018-04-18] MEDS: ASPIRIN 81 MG ENTERIC TAB PO (08:09)
[2018-04-18] MEDS: VITAMIN D 1,000 INTERNATIONAL UNITS TABLET PO (08:09)
[2018-04-18] MEDS: DIVALPROEX 500 MG TAB PO (08:09)
[2018-04-18] MEDS: NICOTINE 21MG/24HR 1 EA TRANSDERMAL TD (08:09)
[2018-04-18] MEDS: PANTOPRAZOLE 40MG TAB (PROTONIX) PO (08:10)
[2018-04-18] MEDS: traMADol 50 MG TAB PO (08:10)
[2018-04-18] MEDS: DULoxetine 30 MG CAP (CYMBALTA) PO (08:10)
== END 2018-04-18 13:01 | disposition home or self-care (01) | DRG 885 ==
LOC: M ED 22:58 → M PSY 04-16 12:25 → M ED INP 04-13 01:01 → M PSY 04-13 01:50
DX: F31.60 Bipolar disorder, current episode mixed, unspecified (principal); Z79.899 Other long term (current) drug therapy; Z79.82 Long term (current) use of aspirin; I10 Essential (primary) hypertension; E78.00 Pure hypercholesterolemia, unspecified; K21.9 Gastro-esophageal reflux disease without esophagitis; K57.30 Diverticulosis of large intestine without perforation or abscess without bleeding; F17.210 Nicotine dependence, cigarettes, uncomplicated; E55.9 Vitamin D deficiency, unspecified

== ENCOUNTER → 2018-04-26 | Outpatient (CLI) | payer OTHER | LOC: M PAIN 14:15 | DX: M51.26 Other intervertebral disc displacement, lumbar region (principal); F31.9 Bipolar disorder, unspecified; I10 Essential (primary) hypertension; E78.5 Hyperlipidemia, unspecified; K21.9 Gastro-esophageal reflux disease without esophagitis; K57.90 Diverticulosis of intestine, part unspecified, without perforation or abscess without bleeding; F17.210 Nicotine dependence, cigarettes, uncomplicated; Z79.82 Long term (current) use of aspirin; Z79.899 Other long term (current) drug therapy | CPT/HCPCS: G0463 ==

== ENCOUNTER 2018-06-28 21:49 | Emergency (ER) | payer OTHER ==
[2018-06-28] MEDS: tiZANidine 4 MG TAB PO (22:47)
[2018-06-28] MEDS: NORCO, ANEXSIA 5/325MG TABLET (HYDROcodone/ACETAMINOPHEN) PO (22:47)
[2018-06-28] MEDS: KETOROLAC 60 MG/2 ML VIAL (J1885) IM (22:48)
[2018-06-28] MEDS: methylPREDNISolone INJ 125 MG/2 ML VIAL (J2930) IM (22:49)
== END 2018-06-28 22:15 | disposition home or self-care (01) ==
LOC: M ED 21:49
DX: M54.9 Dorsalgia, unspecified (principal); G89.29 Other chronic pain; I10 Essential (primary) hypertension; E78.00 Pure hypercholesterolemia, unspecified; F33.9 Major depressive disorder, recurrent, unspecified; F41.9 Anxiety disorder, unspecified; F17.210 Nicotine dependence, cigarettes, uncomplicated; Z79.82 Long term (current) use of aspirin; Z79.899 Other long term (current) drug therapy
CPT/HCPCS: J1885

== ENCOUNTER 2018-07-03 09:19 | Day surgery (SDC) | payer OTHER ==
[2018-07-03] MEDS: NS 1,000 ML IV (07:00)
[2018-07-03] MEDS ORDERED: fentaNYL 100 MCG/2 ML INJECTION (J3010) As Ordered (10:12)
[2018-07-03] MEDS ORDERED: PROPOFOL 500 MG/50 ML VIAL As Ordered (10:12)
[2018-07-03] MEDS ORDERED: LIDOCAINE 2% INJ 100 MG/5 ML SDV (FOR ANES.) As Ordered (10:12)
== END 2018-07-03 11:04 | disposition home or self-care (01) ==
LOC: M OPP 09:19
DX: K64.8 Other hemorrhoids (principal); K57.30 Diverticulosis of large intestine without perforation or abscess without bleeding; R12 Heartburn; K22.70 Barrett's esophagus without dysplasia; K22.8 Other specified diseases of esophagus; K44.9 Diaphragmatic hernia without obstruction or gangrene; Z86.010 Personal history of colon polyps
CPT/HCPCS: 45378

== ENCOUNTER → 2018-09-19 | Outpatient (REF) | payer OTHER ==
[~2018-09-19] MED LIST changes: +ASPI1TAB15 PO; +ATOR1TAB19 PO; +ATOR80TA59 PO; +BACL10TA2; +BACL10TA2 PO; -BUPIVACAINE HCL 0.25% 30 ML VIAL As Ordered; +DEPA1TAB3 PO; +DEPA500T2 PO; +DIVA500T9; +DIVA500T94 PO; +DULO1CAP2; +DULO1CAP3 PO; +DULO30CA PO; -ISOVUE-M 300 61% 15ML VIAL (Q9967) As Ordered; -LIDOCAINE 1% SDV INJ 30 ML VIAL As Ordered; +LOSA100T50 PO; +MEDR4PAK PO; +MELO15TA28 PO; +MIRT15TA3 PO; +NAPR-50 PO; +NORT25CA2; +OMEP40CA2 PO; +PANT40TA3 PO; +PERC5TAB12 PO; +TRAM50TA2 PO; +VITA200015; +VITA200015 PO; +ZANA4TAB PO; +ZOFR4TAB14 PO
== END ==
LOC: M SFHCPLAZ 14:36
PROVIDERS: ATTEND Nurse Practitioner Family
DX: I10 Essential (primary) hypertension (principal); E78.5 Hyperlipidemia, unspecified; E55.9 Vitamin D deficiency, unspecified; Z53.9 Procedure and treatment not carried out, unspecified reason

== ENCOUNTER → 2018-11-21 | Outpatient (CLI) | payer OTHER ==
[~2018-11-21] MED LIST changes: -DULO30CA PO; +DULO30CA9 PO; -NAPR-50 PO; +NAPR-837 PO; +PROHANCE 279.3MG/ML 15ML VIAL (A9576) As Ordered ONE; +PROHANCE 279.3MG/ML 5ML VIAL (A9576) As Ordered ONE
--- NOTE | 2018-11-21 13:48 | REP ---
MRI LUMBAR SPINE WITHOUT AND WITH IV CONTRAST: HISTORY: Spondylosis without myelopathy or radiculopathy. Rule out metastatic disease. Rule out stenosis or herniation. Bilateral hip pain. Status post lumbar fusion. Comparison MRI study is from April 12, 2017. TECHNIQUE: Sagittal and axial T1- and T2-weighted scans are acquired in the usual fashion with and without fat saturation. Sequences include spin echo, turbo spin-echo, and STIR imaging sequences. Gadolinium enhancement dose of 17 mL of intravenous ProHance. FINDINGS: Lumbar vertebral body heights are preserved. There is some straightening. No fracture or collapse is seen. There is degenerative disc disease to some degree at each level most pronounced at L2-3 and L4-5. There are reactive marrow changes on either side of the L2-3 disc. These are more pronounced than on the 2017 prior study. There is some T2-weighted edema on either side of the L2-3 disc anteriorly. Mild discogenic marrow changes are seen at the superior endplate of L5 anteriorly. The tip of the conus medullaris is normal in position and appearance at T12 at the top edge of the imaging field of view. No abnormalities noted at the L1-2 disc level. At L2-3, axial and sagittal images demonstrate a small elongate cranially extruded central disc protrusion. This extends up along the posterior cortex of the L2 vertebral body indenting the ventral thecal sac nearly to its superior endplate level. This is unchanged. This indents the ventral margin of the thecal sac in the midline along the L2 vertebral body. There is mild diffuse bulging of the remainder of the disc margin at L2-3 unchanged. No central canal stenosis is seen. No other disc protrusion is see L2-3. At L3-4, there is minimal diffuse disc bulging. No central canal stenosis is seen. There is facet hypertrophy and ligamentum flavum hypertrophy noted mild in degree. Findings are unchanged. At L4-5, there is mild diffuse disc bulging indenting the ventral margin of the thecal sac. This is a little more prominent than on the 2017 prior study. There is ligamentum flavum and facet hypertrophy again noted essentially unchanged. No central canal stenosis is noted. No neural foraminal encroachment is appreciated. At L5-S1, there is mild central disc bulging. Mild facet hypertrophy is noted. No thecal sac compression is seen. Post gadolinium enhanced images show enhancement associated with the discogenic marrow change described above and L2-3 and L4-5. No other abnormal gadolinium enhancement is appreciated. No postsurgical changes are appreciated. IMPRESSION: Degenerative spondylosis changes as noted above. Central L2-3 disc protrusion with cranial extrusion again noted unchanged indenting the ventral margin of the thecal sac in the midline at L2. Diffuse disc bulging at L4-5 is somewhat more prominent. Otherwise unchanged. Electronically Signed by Daniel Leong MD 11/21/2018 08:31 P
== END ==
LOC: M RAD 09:17
PROVIDERS: ATTEND Physician Assistant
DX: M47.817 Spondylosis without myelopathy or radiculopathy, lumbosacral region (principal); M51.26 Other intervertebral disc displacement, lumbar region
CPT/HCPCS: 72158; A9576

== ENCOUNTER → 2018-11-21 | Outpatient (CLI) | payer OTHER ==
[~2018-11-21] MED LIST changes: -PROHANCE 279.3MG/ML 15ML VIAL (A9576) As Ordered ONE; -PROHANCE 279.3MG/ML 5ML VIAL (A9576) As Ordered ONE
[2018-11-21 10:11] LABS: ALBUMIN 3.9 GM/DL (3.2-5.2); ALT/SGPT 18 U/L (12-78); BILIRUBIN,TOTAL 0.3 MG/DL (0.2-1.0); BLOOD UREA NITROGEN 6 MG/DL (7-18); CALCIUM LEVEL 8.8 MG/DL (8.5-10.1); CARBON DIOXIDE LEVEL 29 MEQ/L (21-32); CHLORIDE LEVEL 104 MEQ/L (98-107); CHOLESTEROL LEVEL 132 MG/DL (<200); CHOLESTEROL RISK RATIO 3.473 (<5); CREATININE FOR GFR 0.83 MG/DL (0.70-1.30); FREE T4 1.17 NG/DL (0.76-1.46); GLOMERULAR FILTRATION RATE > 60.0 (>56); GLUCOSE, FASTING 94 MG/DL (70-100); HDL CHOLESTEROL 38 MG/DL (>40); LDL CHOLESTEROL 64 MG/DL (<100); NON-HDL-C 94 MG/DL; POTASSIUM SERUM 4.1 MEQ/L (3.5-5.1); SODIUM LEVEL 140 MEQ/L (136-145); TOTAL PROTEIN 6.8 GM/DL (6.4-8.2); TRIGLYCERIDES LEVEL 148 MG/DL (<150)
[2018-11-21 10:13] LABS: TOTAL 25(OH) VITAMIN D 55.9 NG/ML (30.0-100.0)
[2018-11-21 10:14] LABS: MALB URINE SIEMENS 6.6 MG/L; MAU/CREAT RATIO 3.5 MCG/MG (0.0-30.0)
== END ==
LOC: M LAB 08:57
PROVIDERS: ATTEND Nurse Practitioner Family
DX: I10 Essential (primary) hypertension (principal); E78.5 Hyperlipidemia, unspecified; E55.9 Vitamin D deficiency, unspecified

== ENCOUNTER → 2018-11-22 | Outpatient (CLI) | payer OTHER ==
--- NOTE | 2018-11-22 13:33 | REP ---
Body radionuclide bone scan: History: Lumbosacral spondylosis without myelopathy or radiculopathy. Evaluate for metastatic disease. Technique: 21.7 mCi technetium 99m MDP is injected and standard whole body bone scan imaging was acquired. Scintigraphic findings: There is a normal distribution of skeletal tracer with uptake in bilateral kidneys and in the urinary bladder. There is no evidence to suggest skeletal metastatic disease. Mild degenerative pattern of increased uptake is seen in the cervical spine facets, left more so than right. There is mild arthritic uptake in the right forefoot, first MTP joint. Impression: No evidence to suggest skeletal metastatic disease. Electronically Signed by Daniel Leong MD 11/22/2018 05:28 P
== END ==
LOC: M RAD 07:42
PROVIDERS: ATTEND Physician Assistant
DX: M47.817 Spondylosis without myelopathy or radiculopathy, lumbosacral region (principal)
CPT/HCPCS: 78306; A9503

== ENCOUNTER 2019-04-07 22:40 | Emergency (ER) | payer OTHER ==
[~2019-04-07] VITALS: Ht 185.4 cm; Wt 100.0 kg
[2019-04-07 22:40] VITALS: BP 133/89
[~2019-04-07 22:40] MED LIST changes: -DULO1CAP2; -DULO1CAP3 PO; +DULO1CAP5; +DULO1CAP6 PO
[2019-04-07] MEDS ORDERED: GABA600T4 PO (22:47)
[2019-04-07] MEDS ORDERED: HM I200C PO (22:47)
[2019-04-08] MEDS ORDERED: CYCLOBENZAPRINE 10 MG TAB PO ONE (00:15)
[2019-04-08] MEDS ORDERED: KETOROLAC TROMETHAMINE 10 MG TAB PO ONE (00:15)
[2019-04-08] MEDS ORDERED: MOBI4TAB PO (01:34)
--- NOTE | 2019-04-08 10:51 | REP ---
AP pelvis: Comparisons are the abdomen/pelvis CT of 12/17/2017 . There is an accessory ossicle at the lateral margin of the left acetabular roof, unchanged from the comparison CT. There is no acute fracture. Mineralization is normal. The acromioclavicular and articulations and right left hip articulations are unremarkable. There are abdominal mesh retainer is in surgical clips in the pelvis. Impression: No acute fracture. Accessory ossicle at the lateral margin of the left acetabular roof. Left hip two views: There is no acute fracture or dislocation. Mineralization is normal. The joint space is unremarkable. There is an accessory ossicle at the lateral margin of the acetabular roof. Electronically Signed by Eddy Garay MD 04/08/2019 08:07 A
== END 2019-04-08 02:00 | disposition home or self-care (01) ==
LOC: M ED 22:40
DX: M25.552 Pain in left hip (principal); I10 Essential (primary) hypertension; E78.5 Hyperlipidemia, unspecified; K21.9 Gastro-esophageal reflux disease without esophagitis; K27.9 Peptic ulcer, site unspecified, unspecified as acute or chronic, without hemorrhage or perforation; K52.9 Noninfective gastroenteritis and colitis, unspecified; F41.9 Anxiety disorder, unspecified; F31.9 Bipolar disorder, unspecified; F17.210 Nicotine dependence, cigarettes, uncomplicated; Z79.899 Other long term (current) drug therapy; Z79.82 Long term (current) use of aspirin; Z79.1 Long term (current) use of non-steroidal anti-inflammatories (NSAID)

== ENCOUNTER → 2019-04-11 | Outpatient (REF) | payer OTHER ==
[~2019-04-11] MED LIST changes: +GABA600T4 PO; +HM I200C PO; +MOBI4TAB PO
[2019-04-11 10:23] LABS: HEMATOCRIT 47.7 % (42.0-52.0); HEMOGLOBIN 16.1 g/dl (13.5-17.5); MEAN CORPUSCULAR HEMOGLOBIN 30.7 pg (27.0-33.0); MEAN CORPUSCULAR HGB CONC 33.8 g/dl (32.0-36.5); MEAN CORPUSCULAR VOLUME 90.9 fl (80.0-96.0); PLATELET COUNT, AUTOMATED 362 10^3/uL (150-450); RED BLOOD COUNT 5.25 10^6/uL (4.30-6.10); WHITE BLOOD COUNT 11.7 10^3/uL (4.0-10.0)
[2019-04-11 10:54] LABS: ALBUMIN 4.1 GM/DL (3.2-5.2); ALT/SGPT 15 U/L (12-78); BILIRUBIN,TOTAL 0.7 MG/DL (0.2-1.0); BLOOD UREA NITROGEN 8 MG/DL (7-18); CALCIUM LEVEL 9.8 MG/DL (8.5-10.1); CARBON DIOXIDE LEVEL 31 MEQ/L (21-32); CHLORIDE LEVEL 101 MEQ/L (98-107); CREATININE FOR GFR 0.88 MG/DL (0.70-1.30); GLOMERULAR FILTRATION RATE > 60.0 (>56); GLUCOSE, FASTING 84 MG/DL (70-100); POTASSIUM SERUM 3.9 MEQ/L (3.5-5.1); SODIUM LEVEL 139 MEQ/L (136-145)
[2019-04-11 11:00] LABS: TOTAL 25(OH) VITAMIN D 52.2 NG/ML (30.0-100.0)
== END ==
LOC: M SFHCPLAZ 07:29
PROVIDERS: ATTEND Nurse Practitioner Family
DX: K21.9 Gastro-esophageal reflux disease without esophagitis (principal); I10 Essential (primary) hypertension; E78.5 Hyperlipidemia, unspecified; E55.9 Vitamin D deficiency, unspecified

== ENCOUNTER → 2019-10-05 | Outpatient (REF) | payer OTHER ==
[~2019-10-05] MED LIST changes: -OMEP40CA2 PO; +OMEP40CA97 PO
[2019-10-05 15:47] LABS: PLATELET COUNT, AUTOMATED 348 10^3/uL (150-450)
[2019-10-05 16:01] LABS: INR 0.98; PROTHROMBIN TIME 12.7 SECONDS (11.8-14.0)
[2019-10-05 16:02] LABS: PARTIAL THROMBOPLASTIN TIME 30.4 SECONDS (25.0-38.4)
== END ==
LOC: M LABDRAW1 15:27
PROVIDERS: ATTEND Physician Assistant
DX: Z01.812 Encounter for preprocedural laboratory examination (principal); M47.817 Spondylosis without myelopathy or radiculopathy, lumbosacral region

== ENCOUNTER → 2019-10-08 | Outpatient (REF) | payer OTHER ==
[2019-10-08 16:07] LABS: COLLAGEN EPINEPHRINE > 300 SECONDS (74-162)
[2019-10-08 16:22] LABS: COLLAGEN ADP 106 SECONDS (56-103)
== END ==
LOC: M LABDRAW1 15:39
PROVIDERS: ATTEND Physician Assistant
DX: M47.817 Spondylosis without myelopathy or radiculopathy, lumbosacral region (principal)

== ENCOUNTER → 2020-02-06 | Outpatient (CLI) | payer OTHER ==
--- NOTE | 2020-02-06 16:31 | REP ---
RIGHT HAND, FOUR VIEWS: Four views of the right hand performed. I seen no acute fracture or dislocation. A small round calcific density just distal to the ulna may represent an old avulsion fracture. There is very mild diffuse narrowing of the distal interphalangeal joints. No other significant finding is seen. IMPRESSION: Possible old avulsion fracture ulnar styloid process. Very mild arthritic changes distal interphalangeal joints. Electronically Signed by Eddy Song MD 02/06/2020 07:42 P
== END ==
LOC: M WUC 14:32
PROVIDERS: ATTEND Physician Assistant
DX: M79.641 Pain in right hand (principal)

== ENCOUNTER → 2020-12-30 | Outpatient (CLI) | payer OTHER ==
[~2020-12-30] MED LIST changes: +ASPI-546 PO; -ASPI1TAB15 PO; +PANT40TA29 PO; -PANT40TA3 PO; +PROHANCE 279.3MG/ML 15ML VIAL As Ordered ONE; +PROHANCE 279.3MG/ML 5ML VIAL As Ordered ONE
--- NOTE | 2020-12-31 10:41 | REP ---
INDICATION: SPONDYLS W/O MYELOPATHY OR RADICULOPATHY, LUMBOSACR REGION. Rule out disc herniation or spinal stenosis. Patient reports chronic low back pain progressively worse over the last several months. COMPARISON: Comparison MRI study is from November 21, 2018.. TECHNIQUE: Sagittal and axial T1 and T2-weighted scans are acquired in the usual fashion with and without fat saturation. Sequences include spin echo, turbo spin-echo, and STIR imaging sequences. 20 mL of intravenous ProHance is administered and postcontrast axial and sagittal T1 weighted scans are acquired. FINDINGS: There is slight straightening of the normal lumbar lordosis. Degenerative disc disease is noted most pronounced at the L2-3 and L4-5 levels. There are reactive marrow changes on either side of these 2 disc levels slightly more prominent at L2-3 when compared with the prior study but otherwise unchanged. Some reactive marrow changes are noted at T12-L1 as well. The tip of the conus medullaris is normal in position and appearance at T12. There is a residual disc at S1-S2. Axial and sagittal images taken at L1-2 L2 show no focal disc protrusion. No spinal stenosis or foraminal narrowing is seen. At L2-L3, again noted is a central focal disc protrusion with cranial extension or extrusion along the posterior cortex of the L2 vertebral body. This indents the ventral aspect of the thecal sac in the midline and is unchanged from prior study November 21, 2018. There is diffuse bulging of the remainder of the L2-3 disc margin. No foraminal narrowing is seen. No overall central canal stenosis is seen. At L3-4, there is decreased disc space signal intensity. No spinal stenosis is seen. Mild facet and ligamentum flavum hypertrophy is noted. At L3-4, there is no evidence of central canal stenosis. Findings unchanged. At L4-L5, there is degenerative disc space narrowing. Diffuse disc bulging is seen. There is facet and ligamentum flavum hypertrophy again noted L4-5. These findings are felt to be unchanged. There is mild bulging of the foraminal segments of the disc bilaterally unchanged. No nerve root compression is appreciated. At L5-S1 there is facet hypertrophy bilaterally. No disc protrusion or thecal sac compression is seen. Postcontrast imaging demonstrates contrast enhancement in the reactive marrow changes on either side of the L2-3 and L4-5 disc spaces as was noted previously. No other significant contrast enhancement is appreciated. IMPRESSION: Degenerative spondylosis changes again noted. Central L2-3 disc protrusion with cranial extrusion is again noted unchanged. No new disc protrusion seen. <Electronically signed by Ashok Leong > 12/31/20 [id number]
== END ==
LOC: M RAD 16:56
PROVIDERS: ATTEND Physician Assistant
DX: M47.817 Spondylosis without myelopathy or radiculopathy, lumbosacral region (principal); M51.26 Other intervertebral disc displacement, lumbar region
CPT/HCPCS: 72158; A9576

== ENCOUNTER → 2021-03-27 | Outpatient (CLI) | payer OTHER ==
[~2021-03-27] MED LIST changes: -HM I200C PO; +IBUP200C34 PO; +OMEP40CA4 PO; -OMEP40CA97 PO; -PROHANCE 279.3MG/ML 15ML VIAL As Ordered ONE; -PROHANCE 279.3MG/ML 5ML VIAL As Ordered ONE
--- NOTE | 2021-03-27 08:20 | REP ---
INDICATION: NICOTINE DEPENDENCE. COMPARISON: 12/07/2017 TECHNIQUE: Low-dose chest CT without contrast FINDINGS: No nodules or areas of abnormal attenuation. No interval change compared to the previous study. Minimal fibrotic change right lung base. IMPRESSION: Lung rads 1: Negative <Electronically signed by Lorenzo Hernandez > 03/27/21 0816
== END ==
LOC: M RAD 07:58
PROVIDERS: ATTEND Physician Assistant
DX: F17.219 Nicotine dependence, cigarettes, with unspecified nicotine-induced disorders (principal)

== ENCOUNTER → 2021-09-02 | Outpatient (CLI) | payer OTHER ==
[~2021-09-02] MED LIST changes: +LOSA100T45 PO; -LOSA100T50 PO
== END ==
LOC: M LABSMTC 09:59
PROVIDERS: ATTEND Pediatrics
DX: Z20.822 Contact with and (suspected) exposure to COVID-19 (principal)

== ENCOUNTER → 2021-11-05 | Outpatient (CLI) | payer OTHER ==
[2021-11-05 15:44] LABS: BASO % 0.4 % (0.0-1.0); EOS # 0.1 10^3/uL (0.0-0.5); EOS % 1.1 % (0.0-3.0); HEMATOCRIT 41.5 % (42.0-52.0); HEMOGLOBIN 14.1 g/dl (13.5-17.5); LYMPH # 1.4 10^3/uL (1.5-5.0); LYMPH % 30.6 % (24.0-44.0); MEAN CORPUSCULAR HEMOGLOBIN 30.5 pg (27.0-33.0); MEAN CORPUSCULAR VOLUME 89.6 fl (80.0-96.0); MONO # 0.6 10^3/uL (0.0-0.8); MONO % 12.2 % (2.0-8.0); NEUTROPHILS # 2.6 10^3/uL (1.5-8.5); NEUTROPHILS % 55.7 % (36.0-66.0); PLATELET COUNT, AUTOMATED 280 10^3/uL (150-450); RED BLOOD COUNT 4.63 10^6/uL (4.30-6.10); WHITE BLOOD COUNT 4.7 10^3/uL (4.0-10.0)
[2021-11-05 16:01] LABS: HEMOGLOBIN A1c 5.3 %
[2021-11-05 16:10] LABS: ALBUMIN 4.6 GM/DL (3.2-5.2); ALT/SGPT 29 U/L (12-78); BILIRUBIN,TOTAL 0.7 MG/DL (0.2-1.0); BLOOD UREA NITROGEN 10 MG/DL (7-18); CALCIUM LEVEL 10.2 MG/DL (8.5-10.1); CARBON DIOXIDE LEVEL 31 MEQ/L (21-32); CHLORIDE LEVEL 100 MEQ/L (98-107); CHOLESTEROL LEVEL 125 MG/DL (<200); CHOLESTEROL RISK RATIO 2.777 (<5); CREATININE FOR GFR 0.86 MG/DL (0.70-1.30); FREE T4 1.33 NG/DL (0.76-1.46); GLOMERULAR FILTRATION RATE > 60.0 (>56); GLUCOSE, FASTING 105 MG/DL (70-100); HDL CHOLESTEROL 45 MG/DL (>40); LDL CHOLESTEROL 55 MG/DL (<100); NON-HDL-C 80 MG/DL; POTASSIUM SERUM 3.9 MEQ/L (3.5-5.1); SODIUM LEVEL 135 MEQ/L (136-145); THYROID STIMULATING HORMONE 0.782 uIU/ML (0.358-3.740); TOTAL PROTEIN 7.6 GM/DL (6.4-8.2); TRIGLYCERIDES LEVEL 123 MG/DL (<150)
[2021-11-05 16:23] LABS: MALB URINE SIEMENS 13.3 MG/L; MAU/CREAT RATIO 7.4 MCG/MG (0.0-30.0)
== END ==
LOC: M PLALAB 13:15
PROVIDERS: ATTEND Physician Assistant
DX: I10 Essential (primary) hypertension (principal)

== ENCOUNTER 2022-02-10 09:45 | Emergency (ER) | payer OTHER ==
[~2022-02-10] VITALS: Ht 188 cm; Wt 100.0 kg
[2022-02-10] MEDS ORDERED: BUSP10TA (10:09)
[2022-02-10] MEDS ORDERED: GABA-1171 (10:09)
[2022-02-10 11:23] LABS: RSV AMPLIFICATION NEGATIVE (NEGATIVE)
[2022-02-10] MEDS ORDERED: ACETAMINOPHEN 325 MG TAB PO ONE (11:55)
[2022-02-10] MEDS ORDERED: BENZONATATE 100MG CAPSULE PO ONE (11:55)
[2022-02-10 12:20] LABS: BASO % 0.3 % (0.0-1.0); EOS # 0.2 10^3/uL (0.0-0.5); EOS % 2.4 % (0.0-3.0); HEMATOCRIT 35.3 % (42.0-52.0); HEMOGLOBIN 12.1 g/dl (13.5-17.5); LYMPH # 2.1 10^3/uL (1.5-5.0); LYMPH % 27.8 % (24.0-44.0); MEAN CORPUSCULAR HEMOGLOBIN 30.5 pg (27.0-33.0); MEAN CORPUSCULAR HGB CONC 34.3 g/dl (32.0-36.5); MEAN CORPUSCULAR VOLUME 88.9 fl (80.0-96.0); MONO % 13.3 % (2.0-8.0); NEUTROPHILS # 4.2 10^3/uL (1.5-8.5); NEUTROPHILS % 55.9 % (36.0-66.0); PLATELET COUNT, AUTOMATED 300 10^3/uL (150-450); RED BLOOD COUNT 3.97 10^6/uL (4.30-6.10); WHITE BLOOD COUNT 7.4 10^3/uL (4.0-10.0)
[2022-02-10] MEDS ORDERED: ZITHTAB PO (13:00)
[2022-02-10] MEDS ORDERED: BENZ200C70 PO (13:00)
[2022-02-10] MEDS ORDERED: VENTAER INH (13:00)
[2022-02-10 13:14] VITALS: BP 148/78
== END 2022-02-10 13:24 | disposition home or self-care (01) ==
LOC: M ED 09:45
DX: J06.9 Acute upper respiratory infection, unspecified (principal); F17.200 Nicotine dependence, unspecified, uncomplicated; Z79.51 Long term (current) use of inhaled steroids; Z79.899 Other long term (current) drug therapy

== ENCOUNTER 2022-05-24 21:22 | Emergency (ER) | payer OTHER ==
[~2022-05-24] VITALS: Ht 188 cm; Wt 90.9 kg
[~2022-05-24 21:22] MED LIST changes: +BENZ200C70 PO; +BUSP10TA; +GABA-1171; +VENTAER INH; +ZITHTAB PO; +guaiFENesin ER 600 MG TAB PO SCH
[2022-05-24] MEDS ORDERED: LIDOCAINE VISCOUS 2% SOLN 15ML UDC SS ONE (22:45)
[2022-05-24] MEDS ORDERED: BENZONATATE 100MG CAPSULE PO ONE (22:45)
[2022-05-24] MEDS ORDERED: KETOROLAC 60MG 2ML VIAL IM ONE (22:45)
[2022-05-24] MEDS ORDERED: AMOXICILLIN 500 MG CAP PO ONE (23:25)
[2022-05-24] MEDS ORDERED: LIDO2SOL17 PO (23:27)
[2022-05-24] MEDS ORDERED: FLON1SPR NARES (23:27)
[2022-05-24] MEDS ORDERED: AMOX500C PO (23:27)
[2022-05-24] MEDS ORDERED: BENZ200C70 PO (23:27)
[2022-05-24 23:39] VITALS: BP 144/88
== END 2022-05-24 23:54 | disposition home or self-care (01) ==
LOC: M ED 21:22
DX: J02.0 Streptococcal pharyngitis (principal); B34.8 Other viral infections of unspecified site; R05.9 Cough, unspecified; I10 Essential (primary) hypertension; E78.5 Hyperlipidemia, unspecified; K21.9 Gastro-esophageal reflux disease without esophagitis; F17.200 Nicotine dependence, unspecified, uncomplicated; Z79.51 Long term (current) use of inhaled steroids; Z79.899 Other long term (current) drug therapy; Z79.811 Long term (current) use of aromatase inhibitors
CPT/HCPCS: 87486; 87581; 87633; 87798; 87880; 96372; 99283; J1885

== ENCOUNTER 2022-05-29 03:38 | Emergency (ER) | payer OTHER ==
[~2022-05-29 03:38] MED LIST changes: +AMOX500C PO; +FLON1SPR NARES; +LIDO2SOL17 PO; -guaiFENesin ER 600 MG TAB PO SCH
[2022-05-29 03:58] LABS: BASO % 0.4 % (0.0-1.0); EOS # 0.2 10^3/uL (0.0-0.5); EOS % 2.4 % (0.0-3.0); HEMATOCRIT 39.8 % (42.0-52.0); HEMOGLOBIN 13.7 g/dl (13.5-17.5); LYMPH # 3.9 10^3/uL (1.5-5.0); LYMPH % 46.2 % (24.0-44.0); MEAN CORPUSCULAR HEMOGLOBIN 31.2 pg (27.0-33.0); MEAN CORPUSCULAR HGB CONC 34.4 g/dl (32.0-36.5); MEAN CORPUSCULAR VOLUME 90.7 fl (80.0-96.0); MONO # 0.9 10^3/uL (0.0-0.8); MONO % 10.8 % (2.0-8.0); NEUTROPHILS # 3.4 10^3/uL (1.5-8.5); NEUTROPHILS % 39.5 % (36.0-66.0); PLATELET COUNT, AUTOMATED 361 10^3/uL (150-450); RED BLOOD COUNT 4.39 10^6/uL (4.30-6.10); WHITE BLOOD COUNT 8.5 10^3/uL (4.0-10.0)
[2022-05-29 04:09] LABS: INR 0.87
[2022-05-29 04:36] LABS: CPK CREATINE PHOSPHOKINASE 114 U/L (39-308)
[2022-05-29 04:49] LABS: ALT/SGPT 21 U/L (12-78); BILIRUBIN,DIRECT 0.1 MG/DL (0.0-0.2); BILIRUBIN,TOTAL 0.3 MG/DL (0.2-1.0); BLOOD UREA NITROGEN 7 MG/DL (7-18); CALCIUM LEVEL 9.3 MG/DL (8.5-10.1); CARBON DIOXIDE LEVEL 29 MEQ/L (21-32); CHLORIDE LEVEL 98 MEQ/L (98-107); CREATININE FOR GFR 0.85 MG/DL (0.70-1.30); GLOMERULAR FILTRATION RATE > 60.0 (>56); GLUCOSE, FASTING 133 MG/DL (70-100); LIPASE 363 U/L (73-393); NT-PRO BNP 15 PG/ML (<125); POTASSIUM SERUM 3.5 MEQ/L (3.5-5.1); SODIUM LEVEL 133 MEQ/L (136-145); TOTAL PROTEIN 7.3 GM/DL (6.4-8.2)
[2022-05-29] MEDS ORDERED: ISOVUE-370 76% 100ML VIAL As Ordered ONE (04:59)
[2022-05-29 06:45] LABS: CPK CREATINE PHOSPHOKINASE 114 U/L (39-308)
[2022-05-29] MEDS ORDERED: AZIT500T5 PO (06:49)
[2022-05-29] MEDS ORDERED: AZITHROMYCIN 250MG TABLET PO ONE (06:50)
[2022-05-29] MEDS ORDERED: ONDANSETRON 4MG 2ML VIAL IV ONE (07:55)
[2022-05-29 08:01] VITALS: BP 125/74
== END 2022-05-29 08:33 | disposition home or self-care (01) ==
LOC: M ED 03:38 → EDBD 03:38 → M ED 08:33
DX: R07.9 Chest pain, unspecified (principal); J02.0 Streptococcal pharyngitis; I10 Essential (primary) hypertension; E78.5 Hyperlipidemia, unspecified; K21.9 Gastro-esophageal reflux disease without esophagitis; F32.A Depression, unspecified; Z79.51 Long term (current) use of inhaled steroids; Z79.899 Other long term (current) drug therapy; Z79.811 Long term (current) use of aromatase inhibitors
CPT/HCPCS: 71045; 71275; 80048; 80076; 82550; 83690; 83880; 85025; 85610; 87486; 87581; 87633; 87798; 93005; 93041; 94760; 96374; 99285; J2405; Q9967

== ENCOUNTER → 2022-07-01 | Outpatient (REF) | payer OTHER ==
[~2022-07-01] MED LIST changes: +AZIT500T5 PO
== END ==
LOC: M LAB REF 16:14
PROVIDERS: ATTEND Ophthalmology
DX: H02.824 Cysts of left upper eyelid (principal)

== ENCOUNTER 2022-12-05 22:51 | Emergency (ER) | payer OTHER ==
[~2022-12-05] VITALS: Ht 188 cm; Wt 90.9 kg
[~2022-12-05 22:51] MED LIST changes: +LIDO15SO PO; -LIDO2SOL17 PO
[2022-12-05 22:52] VITALS: BP 134/88
== END 2022-12-06 01:01 | disposition left against medical advice (07) ==
LOC: M ED 22:51
DX: Z53.21 Procedure and treatment not carried out due to patient leaving prior to being seen by health care provider (principal)

== ENCOUNTER 2022-12-09 09:42 | Inpatient (IN) | payer OTHER ==
[~2022-12-09] VITALS: Ht 188 cm; Wt 86.9 kg
[~2022-12-09 09:42] MED LIST changes: -BUSP10TA; +BUSP10TA PO
[2022-12-09] MEDS ORDERED: NS 1,000 ML IV ONE (10:15)
[2022-12-09] MEDS ORDERED: IPRATROPIUM 0.5MG/ALBUTEROL 2.5MG INH SOL UD 3ML (DUONEB) NEB ONE (10:15)
[2022-12-09] MEDS ORDERED: ALBUTEROL SULFATE 2.5MG/0.5ML INH NEB SOLN INH ONE (10:15)
[2022-12-09 10:39] LABS: BASO % 0.4 % (0.0-1.0); EOS # 0.1 10^3/uL (0.0-0.5); EOS % 0.7 % (0.0-3.0); HEMATOCRIT 40.3 % (42.0-52.0); HEMOGLOBIN 13.9 g/dl (13.5-17.5); LYMPH # 2.1 10^3/uL (1.5-5.0); LYMPH % 20.2 % (24.0-44.0); MEAN CORPUSCULAR HEMOGLOBIN 30.2 pg (27.0-33.0); MEAN CORPUSCULAR HGB CONC 34.5 g/dl (32.0-36.5); MEAN CORPUSCULAR VOLUME 87.4 fl (80.0-96.0); MONO % 16.7 % (2.0-8.0); NEUTROPHILS # 6.4 10^3/uL (1.5-8.5); NEUTROPHILS % 61.3 % (36.0-66.0); PLATELET COUNT, AUTOMATED 344 10^3/uL (150-450); RED BLOOD COUNT 4.61 10^6/uL (4.30-6.10); WHITE BLOOD COUNT 10.4 10^3/uL (4.0-10.0)
[2022-12-09 10:49] LABS: INR 0.84; PROTHROMBIN TIME 11.7 SECONDS (12.5-14.5)
[2022-12-09 10:50] LABS: PARTIAL THROMBOPLASTIN TIME 30.9 SECONDS (24.8-34.2)
[2022-12-09 10:54] LABS: MONO # 1.7 10^3/uL (0.0-0.8)
[2022-12-09 11:23] LABS: CPK CREATINE PHOSPHOKINASE 197 U/L (46-171)
[2022-12-09 11:25] LABS: THYROID STIMULATING HORMONE 0.509 uIU/ML (0.55-4.78)
[2022-12-09 11:34] LABS: ALBUMIN 3.8 G/DL (3.2-5.2); ALKALINE PHOSPHATASE 63 U/L (46-116); ALT/SGPT < 9 U/L (7.0-40); AST/SGOT 11 U/L (<34); BILIRUBIN,TOTAL 0.7 MG/DL (0.3-1.2); BLOOD UREA NITROGEN 8 MG/DL (9-23); CALCIUM LEVEL 9.5 MG/DL (8.3-10.6); CARBON DIOXIDE LEVEL 31 MMOL/L (20-31); CHLORIDE LEVEL 92 MMOL/L (98-107); CREATININE FOR GFR 1.52 MG/DL (0.70-1.30); GLUCOSE, FASTING 90 MG/DL (74-106); MAGNESIUM LEVEL 1.9 MG/DL (1.8-2.4); POTASSIUM SERUM 2.7 MMOL/L (3.5-5.1); SODIUM LEVEL 131 MMOL/L (136-145); TOTAL PROTEIN 7.2 G/DL (5.7-8.2)
[2022-12-09 11:39] LABS: VENOUS BASE EXCESS -2.3 (-2.0-2.0); VENOUS HCO3 24.3 MEQ/L (23.0-27.0); VENOUS O2 SATURATION 98.2 % (60.0-80.0); VENOUS PARTIAL PRESSURE CO2 48.3 mmHg (38.0-50.0); VENOUS PARTIAL PRESSURE O2 133.9 mmHg (30.0-50.0); VENOUS STANDARD HCO3 22.6 MEQ/L; VENOUS TOTAL CO2 25.8 MEQ/L (24.0-28.0)
[2022-12-09] MEDS ORDERED: ISOVUE-370 76% 100ML VIAL As Ordered ONE (12:33)
[2022-12-09] MEDS ORDERED: POTASSIUM CHLORIDE 10MEQ SR TABLET PO ONE (14:15)
[2022-12-09] MEDS ORDERED: ONDANSETRON 4MG 2ML VIAL IV PRN (16:40)
[2022-12-09] MEDS ORDERED: BENZ200C70 PO (16:41)
[2022-12-09] MEDS ORDERED: AZIT500T5 PO (16:41)
[2022-12-09] MEDS ORDERED: TAMS1CAP17 PO (16:41)
[2022-12-09] MEDS ORDERED: ASPI-226 PO (16:41)
[2022-12-09] MEDS ORDERED: FLUT50SP33 NARES (16:41)
[2022-12-09] MEDS ORDERED: IBUP200C25 PO (16:41)
[2022-12-09] MEDS ORDERED: LIDO15SO PO (16:41)
[2022-12-09] MEDS ORDERED: VENTAER INH (16:41)
[2022-12-09] MEDS ORDERED: HOME MED LIST COMPLETE! XX SCH ×2 (16:45→17:40)
[2022-12-09] MEDS ORDERED: BENZONATATE 100MG CAPSULE PO PRN (17:15)
[2022-12-09 17:35] VITALS: BP 96/60
[2022-12-09] MEDS ORDERED: DEPA1TAB3 PO ×2 (17:36)
[2022-12-09] MEDS: AZITHROMYCIN 250MG TABLET PO SCH (18:05)
[2022-12-09 18:31] LABS: BLOOD UREA NITROGEN 9 MG/DL (9-23); CALCIUM LEVEL 9.1 MG/DL (8.3-10.6); CARBON DIOXIDE LEVEL 28 MMOL/L (20-31); CHLORIDE LEVEL 97 MMOL/L (98-107); CREATININE FOR GFR 1.15 MG/DL (0.70-1.30); GLOMERULAR FILTRATION RATE > 60.0 (>49); GLUCOSE, FASTING 127 MG/DL (74-106); POTASSIUM SERUM 3.8 MMOL/L (3.5-5.1); SODIUM LEVEL 133 MMOL/L (136-145)
[2022-12-09] MEDS: KCL 20MEQ in NS 1000ML 1,000 ML IV SCH (18:48)
[2022-12-09 20:00] VITALS: BP 106/53
[2022-12-09] MEDS: IPRATROPIUM 0.5MG/ALBUTEROL 2.5MG INH SOL UD 3ML (DUONEB) NEB SCH ×2 (20:13→23:04)
[2022-12-09] MEDS ORDERED: DIVALPROEX 500 MG TAB PO SCH (21:00)
[2022-12-09] MEDS ORDERED: ATORVASTATIN 20 MG TAB PO SCH (21:00)
[2022-12-09] MEDS ORDERED: TAMSULOSIN 0.4 MG CAP PO SCH (21:00)
[2022-12-09] MEDS: busPIRone 10 MG TAB PO SCH (21:12)
[2022-12-09] MEDS: HEPARIN SOD (PORCINE) 5000UNITS/ML 1ML VIAL/SYRINGE SC SCH (21:12)
[2022-12-09] MEDS ORDERED: NICOTINE 21MG/24HR 1 EA TRANSDERMAL TD PRN (21:30)
[2022-12-10] MEDS: IPRATROPIUM 0.5MG/ALBUTEROL 2.5MG INH SOL UD 3ML (DUONEB) NEB SCH ×3 (03:35→11:27)
[2022-12-10] MEDS: KCL 20MEQ in NS 1000ML 1,000 ML IV SCH (04:58)
[2022-12-10] MEDS: HEPARIN SOD (PORCINE) 5000UNITS/ML 1ML VIAL/SYRINGE SC SCH (04:58)
[2022-12-10 06:00] VITALS: BP 117/57
[2022-12-10 07:00] LABS: HEMATOCRIT 28.3 % (42.0-52.0); MEAN CORPUSCULAR HEMOGLOBIN 30.4 pg (27.0-33.0); MEAN CORPUSCULAR HGB CONC 34.3 g/dl (32.0-36.5); MEAN CORPUSCULAR VOLUME 88.7 fl (80.0-96.0); PLATELET COUNT, AUTOMATED 245 10^3/uL (150-450); RED BLOOD COUNT 3.19 10^6/uL (4.30-6.10); WHITE BLOOD COUNT 8.9 10^3/uL (4.0-10.0)
[2022-12-10 07:12] LABS: HEMOGLOBIN 9.7 g/dl (13.5-17.5)
[2022-12-10 07:29] LABS: BLOOD UREA NITROGEN 6 MG/DL (9-23); CALCIUM LEVEL 8.8 MG/DL (8.3-10.6); CARBON DIOXIDE LEVEL 27 MMOL/L (20-31); CHLORIDE LEVEL 101 MMOL/L (98-107); CREATININE FOR GFR 0.89 MG/DL (0.70-1.30); GLOMERULAR FILTRATION RATE > 60.0 (>49); GLUCOSE, FASTING 110 MG/DL (74-106); MAGNESIUM LEVEL 1.9 MG/DL (1.8-2.4); POTASSIUM SERUM 3.4 MMOL/L (3.5-5.1); SODIUM LEVEL 136 MMOL/L (136-145)
[2022-12-10] MEDS ORDERED: ASPIRIN 81MG ENTERIC TABLET PO SCH (09:00)
[2022-12-10] MEDS ORDERED: PANTOPRAZOLE 40MG TAB (PROTONIX) PO SCH (09:00)
[2022-12-10] MEDS ORDERED: DULoxetine 30MG CAPSULE (CYMBALTA) PO SCH (09:00)
[2022-12-10] MEDS ORDERED: DIVALPROEX 500 MG TAB PO SCH (09:00)
[2022-12-10] MEDS ORDERED: PANTOPRAZOLE 40MG VIAL IV SCH (09:00)
[2022-12-10] MEDS ORDERED: FLUTICASONE PROP 0.05% NASAL SPRAY 16 GM (FLONASE) NARES SCH (09:00)
[2022-12-10] MEDS ORDERED: predniSONE 20 MG TAB PO SCH (09:00)
[2022-12-10] MEDS: busPIRone 10 MG TAB PO SCH (09:06)
[2022-12-10] MEDS: AZITHROMYCIN 250MG TABLET PO SCH (09:07)
[2022-12-10] MEDS ORDERED: POTASSIUM CHLORIDE 10MEQ SR TABLET PO ONE (09:20)
[2022-12-10] MEDS ORDERED: LOSA25TA13 PO ×2 (12:48→13:53)
[2022-12-10] MEDS ORDERED: COMBAER6 INH ×2 (12:48→13:53)
[2022-12-10] MEDS ORDERED: PRED20TA PO ×3 (12:48→13:53)
[2022-12-10] MEDS ORDERED: AZIT-12 PO ×3 (12:48→13:53)
[2022-12-10] MEDS ORDERED: TIOT18INH INH ×2 (12:48→13:53)
[2022-12-10] MEDS ORDERED: ONDA-83 PO ×2 (12:53→13:53)
[2022-12-10] MEDS ORDERED: POTA-151 PO ×2 (12:53→13:53)
[2022-12-10] MEDS ORDERED: IPRA0.00 INH ×2 (12:53→13:53)
[2022-12-10] MEDS ORDERED: MAGN400C2 PO ×2 (12:53→13:53)
[2022-12-10 13:04] VITALS: BP 127/70
[2022-12-10 14:00] VITALS: BP 129/70
== END 2022-12-10 16:16 | disposition home or self-care (01) | DRG 469 ==
LOC: EDBD 09:42 → M ED 09:42 → M ED INP 16:34 → M MSPAV 17:28
PROVIDERS: ADMIT Internal Medicine; ATTEND Internal Medicine
DX: N17.9 Acute kidney failure, unspecified (principal); E87.3 Alkalosis; A08.39 Other viral enteritis; E87.1 Hypo-osmolality and hyponatremia; J44.1 Chronic obstructive pulmonary disease with (acute) exacerbation; B34.8 Other viral infections of unspecified site; E78.5 Hyperlipidemia, unspecified; E87.6 Hypokalemia; F31.9 Bipolar disorder, unspecified; I10 Essential (primary) hypertension; K21.9 Gastro-esophageal reflux disease without esophagitis; R11.2 Nausea with vomiting, unspecified; F17.200 Nicotine dependence, unspecified, uncomplicated

== ENCOUNTER → 2023-04-08 | Outpatient (CLI) | payer OTHER ==
[~2023-04-08] MED LIST changes: +ASPI-226 PO; +AZIT-12 PO; +COMBAER6 INH; +FLUT50SP33 NARES; +IBUP200C25 PO; +IPRA0.00 INH; -LOSA100T45 PO; +LOSA100T46 PO; +LOSA25TA13 PO; +MAGN400C2 PO; +ONDA-83 PO; +POTA-151 PO; +PRED20TA PO; +TAMS1CAP17 PO; +TIOT18INH INH
[2023-04-08 17:43] LABS: BASO % 0.6 % (0.0-1.0); EOS # 0.1 10^3/uL (0.0-0.5); HEMATOCRIT 42.4 % (42.0-52.0); LYMPH # 1.9 10^3/uL (1.5-5.0); LYMPH % 37.9 % (24.0-44.0); MEAN CORPUSCULAR VOLUME 90.8 fl (80.0-96.0); MONO # 0.6 10^3/uL (0.0-0.8); MONO % 12.9 % (2.0-8.0); NEUTROPHILS # 2.3 10^3/uL (1.5-8.5); NEUTROPHILS % 47.4 % (36.0-66.0); PLATELET COUNT, AUTOMATED 293 10^3/uL (150-450); RED BLOOD COUNT 4.67 10^6/uL (4.30-6.10); WHITE BLOOD COUNT 4.9 10^3/uL (4.0-10.0)
[2023-04-08 17:49] LABS: ALBUMIN 3.9 G/DL (3.2-5.2); ALKALINE PHOSPHATASE 64 U/L (46-116); ALT/SGPT 10 U/L (7.0-40); AST/SGOT < 8 U/L (<34); BILIRUBIN,TOTAL 0.5 MG/DL (0.3-1.2); BLOOD UREA NITROGEN 6 MG/DL (9-23); CALCIUM LEVEL 10.1 MG/DL (8.3-10.6); CARBON DIOXIDE LEVEL 30 MMOL/L (20-31); CHLORIDE LEVEL 103 MMOL/L (98-107); CHOLESTEROL LEVEL 114 MG/DL (<200); CHOLESTEROL RISK RATIO 2.79 (<5); CREATININE FOR GFR 0.95 MG/DL (0.70-1.30); FERRITIN 270.8 NG/ML (10.5-307.3); GLOMERULAR FILTRATION RATE > 60.0 (>49); GLUCOSE, FASTING 89 MG/DL (74-106); HDL CHOLESTEROL 40.8 MG/DL (>40); LDL CHOLESTEROL 55.4 MG/DL (<100); NON-HDL-C 73.2 MG/DL; POTASSIUM SERUM 4.3 MMOL/L (3.5-5.1); SODIUM LEVEL 137 MMOL/L (136-145); TOTAL PROTEIN 6.8 G/DL (5.7-8.2); TRIGLYCERIDES LEVEL 89 MG/DL (<150)
[2023-04-08 17:50] LABS: APPEARANCE, URINE CLEAR (CLEAR); BACTERIA, URINE AUTO NEGATIVE (NEGATIVE); BILIRUBIN, URINE AUTO NEGATIVE (NEGATIVE); BLOOD, URINE BLOOD NEGATIVE (NEGATIVE); COLOR, URINE AMBER (YELLOW); GLUCOSE, URINE (UA) AUTO NEGATIVE (NEGATIVE); KETONE, URINE AUTO TRACE mg/dL (NEGATIVE); LEUKOCYTE ESTERASE, URINE AUTO NEGATIVE (NEGATIVE); MUCUS, URINE SMALL (NEGATIVE); NITRITE, URINE AUTO NEGATIVE (NEGATIVE); PROTEIN, URINE AUTO NEGATIVE (NEGATIVE); RBC, URINE AUTO 1 /HPF (0-3); SPECIFIC GRAVITY URINE AUTO 1.017 (1.002-1.035); SQUAMOUS EPITHELIAL CELL UR AU 0 /HPF (0-6); WBC, URINE AUTO 1 /HPF (0-3)
[2023-04-08 18:25] LABS: HEPATITIS C VIRUS ABY INDEX 0.11 INDEX (<0.8)
== END ==
LOC: M PLALAB 14:48
PROVIDERS: ATTEND Family Medicine
DX: I10 Essential (primary) hypertension (principal); Z11.9 Encounter for screening for infectious and parasitic diseases, unspecified; E78.5 Hyperlipidemia, unspecified; Z12.5 Encounter for screening for malignant neoplasm of prostate; R63.4 Abnormal weight loss

== ENCOUNTER → 2023-06-28 | Outpatient (CLI) | payer OTHER ==
[~2023-06-28] MED LIST changes: +PROHANCE 279.3MG/ML 15ML VIAL As Ordered ONE; +PROHANCE 279.3MG/ML 5ML VIAL As Ordered ONE
== END ==
LOC: M RAD 12:44
PROVIDERS: ATTEND Family Medicine
DX: R56.9 Unspecified convulsions (principal); R51.9 Headache, unspecified
CPT/HCPCS: 70553; A9576

== ENCOUNTER → 2023-12-02 | Outpatient (CLI) | payer OTHER ==
[~2023-12-02] MED LIST changes: -LIDO15SO PO; +LIDO15SO8 PO; -PROHANCE 279.3MG/ML 15ML VIAL As Ordered ONE; -PROHANCE 279.3MG/ML 5ML VIAL As Ordered ONE
== END ==
LOC: M PLAIMG 14:23
PROVIDERS: ATTEND Nurse Practitioner Family
DX: M54.12 Radiculopathy, cervical region (principal)

== ENCOUNTER → 2023-12-06 | Outpatient (CLI) | payer OTHER ==
[2023-12-06 12:10] LABS: BLOOD UREA NITROGEN 7 MG/DL (9-23); CREATININE FOR GFR 0.87 MG/DL (0.70-1.30); GLOMERULAR FILTRATION RATE > 60.0 (>49)
== END ==
LOC: M LAB 10:21
PROVIDERS: ATTEND Psychiatry & Neurology Neurology
DX: I10 Essential (primary) hypertension (principal)

== ENCOUNTER 2024-12-07 02:34 | Emergency (ER) | payer OTHER ==
[~2024-12-07] VITALS: Ht 188 cm; Wt 83.5 kg
[~2024-12-07 02:34] MED LIST changes: +GABA-1490 PO; -GABA600T4 PO
[2024-12-07 07:22] VITALS: BP 133/69; TEMP 97.8; O2SAT 95
== END 2024-12-07 09:28 | disposition home or self-care (01) ==
LOC: M ED 02:34
DX: R05.9 Cough, unspecified (principal); B34.8 Other viral infections of unspecified site; I10 Essential (primary) hypertension; J44.9 Chronic obstructive pulmonary disease, unspecified; F31.9 Bipolar disorder, unspecified; F17.210 Nicotine dependence, cigarettes, uncomplicated; Z79.2 Long term (current) use of antibiotics; Z79.51 Long term (current) use of inhaled steroids; Z79.52 Long term (current) use of systemic steroids; Z79.899 Other long term (current) drug therapy

== ENCOUNTER 2025-03-20 07:36 | Day surgery (SDC) | payer OTHER ==
[~2025-03-20] VITALS: Ht 185.4 cm; Wt 83.4 kg
[~2025-03-20 07:36] MED LIST changes: +DIVA-41 PO; -DIVA500T94 PO
[2025-03-20] MEDS: IPRATROPIUM 0.5 MG/ALBUTEROL 2.5 MG INH SOL UD 3 ML NEB ONE (08:15)
[2025-03-20 09:33] VITALS: TEMP 97.9
[2025-03-20 09:49] VITALS: BP 134/70; O2SAT 98
== END 2025-03-20 09:54 | disposition home or self-care (01) ==
LOC: M OPP 07:36
PROVIDERS: ATTEND Internal Medicine Gastroenterology
DX: Z12.11 Encounter for screening for malignant neoplasm of colon (principal); D12.6 Benign neoplasm of colon, unspecified; K57.30 Diverticulosis of large intestine without perforation or abscess without bleeding; K64.0 First degree hemorrhoids; Z80.0 Family history of malignant neoplasm of digestive organs; K22.89 Other specified disease of esophagus; K44.9 Diaphragmatic hernia without obstruction or gangrene; R12 Heartburn; Z79.82 Long term (current) use of aspirin; Z79.51 Long term (current) use of inhaled steroids; Z79.899 Other long term (current) drug therapy; J44.9 Chronic obstructive pulmonary disease, unspecified; F17.210 Nicotine dependence, cigarettes, uncomplicated

== ENCOUNTER 2025-05-31 18:57 | Inpatient (IN) | payer OTHER ==
[~2025-05-31] VITALS: Ht 188 cm; Wt 77.1 kg
[2025-05-31 19:53] LABS: PLATELET COUNT, AUTOMATED 337 10^3/uL (150-450)
[2025-05-31 20:23] LABS: AMPHETAMINES LEVEL URINE NEGATIVE (NEGATIVE); BARBITURATES URINE NEGATIVE (NEGATIVE); BENZODIAZEPINES URINE NEGATIVE (NEGATIVE); COCAINE METABOLITE URINE NEGATIVE (NEGATIVE); METHADONE URINE NEGATIVE (NEGATIVE); OPIATES URINE NEGATIVE (NEGATIVE); PHENCYCLIDINE URINE NEGATIVE (NEGATIVE)
[2025-05-31 20:25] LABS: ETHYL ALCOHOL (ETHANOL) < 0.003 % (0.000-0.010)
[2025-05-31 20:27] LABS: ALT/SGPT 11 U/L (7.0-40); AST/SGOT 15 U/L (<34); CALCIUM LEVEL 9.7 MG/DL (8.3-10.6); CANNABINOIDS URINE POSITIVE (NEGATIVE); CARBON DIOXIDE LEVEL 27 MMOL/L (20-31); CHLORIDE LEVEL 100 MMOL/L (98-107); CREATININE FOR GFR 0.77 MG/DL (0.70-1.30); GLOMERULAR FILTRATION RATE > 90.0 (>49); POTASSIUM SERUM 4.1 MMOL/L (3.5-5.1); SALICYLATE LEVEL < 3.0 MG/DL (<30); SODIUM LEVEL 134 MMOL/L (136-145)
[2025-06-01] MEDS ORDERED: OLANZapine 5 MG TAB PO PRN (00:15)
[2025-06-01 03:30] VITALS: BP 146/89; TEMP 97.8; O2SAT 99
[2025-06-01] MEDS: IBUPROFEN 400 MG TAB PO PRN (08:49)
[2025-06-01] MEDS ORDERED: LOSA25TA13 PO (11:15)
[2025-06-01] MEDS ORDERED: COMBAER6 INH (11:15)
[2025-06-01] MEDS ORDERED: MAGN400T35 PO (11:15)
[2025-06-01] MEDS ORDERED: ONDA-83 PO (11:15)
[2025-06-01] MEDS ORDERED: POTA-298 PO (11:15)
[2025-06-01] MEDS ORDERED: HOME MED LIST COMPLETE! XX SCH (11:20)
[2025-06-01] MEDS ORDERED: COMBIVENT RESPIMAT 100-20 MCG INHALER 4 GM INH PRN (12:20)
[2025-06-01] MEDS ORDERED: FLUTICASONE PROPIONATE 0.05% NASAL SPRAY 16 GM NARES PRN (12:20)
[2025-06-01] MEDS: NICOTINE 14 MG/24 HR TRANSDERMAL TD PRN (12:43)
[2025-06-01] MEDS: DIVALPROEX 500 MG TAB PO SCH ×2 (13:27→20:16)
[2025-06-01 13:28] VITALS: BP 145/75; TEMP 98.4; O2SAT 98
[2025-06-01] MEDS: MAGNESIUM OXIDE 400 MG TAB PO SCH (13:28)
[2025-06-01] MEDS: ASPIRIN 81 MG ENTERIC TABLET PO SCH (13:28)
[2025-06-01] MEDS: POTASSIUM CHLORIDE 10MEQ SR TABLET PO SCH (13:28)
[2025-06-01] MEDS: PANTOPRAZOLE 40MG TAB PO SCH (13:28)
[2025-06-01] MEDS: LOSARTAN 25 MG TAB PO SCH (13:34)
[2025-06-01] MEDS: ATORVASTATIN 20 MG TAB PO SCH (20:16)
[2025-06-01] MEDS: QUEtiapine FUMARATE 50MG TAB PO SCH (20:17)
[2025-06-01] MEDS: TAMSULOSIN 0.4 MG CAP PO SCH (20:17)
[2025-06-02 06:41] VITALS: BP 114/62; TEMP 97.1; O2SAT 95
[2025-06-02] MEDS: ACETAMINOPHEN 325 MG TAB PO PRN (09:27)
[2025-06-02 14:26] VITALS: BP 136/69; TEMP 98.2; O2SAT 98
[2025-06-02] MEDS: traZODone 50 MG TAB PO PRN (22:26)
[2025-06-03 06:37] VITALS: BP 134/90; TEMP 97.5; O2SAT 95
[2025-06-03 15:31] VITALS: BP 151/67; TEMP 97.5; O2SAT 98
[2025-06-03] MEDS: MOM 30 ML SUSPENSION UDC PO PRN (18:21)
[2025-06-04 06:22] VITALS: BP 119/63; TEMP 97.4; O2SAT 100
[2025-06-04 15:13] VITALS: BP 147/72; TEMP 97.5; O2SAT 98
[2025-06-04] MEDS: MAALOX 30 ML SUSP *UDC PO PRN (20:47)
[2025-06-05 06:25] VITALS: BP 135/84; TEMP 98.1; O2SAT 97
[2025-06-05 08:15] VITALS: BP 143/93
[2025-06-05 15:57] VITALS: BP 144/90; TEMP 97.7; O2SAT 97
[2025-06-06 06:24] VITALS: BP 136/72; TEMP 97; O2SAT 97
[2025-06-06 08:21] VITALS: BP 164/96
[2025-06-06 14:53] VITALS: BP 143/94; TEMP 97.9; O2SAT 99
[2025-06-07] MEDS ORDERED: BUSP10TA PO (01:35)
[2025-06-07] MEDS ORDERED: DEPA1TAB3 PO ×2 (01:35)
[2025-06-07] MEDS ORDERED: DULO1CAP6 PO (01:35)
[2025-06-07] MEDS ORDERED: TRAZ-252 PO (01:35)
[2025-06-07 06:25] VITALS: BP 117/61; TEMP 97.3; O2SAT 97
[2025-06-07 15:37] VITALS: BP 141/73; TEMP 98.2; O2SAT 95
[2025-06-08 06:27] VITALS: BP 140/66; TEMP 98; O2SAT 96
[2025-06-08 08:20] VITALS: BP 141/80
[2025-06-08 15:13] VITALS: BP 111/60; TEMP 98; O2SAT 97
[2025-06-09 06:18] VITALS: BP 123/66; TEMP 98.2; O2SAT 99
[2025-06-09 08:24] VITALS: BP 168/90
[2025-06-09 14:48] VITALS: BP 141/73; TEMP 97.8; O2SAT 99
[2025-06-10 06:38] VITALS: BP 135/60; TEMP 98.1; O2SAT 98
[2025-06-10 08:46] VITALS: BP 182/84
[2025-06-10 08:49] VITALS: BP 182/84
== END 2025-06-10 10:09 | disposition home or self-care (01) | DRG 753 ==
LOC: M ED 18:57 → M PSY 06-01 00:14 → M ED INP 06-01 00:14 → UNDOADMIN 06-01 00:14
PROVIDERS: ADMIT Psychiatry & Neurology Neurology; ATTEND Internal Medicine
DX: F31.32 Bipolar disorder, current episode depressed, moderate (principal); E87.1 Hypo-osmolality and hyponatremia; R45.851 Suicidal ideations; F41.0 Panic disorder [episodic paroxysmal anxiety]; F12.90 Cannabis use, unspecified, uncomplicated; F17.200 Nicotine dependence, unspecified, uncomplicated; Z79.899 Other long term (current) drug therapy; Z79.82 Long term (current) use of aspirin; I10 Essential (primary) hypertension; J44.9 Chronic obstructive pulmonary disease, unspecified; K21.9 Gastro-esophageal reflux disease without esophagitis; N40.0 Benign prostatic hyperplasia without lower urinary tract symptoms; M54.16 Radiculopathy, lumbar region; Z63.0 Problems in relationship with spouse or partner

== ENCOUNTER 2025-06-12 03:21 | Emergency (ER) | payer OTHER ==
[~2025-06-12] VITALS: Ht 188 cm; Wt 84.1 kg
[~2025-06-12 03:21] MED LIST changes: +MAGN400T35 PO; +POTA-298 PO; +TRAZ-252 PO
[2025-06-12] MEDS: KETOROLAC 30 MG/ML 1 ML VIAL IV ONE (03:55)
[2025-06-12] MEDS: ONDANSETRON 4MG/2ML VIAL IV ONE (03:55)
[2025-06-12] MEDS: NS (Normal Saline) 0.9% 1,000 ML IV ONE (03:55)
[2025-06-12] MEDS: METHOCARBAMOL 1,000 MG/10 ML VIAL IV ONE (03:59)
[2025-06-12 04:04] LABS: BASO # 0.0 10^3/uL (0.0-0.2); BASO % 0.3 % (0.0-1.0); EOS # 0.2 10^3/uL (0.0-0.5); EOS % 1.5 % (0.0-3.0); LYMPH # 2.5 10^3/uL (1.5-5.0); LYMPH % 25.0 % (24.0-44.0); MONO # 1.2 10^3/uL (0.0-0.8); MONO % 12.1 % (2.0-8.0); NEUTROPHILS # 6.1 10^3/uL (1.5-8.5); NEUTROPHILS % 60.7 % (36.0-66.0); PLATELET COUNT, AUTOMATED 340 10^3/uL (150-450)
[2025-06-12 04:34] LABS: ALT/SGPT 12 U/L (7.0-40); AST/SGOT 17 U/L (<34); CALCIUM LEVEL 9.6 MG/DL (8.3-10.6); CARBON DIOXIDE LEVEL 24 MMOL/L (20-31); CHLORIDE LEVEL 93 MMOL/L (98-107); CREATININE FOR GFR 0.74 MG/DL (0.70-1.30); GLOMERULAR FILTRATION RATE > 90.0 (>49); POTASSIUM SERUM 3.8 MMOL/L (3.5-5.1); SODIUM LEVEL 127 MMOL/L (136-145)
[2025-06-12 04:46] LABS: KETONE, URINE AUTO RFX TRACE mg/dL (NEGATIVE); LEUKOCYTE ESTERASE UR AUTO RFX NEGATIVE (NEGATIVE); MUCUS, URINE RFX MODERATE (NEGATIVE); NITRITE, URINE AUTO RFX NEGATIVE (NEGATIVE); RBC, URINE AUTO RFX 3 /HPF (0-3); SQUAM EPITHELIAL CELL UR AURFX 0 /HPF (0-6); WBC, URINE AUTO RFX 2 /HPF (0-3)
[2025-06-12] MEDS: MORPHINE 4 MG/ML 1 ML VIAL IV PRN (11:01)
[2025-06-12] MEDS ORDERED: AMOX875T2 PO (12:31)
[2025-06-12] MEDS ORDERED: KETO-204 PO (12:31)
[2025-06-12 12:48] VITALS: BP 162/87; TEMP 98.6; O2SAT 94
== END 2025-06-12 12:56 | disposition home or self-care (01) ==
LOC: M ED 03:21
DX: K52.9 Noninfective gastroenteritis and colitis, unspecified (principal); N30.00 Acute cystitis without hematuria; K21.9 Gastro-esophageal reflux disease without esophagitis; E78.5 Hyperlipidemia, unspecified; J98.11 Atelectasis; I10 Essential (primary) hypertension; F31.9 Bipolar disorder, unspecified; J43.9 Emphysema, unspecified; K57.30 Diverticulosis of large intestine without perforation or abscess without bleeding; K59.00 Constipation, unspecified; F17.200 Nicotine dependence, unspecified, uncomplicated; Z79.2 Long term (current) use of antibiotics; Z79.82 Long term (current) use of aspirin; Z79.02 Long term (current) use of antithrombotics/antiplatelets; Z79.899 Other long term (current) drug therapy
CPT/HCPCS: 74176; 80048; 80076; 81001; 83690; 85025; 93041; 96361; 96374; 96375; 99285; J1885; J2405; J2800

== ENCOUNTER 2025-06-26 14:52 | Emergency (ER) | payer OTHER ==
[~2025-06-26] VITALS: Ht 188 cm; Wt 84.8 kg
[~2025-06-26 14:52] MED LIST changes: +AMOX875T2 PO; +KETO-204 PO
[2025-06-26] MEDS: TETANUS/DIPHTH/ACEL. PERTUSSIS 0.5 ML SYR IM.IMMUN ONE (17:45)
[2025-06-26] MEDS: LIDOCAINE 2% MDV 20 ML VIAL SC ONE (17:48)
[2025-06-26] MEDS ORDERED: BACI500O8 TOP (18:20)
[2025-06-26] MEDS: NEOSPORIN OINT 0.9 GM PKT TOP ONE (18:26)
[2025-06-26 18:31] VITALS: BP 160/90; TEMP 97.2; O2SAT 98
== END 2025-06-26 18:36 | disposition home or self-care (01) ==
LOC: M ED 14:52
DX: S61.211A Laceration without foreign body of left index finger without damage to nail, initial encounter (principal); W26.0XXA Contact with knife, initial encounter; I10 Essential (primary) hypertension; K21.9 Gastro-esophageal reflux disease without esophagitis; F17.200 Nicotine dependence, unspecified, uncomplicated; E78.5 Hyperlipidemia, unspecified; F41.9 Anxiety disorder, unspecified; Y92.009 Unspecified place in unspecified non-institutional (private) residence as the place of occurrence of the external cause; Y93.89 Activity, other specified; Y99.9 Unspecified external cause status; Z23 Encounter for immunization; Z79.2 Long term (current) use of antibiotics; Z79.82 Long term (current) use of aspirin; Z79.899 Other long term (current) drug therapy; Z79.02 Long term (current) use of antithrombotics/antiplatelets